=== PATIENT | female | born 1930 | race Hispanic/Latino ===

== ENCOUNTER 2017-01-03 13:16 | Outpatient (CLI) | payer MEDICARE, OTHER ==
--- NOTE | 2017-01-04 09:16 | Mammography Report ---
BILATERAL MAMMOGRAM with CAD: HISTORY: Cancer screening. Comparison study is dated March 27, 2013. FINDINGS: There are scattered fibroglandular densities (approximately 25%-50% glandular). No mass, distortion, suspicious calcification, or skin change is seen. IMPRESSION: Negative mammogram. There is no mammographic evidence of malignancy. RECOMMENDATION: Follow-up per ACS guidelines. BI-RADS CATEGORY: 1 = Negative ACR BI-RADS MAMMOGRAPHIC CODES: 0 = Needs additional imaging evaluation; 1 = Negative; 2 = Benign; 3 = Probably benign; 4 = Suspicious; 5 = Malignant; 6 = Known biopsy-proven malignancy COMMENT: 1. Dense breast tissue, i.e., adenosis, fibrocystic changes, etc., may obscure an underlying neoplasm. 2. Approximately 10% of cancers are not detected with mammography. 3. A negative mammography report should not delay biopsy if a clinically suspicious mass is present. COMMENT: Patient follow-up letters are generated in eventuosity.
== END 2017-01-03 13:17 | disposition home or self-care (01) ==
LOC: MAMMO 13:16
PROVIDERS: ATTEND Family Medicine
DX: Z12.31 Encounter for screening mammogram for malignant neoplasm of breast (principal)
CPT/HCPCS: 77067; G0202

== ENCOUNTER 2017-10-10 11:24 | Outpatient (CLI) | payer MEDICARE, OTHER ==
--- NOTE | 2017-10-12 07:50 | Vascular Lab Report ---
Right Lower Extremity Venous Duplex Study: Reason for Exam: Pain of the right lower extremity. Comments on the Right: All veins visualized are freely compressible without evidence of internal echogenicity. Flow is spontaneous and phasic throughout. No evidence of acute or chronic thrombus is seen in any of the vessels visualized. Comments on the Left: A limited duplex study was done of the proximal veins of the left lower extremity. All veins visualized are freely compressible without evidence of internal echogenicity. Flow is spontaneous and phasic throughout. No evidence of acute or chronic thrombus is seen in any of the vessels visualized. Impression: No evidence of acute or chronic deep venous thrombosis in the right lower extremity.
== END 2017-10-10 11:25 | disposition home or self-care (01) ==
LOC: VAS 11:24
PROVIDERS: ATTEND Family Medicine
DX: M79.661 Pain in right lower leg (principal)

== ENCOUNTER 2019-10-15 12:53 | Inpatient (IN) | payer MEDICARE, OTHER ==
--- NOTE | 2019-10-15 13:07 | Emergency Department Report ---
Blank Doc - Documentation Documentation: 89-year-old female that presents with CP and SOB. Was DX with PNA by PCP. This initial assessment/diagnostic orders/clinical plan/treatment(s) is/are subject to change based on patient's health status, clinical progression and re- assessment by fellow clinical providers in the ED. Further treatment and workup at subsequent clinical providers discretion. Patient/guardians urged not to elope from the ED as their condition may be serious if not clinically assessed and managed. Initial orders include: 1- Patient sent to MAIN ED for further evaluation and treatment 2- labs 3- EKG 4- CXR
[2019-10-15] MEDS ORDERED: ASPIRIN 81 MG TAB CHEW PO ONE (13:30)
[2019-10-15] MEDS ORDERED: ALBUTEROL 2.5 MG/3 ML NEBU IH ONE (13:31)
--- NOTE | 2019-10-15 13:34 | Emergency Department Report ---
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 SHE WAS TOLD SHE HAD PNA AND WAS STARTED ON AMOX/FLONASE AND DELSYM. SHE HAS HAD WORSENING SOB SO SHE COMES TO ER PMH GERD LBBB NUC IN 2016 NOMRAL; EF 55-60 HOME MEDS AMOX FLONASE DELSYM PPI ASA- SOMETIMES ANOTHER MED STARTS WITH "T" PT CAN NOT RECALL QUIT SMOKING 24 Y AGO PCP ESTRADA CARDS [facility] HEART DENIES FEVER OR CHILLS. ENDORSES COUGH FOR 1 YEAR. ON ADMIT TO ER- NO FEVER/TACHYCARDIA OR HYPOTENSION -: Gradual Context: recent illness Other Symptoms: cough Treatments Prior to Arrival: other Aspirin use within the Past 7 Days: (0) No - Related Data On Oral Contraceptives: No Home Medications Medication Instructions Recorded Confirmed Last Taken Aspirin [Aspirin BABY CHEW TAB] 81 mg PO QDAY 05/10/16 10/15/19 10/15/19 17:08 Esomeprazole Magnesium [NexIUM] 40 mg PO QDAY 05/10/16 10/15/19 10/14/19 08:00 Amoxicillin [Trimox CAP] 500 mg PO BID 10/15/19 10/15/19 10/14/19 14:00 Fluticasone [Flonase] 1 spray NS QDAY 10/15/19 10/15/19 10/14/19 21:00 predniSONE [Deltasone] 10 mg PO QDAY 10/15/19 10/15/19 10/15/19 08:00 Allergies Allergy/AdvReac Type Severity Reaction Status Date / Time No Known Allergies Allergy Unverified 05/10/16 12:42 Heart Score - HEART Score History: Slightly suspicious EKG: Normal Age: > 65 Risk factors: 1-2 risk factors Troponin: < normal limit HEART Score: 3 ED Review of Systems ROS: Stated complaint: EDGARDO Other details as noted in HPI Comment: All other systems reviewed and negative ED Past Medical Hx - Past Medical History Previous Medical History?: Yes Hx Hypertension: Yes Hx CVA: No Hx Heart Attack/AMI: No (NORMAL KIRTI 2015; EF 5560) Hx Congestive Heart Failure: No Hx Diabetes: No Hx Deep Vein Thrombosis: No Hx Pulmonary Embolism: No Hx GERD: Yes Hx Liver Disease: No Hx Renal Disease: No Hx of Cancer: No Hx Sickle Cell Disease: No Hx Arthritis: No Hx Headaches / Migraines: No Hx Seizures: No Hx Kidney Stones: No Hx Psychiatric Treatment: No Hx Asthma: No Hx COPD: Yes (SMOKER/ BRONCHITIS) Hx Tuberculosis: No Hx Dementia: No Hx HIV: No Additional medical history: KNOWN LBBB - Surgical History Past Surgical History?: Yes Hx Appendectomy: Yes Hx Breast Surgery: Yes Additional Surgical History: Hysterectomy - Family History Family history: no significant - Social History Smoking Status: Never Smoker Substance Use Type: None - Medications Home Medications: Home Medications Medication Instructions Recorded Confirmed Last Taken Type Aspirin [Aspirin BABY CHEW TAB] 81 mg PO QDAY 05/10/16 10/15/19 10/15/19 17:08 History Esomeprazole Magnesium [NexIUM] 40 mg PO QDAY 05/10/16 10/15/19 10/14/19 08:00 History Amoxicillin [Trimox CAP] 500 mg PO BID 10/15/19 10/15/19 10/14/19 14:00 History Fluticasone [Flonase] 1 spray NS QDAY 10/15/19 10/15/19 10/14/19 21:00 History predniSONE [Deltasone] 10 mg PO QDAY 10/15/19 10/15/19 10/15/19 08:00 History ED Physical Exam - General Limitations: No Limitations General appearance: alert, in no apparent distress, anxious - Head Head exam: Present: atraumatic, normocephalic - Eye Eye exam: Present: normal appearance - ENT ENT exam: Present: mucous membranes moist - Neck Neck exam: Present: normal inspection - Respiratory Respiratory exam: Present: normal lung sounds bilaterally, rales (BILATERAL). Absent: respiratory distress - Cardiovascular Cardiovascular Exam: Present: regular rate, normal rhythm. Absent: systolic murmur, diastolic murmur, rubs, gallop - GI/Abdominal GI/Abdominal exam: Present: soft, normal bowel sounds - Extremities Exam Extremities exam: Present: normal inspection - Back Exam Back exam: Present: normal inspection - Neurological Exam Neurological exam: Present: alert, oriented X3 - Psychiatric Psychiatric exam: Present: normal affect, normal mood - Skin Skin exam: Present: warm, dry, intact, normal color. Absent: rash ED Course Vital Signs 10/15/19 10/15/19 10/15/19 13:01 13:26 13:30 Temperature 98.2 F Pulse Rate 72 74 Pulse Rate [ Anterior Bilateral Throughout] Respiratory 24 28 H Rate Respiratory Rate [Anterior Bilateral Throughout] Blood Pressure 152/80 150/88 Blood Pressure [Left] O2 Sat by Pulse 98 100 100 Oximetry 10/15/19 10/15/19 10/15/19 13:31 13:40 13:45 Temperature Pulse Rate 70 66 Pulse Rate [ 76 Anterior Bilateral Throughout] Respiratory 22 26 H Rate Respiratory 20 Rate [Anterior Bilateral Throughout] Blood Pressure Blood Pressure 150/88 [Left] O2 Sat by Pulse 100 100 Oximetry 10/15/19 10/15/19 10/15/19 13:50 14:00 14:12 Temperature Pulse Rate 73 72 Pulse Rate [ Anterior Bilateral Throughout] Respiratory 22 26 H Rate Respiratory Rate [Anterior Bilateral Throughout] Blood Pressure 151/85 138/70 148/70 Blood Pressure [Left] O2 Sat by Pulse 99 99 96 Oximetry 10/15/19 10/15/19 10/15/19 14:14 14:20 14:30 Temperature Pulse Rate 73 72 72 Pulse Rate [ Anterior Bilateral Throughout] Respiratory 20 21 28 H Rate Respiratory Rate [Anterior Bilateral Throughout] Blood Pressure 138/84 138/84 Blood Pressure 142/79 [Left] O2 Sat by Pulse 99 99 99 Oximetry 10/15/19 10/15/19 10/15/19 14:40 14:50 15:00 Temperature Pulse Rate 73 73 69 Pulse Rate [ Anterior Bilateral Throughout] Respiratory 14 28 H 11 L Rate Respiratory Rate [Anterior Bilateral Throughout] Blood Pressure 139/82 152/80 159/81 Blood Pressure [Left] O2 Sat by Pulse 98 98 98 Oximetry 10/15/19 10/15/19 10/15/19 15:10 15:20 15:30 Temperature Pulse Rate 72 75 72 Pulse Rate [ Anterior Bilateral Throughout] Respiratory 27 H 17 22 Rate Respiratory Rate [Anterior Bilateral Throughout] Blood Pressure 159/81 152/77 154/82 Blood Pressure [Left] O2 Sat by Pulse 98 97 99 Oximetry 10/15/19 10/15/19 10/15/19 15:40 15:50 16:00 Temperature Pulse Rate 73 73 72 Pulse Rate [ Anterior Bilateral Throughout] Respiratory 21 27 H 20 Rate Respiratory Rate [Anterior Bilateral Throughout] Blood Pressure 154/82 161/91 156/94 Blood Pressure [Left] O2 Sat by Pulse 99 97 97 Oximetry - Reevaluation(s) Reevaluation #1: 10/15/[address] DESOUZA- WILL ADMIT Reevaluation #2: 10/15/19 15:15 LAB NOTIFIED ER OF LACTIC ACID FLUIDS ORDERED ELROY score - Elroy Score Age > 65: (1) Yes Aspirin use within the Past 7 Days: (0) No 3 or more CAD Risk Factors: (0) No 2 or more Angina events in past 24 hrs: (0) No Known CAD with more than 50% Stenosis: (0) No Elevated Cardiac Markers: (0) No ST Deviation Greater than 0.5mm: (0) No LEROY Score: 1 ED Medical Decision Making - Lab Data Result diagrams: 10/15/19 13:37 10/15/19 13:37 - EKG Data EKG shows normal: sinus rhythm Rate: normal - EKG Data When compared to previous EKG there are: no significant change Interpretation: no acute changes, other (KNOWN LBBB) - Radiology Data Radiology results: report reviewed, image reviewed - Medical Decision Making Lab Results 10/15/19 10/15/19 10/15/19 Range/Units 13:37 13:37 13:37 WBC 8.3 (4.5-11.0) K/mm3 RBC 3.61 L (3.65-5.03) M/mm3 Hgb 11.8 (10.1-14.3) gm/dl Hct 34.3 (30.3-42.9) % MCV 95 (79-97) fl MCH 33 H (28-32) pg MCHC 34 (30-34) % RDW 14.3 (13.2-15.2) % Plt Count 218 (140-440) K/mm3 Lymph % (Auto) 16.9 (13.4-35.0) % [place] % (Auto) 11.1 H (0.0-7.3) % Eos % (Auto) 1.0 (0.0-4.3) % Baso % (Auto) 0.5 (0.0-1.8) % Lymph # 1.4 (1.2-5.4) K/mm3 [place] # 0.9 H (0.0-0.8) K/mm3 Eos # 0.1 (0.0-0.4) K/mm3 Baso # 0.0 (0.0-0.1) K/mm3 Seg Neutrophils % 70.5 H (40.0-70.0) % Seg Neutrophils # 5.9 (1.8-7.7) K/mm3 PT 14.6 (12.2-14.9) Sec. INR 1.15 H (0.87-1.13) APTT 28.0 (24.2-36.6) Sec. Sodium 131 L (137-145) mmol/L Potassium 3.9 (3.6-5.0) mmol/L Chloride 94.9 L (98-107) mmol/L Carbon Dioxide 19 L (22-30) mmol/L Anion Gap 21 mmol/L BUN 21 H (7-17) mg/dL Creatinine 1.1 (0.7-1.2) mg/dL Estimated GFR 47 ml/min BUN/Creatinine Ratio 19 % Glucose 106 H (65-100) mg/dL Calcium 9.3 (8.4-10.2) mg/dL Magnesium 1.80 (1.7-2.3) mg/dL Total Bilirubin 0.60 (0.1-1.2) mg/dL AST 25 (5-40) units/L ALT 34 (7-56) units/L Alkaline Phosphatase 89 (35-129) units/L Troponin T 0.012 (0.00-0.029) ng/mL NT-Pro-B Natriuret Pep (0-900) pg/mL Total Protein 6.4 (6.3-8.2) g/dL Albumin 3.6 L (3.9-5) g/dL Albumin/Globulin Ratio 1.3 % 10/15/19 Range/Units 13:37 WBC (4.5-11.0) K/mm3 RBC (3.65-5.03) M/mm3 Hgb (10.1-14.3) gm/dl Hct (30.3-42.9) % MCV (79-97) fl MCH (28-32) pg MCHC (30-34) % RDW (13.2-15.2) % Plt Count (140-440) K/mm3 Lymph % (Auto) (13.4-35.0) % [place] % (Auto) (0.0-7.3) % Eos % (Auto) (0.0-4.3) % Baso % (Auto) (0.0-1.8) % Lymph # (1.2-5.4) K/mm3 [place] # (0.0-0.8) K/mm3 Eos # (0.0-0.4) K/mm3 Baso # (0.0-0.1) K/mm3 Seg Neutrophils % (40.0-70.0) % Seg Neutrophils # (1.8-7.7) K/mm3 PT (12.2-14.9) Sec. INR (0.87-1.13) APTT (24.2-36.6) Sec. Sodium (137-145) mmol/L Potassium (3.6-5.0) mmol/L Chloride (98-107) mmol/L Carbon Dioxide (22-30) mmol/L Anion Gap mmol/L BUN (7-17) mg/dL Creatinine (0.7-1.2) mg/dL Estimated GFR ml/min BUN/Creatinine Ratio % Glucose (65-100) mg/dL Calcium (8.4-10.2) mg/dL Magnesium (1.7-2.3) mg/dL Total Bilirubin (0.1-1.2) mg/dL AST (5-40) units/L ALT (7-56) units/L Alkaline Phosphatase (35-129) units/L Troponin T (0.00-0.029) ng/mL NT-Pro-B Natriuret Pep 70184 H (0-900) pg/mL Total Protein (6.3-8.2) g/dL Albumin (3.9-5) g/dL Albumin/Globulin Ratio % Vital Signs 10/15/19 10/15/19 10/15/19 13:01 13:31 13:45 Temperature 98.2 F Pulse Rate 72 70 Pulse Rate [ 76 Anterior Bilateral Throughout] Respiratory 24 22 Rate Respiratory 20 Rate [Anterior Bilateral Throughout] Blood Pressure 152/80 Blood Pressure 150/88 [Left] O2 Sat by Pulse 98 100 Oximetry 10/15/19 14:14 Temperature Pulse Rate 73 Pulse Rate [ Anterior Bilateral Throughout] Respiratory 20 Rate Respiratory Rate [Anterior Bilateral Throughout] Blood Pressure Blood Pressure 142/79 [Left] O2 Sat by Pulse 99 Oximetry KNOWN LBBB WITH NORMAL KIRTI IN 2016; TROP NEG; NORMAL EF AT THAT TIME xray noted labs noted antibiotics for CAP NS per sepsis protocol- discussed with Dr Desouza Staffed with Dr Villagomez Admit to hospital given failed outpatient management of CAP. Pt and significant other verbalize understanding of plan of care. - Differential Diagnosis RO ACS/ PNA Critical care attestation.: If time is entered above; I have spent that time in minutes in the direct care of this critically ill patient, excluding procedure time. ED Disposition Clinical Impression: Pneumonia, Failure of outpatient treatment Disposition: DC OP ADMIT IP TO THIS HOSP Is pt being admited?: Yes Does the pt Need Aspirin: No Condition: Stable Time of Disposition: 14:57
[2019-10-15 14:00] LABS: Basophils % (Auto) 0.5 % (0.0-1.8); Eosinophils # (Auto) 0.1 K/mm3 (0.0-0.4); Hematocrit 34.3 % (30.3-42.9); Hemoglobin 11.8 gm/dl (10.1-14.3); Lymphocytes # (Auto) 1.4 K/mm3 (1.2-5.4); Lymphocytes % (Auto) 16.9 % (13.4-35.0); Mean Corpuscular HGB Conc 34 % (30-34); Mean Corpuscular Volume 95 fl (79-97); Monocytes # (Auto) 0.9 K/mm3 (0.0-0.8); Monocytes % (Auto) 11.1 % (0.0-7.3); Platelet Count 218 K/mm3 (140-440); Red Blood Count 3.61 M/mm3 (3.65-5.03); Red Cell Distribution Width 14.3 % (13.2-15.2)
--- NOTE | 2019-10-15 14:09 | XRay Report ---
CHEST 1 VIEW INDICATION: sob. COMPARISON: 09/09/2016 FINDINGS: Support devices: None. Heart: Upper limits of normal in size. Pulmonary vasculature: Normal. Lungs/Pleura: Right hilar fullness and patchy medial right basal lung opacities. The upper lobes are clear. Mild opacification of the left costophrenic angle. The right costophrenic angle is clear. No p neumothorax. Additional findings: None. IMPRESSION: 1. Right hilar fullness and a right basal interstitial pneumonia. Recommend follow-up to resolution. Signer Name: Eleuterio Hoffman MD Signed: 10/15/2019 2:05 PM Workstation Name: [id number]
[2019-10-15 14:11] LABS: INR 1.15 (0.87-1.13)
[2019-10-15 14:21] LABS: Albumin 3.6 g/dL (3.9-5); Calcium 9.3 mg/dL (8.4-10.2)
[2019-10-15] MEDS: cefTRIAXone/NS 2 GM/100 ML 2 GM/100 ML BAG IV SCH ×2 (14:26→15:37)
[2019-10-15] MEDS ORDERED: SODIUM CHLORIDE 0.9% 1000 ML IV SOLN IV ONE (15:18)
--- NOTE | 2019-10-15 17:10 | History and Physical Report ---
History of Present Illness Date of examination: 10/15/19 Date of admission: 10/15/19 14:57 Chief complaint: cough, EDGARDO x 4 days History of present illness: Patient is a 89-year-old female with a past medical history of hypertension, and GERD whom was transported to ER via private car today with complaints of cough and difficulty breathing 4 days. She was seen by her social media executive ( Dr. Davenport) on Sunday where she was diagnosed with pneumonia and started on antibiotics and not responding to outpatient treatment. Patient reports also having cardiologists and was recently started on telmisartan 6 months ago but she's not sure why. Patient states that her difficulty breathing has increasingly gotten worse since her office visit. She denies chest pain at this time. Patient reports that she has quit smoking 30 years ago but prior to that smoked for 40 years. Past History Past Medical History: GERD, hypertension, other (LBBB) Past Surgical History: appendectomy, hysterectomy Social history: , smoking (quit 35 years ago) Family history: hypertension Medications and Allergies Allergies Allergy/AdvReac Type Severity Reaction Status Date / Time No Known Allergies Allergy Unverified 05/10/16 12:42 Home Medications Medication Instructions Recorded Confirmed Last Taken Type Aspirin [Aspirin BABY CHEW TAB] 81 mg PO QDAY 05/10/16 10/15/19 10/15/19 17:08 History Esomeprazole Magnesium [NexIUM] 40 mg PO QDAY 05/10/16 10/15/19 10/14/19 08:00 History Amoxicillin [Trimox CAP] 500 mg PO BID 10/15/19 10/15/19 10/14/19 14:00 History Fluticasone [Flonase] 1 spray NS QDAY 10/15/19 10/15/19 10/14/19 21:00 History predniSONE [Deltasone] 10 mg PO QDAY 10/15/19 10/15/19 10/15/19 08:00 History Active Meds: Active Medications Ceftriaxone Sodium (Rocephin/Ns 2 Gm/100 Ml) 2 gm in 100 mls @ 200 mls/hr IV Q24HR REY; Protocol Last Admin: 10/15/19 15:37 Dose: Not Given Documented by: Azithromycin 500 mg/ Sodium (Chloride) 250 mls @ 250 mls/hr IV Q24HR REY; Protocol Review of Systems Constitutional: no fever, no chills, no sweats, no fatigue, no weakness Ears, nose, mouth and throat: no nasal congestion, no nasal discharge, no dental pain, no mouth pain, no headache Breasts: no pain Cardiovascular: shortness of breath, high blood pressure, no chest pain, no rap id/irregular heart beat, no edema, no syncope, no leg edema Respiratory: cough, no home oxygen Gastrointestinal: constipation, no nausea, no vomiting, no diarrhea Genitourinary Female: no pelvic pain, no dysuria, no urinary frequency Menstruation: post hysterectomy Rectal: no pain, no bleeding Musculoskeletal: no neck stiffness, no neck pain, no shooting arm pain, no low back pain, no leg numbness/tingling Integumentary: no rash Neurological: no head injury, no weakness, no tingling, no seizures, no headaches, no change in speech, no change in mentation, no gait dysfunction Psychiatric: no sleep disturbances, no insomnia, no suicidal ideation, no anxiety attacks, no confusion Endocrine: no cold intolerance, no heat intolerance, no excessive sweating Hematologic/Lymphatic: no easy bruising, no easy bleeding Exam - Constitutional Vitals: Temp Pulse Resp BP Pulse Ox 97.6 F 73 20 147/71 98 10/15/19 16:31 10/15/19 16:31 10/15/19 16:31 10/15/19 16:31 10/15/19 16:31 General appearance: Present: no acute distress - EENT Eyes: Present: PERRL ENT: hearing intact, clear oral mucosa - Neck Neck: Present: supple, normal ROM - Respiratory Respiratory effort: normal Respiratory: right: rales, left: CTA - Cardiovascular Rhythm: regular Heart Sounds: Present: S1 & S2. Absent: rub, click - Extremities Extremities: pulses symmetrical, No edema Peripheral Pulses: within normal limits - Abdominal General gastrointestinal: Present: soft, non-tender, non-distended, normal bowel sounds Female genitourinary: Present: normal - Integumentary Integumentary: Present: warm, dry - Musculoskeletal Musculoskeletal: gait normal, strength equal bilaterally - Psychiatric Psychiatric: appropriate mood/affect, intact judgment & insight - Neurologic Neurologic: CNII-XII intact, moves all extremities Results - Labs CBC & Chem 7: 10/15/19 13:37 10/15/19 13:37 Labs: Laboratory Last Values WBC 8.3 K/mm3 (4.5-11.0) 10/15/19 13:37 RBC 3.61 M/mm3 (3.65-5.03) L 10/15/19 13:37 Hgb 11.8 gm/dl (10.1-14.3) 10/15/19 13:37 Hct 34.3 % (30.3-42.9) 10/15/19 13:37 MCV 95 fl (79-97) 10/15/19 13:37 MCH 33 pg (28-32) H 10/15/19 13:37 MCHC 34 % (30-34) 10/15/19 13:37 RDW 14.3 % (13.2-15.2) 10/15/19 13:37 Plt Count 218 K/mm3 (140-440) 10/15/19 13:37 Lymph % (Auto) 16.9 % (13.4-35.0) 10/15/19 13:37 [place] % (Auto) 11.1 % (0.0-7.3) H 10/15/19 13:37 Eos % (Auto) 1.0 % (0.0-4.3) 10/15/19 13:37 Baso % (Auto) 0.5 % (0.0-1.8) 10/15/19 13:37 Lymph # 1.4 K/mm3 (1.2-5.4) 10/15/19 13:37 [place] # 0.9 K/mm3 (0.0-0.8) H 10/15/19 13:37 Eos # 0.1 K/mm3 (0.0-0.4) 10/15/19 13:37 Baso # 0.0 K/mm3 (0.0-0.1) 10/15/19 13:37 Seg Neutrophils % 70.5 % (40.0-70.0) H 10/15/19 13:37 Seg Neutrophils # 5.9 K/mm3 (1.8-7.7) 10/15/19 13:37 PT 14.6 Sec. (12.2-14.9) 10/15/19 13:37 INR 1.15 (0.87-1.13) H 10/15/19 13:37 APTT 28.0 Sec. (24.2-36.6) 10/15/19 13:37 Sodium 131 mmol/L (137-145) L 10/15/19 13:37 Potassium 3.9 mmol/L (3.6-5.0) 10/15/19 13:37 Chloride 94.9 mmol/L (98-107) L 10/15/19 13:37 Carbon Dioxide 19 mmol/L (22-30) L 10/15/19 13:37 Anion Gap 21 mmol/L 10/15/19 13:37 BUN 21 mg/dL (7-17) H 10/15/19 13:37 Creatinine 1.1 mg/dL (0.7-1.2) 10/15/19 13:37 Estimated GFR 47 ml/min 10/15/19 13:37 BUN/Creatinine Ratio 19 % 10/15/19 13:37 Glucose 106 mg/dL (65-100) H 10/15/19 13:37 Lactic Acid 2.30 mmol/L (0.7-2.0) H* 10/15/19 14:45 Calcium 9.3 mg/dL (8.4-10.2) 10/15/19 13:37 Magnesium 1.80 mg/dL (1.7-2.3) 10/15/19 13:37 Total Bilirubin 0.60 mg/dL (0.1-1.2) 10/15/19 13:37 AST 25 units/L (5-40) 10/15/19 13:37 ALT 34 units/L (7-56) 10/15/19 13:37 Alkaline Phosphatase 89 units/L (35-129) 10/15/19 13:37 Troponin T 0.012 ng/mL (0.00-0.029) 10/15/19 13:37 NT-Pro-B Natriuret Pep 69032 pg/mL (0-900) H 10/15/19 13:37 Total Protein 6.4 g/dL (6.3-8.2) 10/15/19 13:37 Albumin 3.6 g/dL (3.9-5) L 10/15/19 13:37 Albumin/Globulin Ratio 1.3 % 10/15/19 13:37 - Imaging and Cardiology Chest x-ray: report reviewed (Right hilar fullness and a right basal interstit ial pneumonia. Recommend follow-up to) Assessment and Plan Assessment and plan: SIRS -Elevated lactic - Right hilar fullness and a right basal interstitial pneumonia on xray Pneumonia Chest x-ray reviewed Patient not responding to outpatient antibiotic therapy Antibiotics started Consult Pulmonogy Bronchodilators, IV steroid CHF -Elevated BNP reviewed -Echocardioagram -Continue home med -Diuretics Hyponatremia -monitor cbc DVT Prophylaxis -lovenox -SCDs while patient in bed VTE prophylaxis?: Mechanical Plan of care discussed with patient/family: Yes
[2019-10-15] MEDS: AZITHROMYCIN 500 MG in SODIUM CHLORIDE 0.9% 250ML 250 ML IV SCH (17:59)
[2019-10-15 18:26] LABS: Bilirubin,Urine NEG (Negative); Blood,Urine SM (Negative); Color,Urine Yellow (Yellow); Mucus,Urine FEW /HPF; Urobilinogen,Urine < 2.0 mg/dL (<2.0)
[2019-10-15] MEDS ORDERED: IPRATROPIUM/ALBUTEROL SULFATE 3 ML AMPUL.NEB IH PRN (19:40)
[2019-10-15] MEDS: IPRATROPIUM/ALBUTEROL SULFATE 3 ML AMPUL.NEB IH SCH (20:48)
[2019-10-15] MEDS: guaiFENesin ER 600 MG TAB PO SCH (21:41)
[2019-10-15] MEDS: methylPREDNISolone Sod Succinate 40 MG/1 ML INJ IV SCH (21:41)
[2019-10-15] MEDS ORDERED: methylPREDNISolone Sod Succinate 125 MG/2 ML INJ IV SCH (22:00)
[2019-10-16] MEDS: FUROSEMIDE 40 MG/4 ML INJ IV SCH (05:38)
[2019-10-16] MEDS: methylPREDNISolone Sod Succinate 40 MG/1 ML INJ IV SCH (05:38)
[2019-10-16 05:53] LABS: Basophils % (Auto) 0.2 % (0.0-1.8); Hematocrit 34.5 % (30.3-42.9); Hemoglobin 11.8 gm/dl (10.1-14.3); Lymphocytes # (Auto) 0.5 K/mm3 (1.2-5.4); Lymphocytes % (Auto) 8.8 % (13.4-35.0); Mean Corpuscular HGB Conc 34 % (30-34); Mean Corpuscular Volume 95 fl (79-97); Monocytes # (Auto) 0.3 K/mm3 (0.0-0.8); Monocytes % (Auto) 4.4 % (0.0-7.3); Platelet Count 188 K/mm3 (140-440); Red Blood Count 3.63 M/mm3 (3.65-5.03); Red Cell Distribution Width 14.2 % (13.2-15.2)
[2019-10-16] MEDS: IPRATROPIUM/ALBUTEROL SULFATE 3 ML AMPUL.NEB IH SCH ×4 (08:11→20:10)
[2019-10-16] MEDS: ENOXAPARIN 40 MG/0.4 ML INJ SUB-Q SCH (09:56)
[2019-10-16] MEDS: PANTOPRAZOLE 40 MG TAB PO SCH (09:56)
[2019-10-16] MEDS: guaiFENesin ER 600 MG TAB PO SCH ×2 (09:56→21:15)
[2019-10-16] MEDS: POTASSIUM CHLORIDE ER 20 MEQ TAB PO SCH (09:57)
[2019-10-16] MEDS: LOSARTAN 50 MG TAB PO SCH (09:57)
[2019-10-16] MEDS: cefTRIAXone/NS 2 GM/100 ML 2 GM/100 ML BAG IV SCH (09:58)
[2019-10-16] MEDS: ASPIRIN 81 MG TAB CHEW PO SCH (09:58)
[2019-10-16] MEDS: AZITHROMYCIN 500 MG in SODIUM CHLORIDE 0.9% 250ML 250 ML IV SCH (09:59)
[2019-10-16] MEDS ORDERED: NON-FORMULARY EACH (Esomeprazole Magnesium [Nexium] 40 MG) PO SCH (10:00)
--- NOTE | 2019-10-16 12:03 | Progress Note ---
Assessment and Plan Assessment and plan: Patient is a 89 yo woman with a history of hypertension and GERD who presented to [facility] ED with sob and cough. She was seen by her chief accounting officer ( Dr. Davenport) on Sunday where she was diagnosed with pneumonia and started on antibiotics and not responding to outpatient treatment. * relative normal CBC * Acidosis: lactosis and metabolic * proBNP 59780 * pCXR Impression: Right hilar fullness and right basilar interstitial pneumonia. Recommend follow-up to resolution. Right Aspiration Pneumonia: treat with dual coverage broad spectrum IV abx JOCELYN, vasomotor nephropathy cr 1.1, est GFR 47 (last Cr 0.7 in 2016): treat with IVF Accelerated hypertension: low salt diet, prn hydralazine IV UTI: urine culture and treat with abx No SIRS or sepsis found so far Constipation: miralax Hyponatremia, hypovolemia, dehydration: IVF, monitor bmp History Interval history: Patient was seen and examined. Follow-up on current diagnosis of PNA. No overnight events reported to me. Patient denies any chest pain, shortness breat h, nausea/vomiting or severe headaches. Imaging, nursing note, chart, labs and old chart reviewed. Discussed with patient. Hospitalist Physical - Physical exam Narrative exam: Gen: WDWN, NAD, Awake, Alert, Orientated HEENT: NCAT, EOMI, PERRL, OP Clear Neck: supple, no adenopathy, no thyromegaly, no JVD CVS/Heart: RRR, normal S1S2, pulses present bilaterally Chest/Lungs: tachypneic, right coarse BS, Symmetrical chest expansion, good air entry bilaterally GI/Abdomen: soft, NTND, good bowel sounds, no guarding or rebound /Bladder: no suprapubic tenderness, no CVA or paraspinal tenderness Extermity/Skin: no c/c/e, no obvious rash MSK: FROM x 4 Neuro: CN 2-12 grossly intact, no new focal deficits Psych: calm - Constitutional Vitals: Temp Pulse Resp BP Pulse Ox 97.2 F L 73 18 163/86 96 10/16/19 07:36 10/16/19 07:36 10/16/19 07:36 10/16/19 07:36 10/16/19 07:36 General appearance: Present: no acute distress Results - Labs CBC & Chem 7: 10/16/19 05:10 12/04/19 13:37 Labs: Laboratory Last Values WBC 6.2 K/mm3 (4.5-11.0) 10/16/19 05:10 RBC 3.63 M/mm3 (3.65-5.03) L 10/16/19 05:10 Hgb 11.8 gm/dl (10.1-14.3) 10/16/19 05:10 Hct 34.5 % (30.3-42.9) 10/16/19 05:10 MCV 95 fl (79-97) 10/16/19 05:10 MCH 33 pg (28-32) H 10/16/19 05:10 MCHC 34 % (30-34) 10/16/19 05:10 RDW 14.2 % (13.2-15.2) 10/16/19 05:10 Plt Count 188 K/mm3 (140-440) 10/16/19 05:10 Lymph % (Auto) 8.8 % (13.4-35.0) L 10/16/19 05:10 [place] % (Auto) 4.4 % (0.0-7.3) 10/16/19 05:10 Eos % (Auto) 0.0 % (0.0-4.3) 10/16/19 05:10 Baso % (Auto) 0.2 % (0.0-1.8) 10/16/19 05:10 Lymph # 0.5 K/mm3 (1.2-5.4) L 10/16/19 05:10 [place] # 0.3 K/mm3 (0.0-0.8) 10/16/19 05:10 Eos # 0.0 K/mm3 (0.0-0.4) 10/16/19 05:10 Baso # 0.0 K/mm3 (0.0-0.1) 10/16/19 05:10 Seg Neutrophils % 86.6 % (40.0-70.0) H 10/16/19 05:10 Seg Neutrophils # 5.3 K/mm3 (1.8-7.7) 10/16/19 05:10 PT 14.6 Sec. (12.2-14.9) 10/15/19 13:37 INR 1.15 (0.87-1.13) H 10/15/19 13:37 APTT 28.0 Sec. (24.2-36.6) 10/15/19 13:37 Sodium 131 mmol/L (137-145) L 10/15/19 13:37 Potassium 3.9 mmol/L (3.6-5.0) 10/15/19 13:37 Chloride 94.9 mmol/L (98-107) L 10/15/19 13:37 Carbon Dioxide 19 mmol/L (22-30) L 10/15/19 13:37 Anion Gap 21 mmol/L 10/15/19 13:37 BUN 21 mg/dL (7-17) H 10/15/19 13:37 Creatinine 1.1 mg/dL (0.7-1.2) 10/15/19 13:37 Estimated GFR 47 ml/min 10/15/19 13:37 BUN/Creatinine Ratio 19 % 10/15/19 13:37 Glucose 106 mg/dL (65-100) H 10/15/19 13:37 Lactic Acid 1.50 mmol/L (0.7-2.0) 10/15/19 23:30 Calcium 9.3 mg/dL (8.4-10.2) 10/15/19 13:37 Magnesium 1.80 mg/dL (1.7-2.3) 10/15/19 13:37 Total Bilirubin 0.60 mg/dL (0.1-1.2) 10/15/19 13:37 AST 25 units/L (5-40) 10/15/19 13:37 ALT 34 units/L (7-56) 10/15/19 13:37 Alkaline Phosphatase 89 units/L (35-129) 10/15/19 13:37 Troponin T 0.017 ng/mL (0.00-0.029) 10/15/19 19:31 NT-Pro-B Natriuret Pep 86961 pg/mL (0-900) H 10/15/19 13:37 Total Protein 6.4 g/dL (6.3-8.2) 10/15/19 13:37 Albumin 3.6 g/dL (3.9-5) L 10/15/19 13:37 Albumin/Globulin Ratio 1.3 % 10/15/19 13:37 Urine Color Yellow (Yellow) 10/15/19 18:15 Urine Turbidity Slightly-cloudy (Clear) 10/15/19 18:15 Urine pH 5.0 (5.0-7.0) 10/15/19 18:15 Ur Specific [place] 1.019 (1.003-1.030) 10/15/19 18:15 Urine Protein 100 mg/dl mg/dL (Negative) 10/15/19 18:15 Urine Glucose (UA) Neg mg/dL (Negative) 10/15/19 18:15 Urine Ketones Neg mg/dL (Negative) 10/15/19 18:15 Urine Blood Sm (Negative) 10/15/19 18:15 Urine Nitrite Neg (Negative) 10/15/19 18:15 Urine Bilirubin Neg (Negative) 10/15/19 18:15 Urine Urobilinogen < 2.0 mg/dL (<2.0) 10/15/19 18:15 Ur Leukocyte Esterase Mod (Negative) 10/15/19 18:15 Urine WBC (Auto) 40.0 /HPF (0.0-6.0) H 10/15/19 18:15 Urine RBC (Auto) 3.0 /HPF (0.0-6.0) 10/15/19 18:15 U Epithel Cells (Auto) 8.0 /HPF (0-13.0) 10/15/19 18:15 Urine Mucus Few /HPF 10/15/19 18:15 Active Medications - Current Medications Current Medications: Generic Name Dose Route Start Last Admin Trade Name Freq PRN Reason Stop Dose Admin Albuterol/Ipratropium 1 ampul 10/15/19 19:40 Duoneb *Not For Prn Use* IH Q3H PRN Wheezing Albuterol/Ipratropium 1 ampul 10/15/19 20:00 10/16/19 08:11 Duoneb *Not For Prn Use* IH 1 ampul QIDRT REY Administration Aspirin 81 mg 10/16/19 10:00 10/16/19 09:58 Baby Aspirin PO 81 mg QDAY REY Administration Enoxaparin Sodium 40 mg 10/16/19 10:00 10/16/19 09:56 Enoxaparin SUB-Q 40 mg DAILY REY Administration Furosemide 40 mg 10/16/19 06:00 10/16/19 05:38 Lasix IV 40 mg DAILY@0600 REY Administration Guaifenesin 600 mg 10/15/19 22:00 10/16/19 09:56 Mucinex Er PO 600 mg BID REY Administration Ceftriaxone Sodium 2 gm in 100 mls @ 200 mls/hr 10/15/19 15:00 10/16/19 09:58 Rocephin/Ns 2 Gm/100 Ml IV 200 mls/hr Q24HR REY Administration Protocol Azithromycin 500 mg/ Sodium 250 mls @ 250 mls/hr 10/15/19 15:00 10/16/19 09:59 Chloride IV 250 mls/hr Q24HR REY Administration Protocol Losartan Potassium 50 mg 10/16/19 10:00 10/16/19 09:57 Cozaar PO 50 mg QDAY REY Administration Pantoprazole Sodium 40 mg 10/16/19 10:00 10/16/19 09:56 Protonix PO 40 mg DAILY REY Administration Potassium Chloride 40 meq 10/16/19 10:00 10/16/19 09:57 K-Dur PO 40 meq QDAY REY Administration
[2019-10-16] MEDS: POLYETHYLENE GLYCOL 3350 17 GM POWDER PO SCH (15:05)
--- NOTE | 2019-10-16 15:16 | Consultation ---
History of Present Illness Consult date: 10/16/19 Requesting physician: WADE NEWSOME Reason for consult: COPD History of present illness: 89 y/o female with some form of Obstructive lung disease presumptively admitted with dypsnea, and acute respiratory failure. Per patient saw Dr. Snell and was started on Amoxicillin and Steroids. The bottles say Issac as she did a courtesy refill. patient smoked for about 20 years but was unable to perform PFT in office secondary to syncope many years ago. She denies any sputum production but has a continued cough. Worse at night. No fever. Has normal white count. Past History Past Medical History: GERD, hypertension, other (LBBB) Past Surgical History: appendectomy, hysterectomy Social history: , smoking (quit 35 years ago) Family history: hypertension Medications and Allergies Allergies Allergy/AdvReac Type Severity Reaction Status Date / Time No Known Allergies Allergy Unverified 05/10/16 12:42 Home Medications Medication Instructions Recorded Confirmed Last Taken Type Aspirin [Aspirin BABY CHEW TAB] 81 mg PO QDAY 05/10/16 10/15/19 10/15/19 17:08 History Esomeprazole Magnesium [NexIUM] 40 mg PO QDAY 05/10/16 10/15/19 10/14/19 08:00 History Amoxicillin [Trimox CAP] 500 mg PO BID 10/15/19 10/15/19 10/14/19 14:00 History Fluticasone [Flonase] 1 spray NS QDAY 10/15/19 10/15/19 10/14/19 21:00 History predniSONE [Deltasone] 10 mg PO QDAY 10/15/19 10/15/19 10/15/19 08:00 History Active Meds: Active Medications Albuterol/Ipratropium (Duoneb *Not For Prn Use*) 1 ampul IH Q3H PRN PRN Reason: Wheezing Albuterol/Ipratropium (Duoneb *Not For Prn Use*) 1 ampul IH QIDRT [facility] Last Admin: 10/16/19 15:00 Dose: 1 ampul Documented by: Aspirin (Baby Aspirin) 81 mg PO QDAY [facility] Last Admin: 10/16/19 09:58 Dose: 81 mg Documented by: Enoxaparin Sodium (Enoxaparin) 40 mg SUB-Q DAILY [facility] Last Admin: 10/16/19 09:56 Dose: 40 mg Documented by: Furosemide (Lasix) 40 mg IV DAILY@0600 [facility] Last Admin: 10/16/19 05:38 Dose: 40 mg Documented by: Guaifenesin (Mucinex Er) 600 mg PO BID [facility] Last Admin: 10/16/19 09:56 Dose: 600 mg Documented by: Ceftriaxone Sodium (Rocephin/Ns 2 Gm/100 Ml) 2 gm in 100 mls @ 200 mls/hr IV Q24HR [facility]; Protocol Last Admin: 10/16/19 09:58 Dose: 200 mls/hr Documented by: Azithromycin 500 mg/ Sodium (Chloride) 250 mls @ 250 mls/hr IV Q24HR [facility]; Protocol Last Admin: 10/16/19 09:59 Dose: 250 mls/hr Documented by: Losartan Potassium (Cozaar) 50 mg PO QDAY [facility] Last Admin: 10/16/19 09:57 Dose: 50 mg Documented by: Pantoprazole Sodium (Protonix) 40 mg PO DAILY [facility] Last Admin: 10/16/19 09:56 Dose: 40 mg Documented by: Polyethylene Glycol (Miralax [id number]) 17 gm PO QDAY [facility] Last Admin: 10/16/19 15:05 Dose: 17 gm Documented by: Potassium Chloride (K-Dur) 40 meq PO QDAY [facility] Last Admin: 10/16/19 09:57 Dose: 40 meq Documented by: Review of Systems All systems: negative Physical Examination Vital signs: Vital Signs Temp Pulse Resp BP Pulse Ox 98.2 F 72 24 152/80 98 10/15/19 13:01 10/15/19 13:01 10/15/19 13:01 10/15/19 13:01 10/15/19 13:01 General appearance: no acute distress, alert Eyes: non-icteric ENT: oropharynx moist Neck: supple, no JVD Effort: normal Ascultation: Bilateral: diminished breath sounds Percussion: Bilateral: not dull Tactile fremitus: Bilateral: normal Cardiovascular: regular rate and rhythm Gastrointestinal: normoactive bowel sounds, soft Extremities: edema Results - Laboratory Findings CBC and BMP: 10/17/19 05:05 10/17/19 05:10 PT/INR, D-dimer PT 14.6 Sec. (12.2-14.9) 10/15/19 13:37 INR 1.15 (0.87-1.13) H 10/15/19 13:37 Abnormal lab findings: Abnormal Labs 10/15/19 10/15/19 10/15/19 13:37 13:37 13:37 RBC 3.61 L MCH 33 H Lymph % (Auto) [place] % (Auto) 11.1 H Lymph # [place] # 0.9 H Seg Neutrophils % 70.5 H INR 1.15 H Sodium 131 L Chloride 94.9 L Carbon Dioxide 19 L BUN 21 H Glucose 106 H Lactic Acid NT-Pro-B Natriuret Pep Albumin 3.6 L Urine WBC (Auto) 10/15/19 10/15/19 10/15/19 13:37 14:45 18:15 RBC MCH Lymph % (Auto) [place] % (Auto) Lymph # [place] # Seg Neutrophils % INR Sodium Chloride Carbon Dioxide BUN Glucose Lactic Acid 2.30 H* NT-Pro-B Natriuret Pep 69640 H Albumin Urine WBC (Auto) 40.0 H 10/15/19 10/15/19 10/16/19 19:31 21:14 05:10 RBC 3.63 L MCH 33 H Lymph % (Auto) 8.8 L [place] % (Auto) Lymph # 0.5 L [place] # Seg Neutrophils % 86.6 H INR Sodium Chloride Carbon Dioxide BUN Glucose Lactic Acid 3.10 H* 3.10 H* NT-Pro-B Natriuret Pep Albumin Urine WBC (Auto) - Diagnostic Findings Chest x-ray: image reviewed (I feel the CXR is the same from 2016. Same Rads doc read it and suggest right hilar fullness.) Assessment and Plan 89 y/o female, followed by Kranthi with suspected allergies (per her), has never completed PFT's admitted with dyspnea and worsening shortness of breath with exertion 1. Patient was followed by [facility] for years but stopped going as she stated in halers were prescribed over and over and none of them ever improved. She had a syncopal event trying to do PFT's so these were never finished and she has a history of Mitral Valve Prolapse diagnosed 20+ years ago. at this point I would really suggest cardiology evaluation and possible ischemic work up. 2. Will continue Pulmicort but will stop Brovana 3. Ok with PRN neb therapy 4. No indication for systemic steroids.
[2019-10-17 05:52] LABS: Basophils % (Auto) 0.4 % (0.0-1.8); Eosinophils # (Auto) 0.1 K/mm3 (0.0-0.4); Eosinophils % (Auto) 1.1 % (0.0-4.3); Hematocrit 35.2 % (30.3-42.9); Hemoglobin 12.1 gm/dl (10.1-14.3); Lymphocytes # (Auto) 2.3 K/mm3 (1.2-5.4); Lymphocytes % (Auto) 24.2 % (13.4-35.0); Mean Corpuscular HGB Conc 34 % (30-34); Mean Corpuscular Volume 95 fl (79-97); Monocytes # (Auto) 1.2 K/mm3 (0.0-0.8); Monocytes % (Auto) 12.2 % (0.0-7.3); Platelet Count 202 K/mm3 (140-440); Red Blood Count 3.71 M/mm3 (3.65-5.03); Red Cell Distribution Width 14.5 % (13.2-15.2)
[2019-10-17] MEDS: FUROSEMIDE 40 MG/4 ML INJ IV SCH (05:55)
[2019-10-17 07:37] LABS: Albumin 3.6 g/dL (3.9-5); Calcium 8.8 mg/dL (8.4-10.2)
[2019-10-17] MEDS: IPRATROPIUM/ALBUTEROL SULFATE 3 ML AMPUL.NEB IH SCH ×3 (07:53→20:23)
[2019-10-17] MEDS: ENOXAPARIN 40 MG/0.4 ML INJ SUB-Q SCH (09:03)
[2019-10-17] MEDS: POLYETHYLENE GLYCOL 3350 17 GM POWDER PO SCH (09:03)
[2019-10-17] MEDS: guaiFENesin ER 600 MG TAB PO SCH ×2 (09:03→21:24)
[2019-10-17] MEDS: POTASSIUM CHLORIDE ER 20 MEQ TAB PO SCH (09:03)
[2019-10-17] MEDS: PANTOPRAZOLE 40 MG TAB PO SCH (09:04)
[2019-10-17] MEDS: ASPIRIN 81 MG TAB CHEW PO SCH (09:04)
[2019-10-17] MEDS: cefTRIAXone/NS 2 GM/100 ML 2 GM/100 ML BAG IV SCH (09:05)
[2019-10-17] MEDS: LOSARTAN 50 MG TAB PO SCH (09:05)
[2019-10-17] MEDS: AZITHROMYCIN 500 MG in SODIUM CHLORIDE 0.9% 250ML 250 ML IV SCH (10:05)
[2019-10-17] MEDS ORDERED: BENZONATATE 100 MG CAP PO ONE (15:00)
--- NOTE | 2019-10-17 15:42 | Progress Note ---
Assessment and Plan Assessment and plan: Patient is a 89 yo woman with a history of hypertension and GERD who presented to [facility] ED with sob and cough. She was seen by her optical manager ( Dr. Davenport) on Sunday where she was diagnosed with pneumonia and started on antibiotics and not responding to outpatient treatment. * relative normal CBC * Acidosis: lactosis and metabolic * proBNP 25641 * pCXR Impression: Right hilar fullness and right basilar interstitial pneumonia. Recommend follow-up to resolution. Right Aspiration Pneumonia: treat with dual coverage broad spectrum IV abx JOCELYN, vasomotor nephropathy cr 1.1, est GFR 47 (last Cr 0.7 in 2016): treat with IVF Accelerated hypertension: low salt diet, prn hydralazine IV UTI: urine culture and treat with abx No SIRS or sepsis found so far Constipation: miralax Hyponatremia, hypovolemia, dehydration: IVF, monitor bmp Constipation: tried miralax, give Dulcolax pr, we did discuss colonoscopy and gave her appropriate recommendation History Interval history: Patient was seen and examined. Follow-up on current diagnosis of PNA. No overnight events reported to me. Patient denies any chest pain, shortness breath, nausea/vomiting or severe headaches. Imaging, nursing note, chart, labs and old chart reviewed. Discussed with patient. Hospitalist Physical - Physical exam Narrative exam: Gen: WDWN, NAD, Awake, Alert, Orientated HEENT: NCAT, EOMI, PERRL, OP Clear Neck: supple, no adenopathy, no thyromegaly, no JVD CVS/Heart: RRR, normal S1S2, pulses present bilaterally Chest/Lungs: tachypneic, right coarse BS, Symmetrical chest expansion, good air entry bilaterally GI/Abdomen: soft, NTND, good bowel sounds, no guarding or rebound /Bladder: no suprapubic tenderness, no CVA or paraspinal tenderness Extermity/Skin: no c/c/e, no obvious rash MSK: FROM x 4 Neuro: CN 2-12 grossly intact, no new focal deficits Psych: calm - Constitutional Vitals: Temp Pulse Resp BP Pulse Ox 97.8 F 122 H 21 130/73 98 10/17/19 14:08 10/17/19 14:08 10/17/19 14:08 10/17/19 14:08 10/17/19 14:08 General appearance: Present: no acute distress Results - Labs CBC & Chem 7: 10/17/19 05:05 10/17/19 05:10 Labs: Laboratory Last Values WBC 9.6 K/mm3 (4.5-11.0) 10/17/19 05:05 RBC 3.71 M/mm3 (3.65-5.03) 10/17/19 05:05 Hgb 12.1 gm/dl (10.1-14.3) 10/17/19 05:05 Hct 35.2 % (30.3-42.9) 10/17/19 05:05 MCV 95 fl (79-97) 10/17/19 05:05 MCH 33 pg (28-32) H 10/17/19 05:05 MCHC 34 % (30-34) 10/17/19 05:05 RDW 14.5 % (13.2-15.2) 10/17/19 05:05 Plt Count 202 K/mm3 (140-440) 10/17/19 05:05 Lymph % (Auto) 24.2 % (13.4-35.0) 10/17/19 05:05 [place] % (Auto) 12.2 % (0.0-7.3) H 10/17/19 05:05 Eos % (Auto) 1.1 % (0.0-4.3) 10/17/19 05:05 Baso % (Auto) 0.4 % (0.0-1.8) 10/17/19 05:05 Lymph # 2.3 K/mm3 (1.2-5.4) 10/17/19 05:05 [place] # 1.2 K/mm3 (0.0-0.8) H 10/17/19 05:05 Eos # 0.1 K/mm3 (0.0-0.4) 10/17/19 05:05 Baso # 0.0 K/mm3 (0.0-0.1) 10/17/19 05:05 Seg Neutrophils % 62.1 % (40.0-70.0) 10/17/19 05:05 Seg Neutrophils # 6.0 K/mm3 (1.8-7.7) 10/17/19 05:05 PT 14.6 Sec. (12.2-14.9) 10/15/19 13:37 INR 1.15 (0.87-1.13) H 10/15/19 13:37 APTT 28.0 Sec. (24.2-36.6) 10/15/19 13:37 Sodium 136 mmol/L (137-145) L 10/17/19 05:10 Potassium 3.9 mmol/L (3.6-5.0) 10/17/19 05:10 Chloride 96.9 mmol/L (98-107) L 10/17/19 05:10 Carbon Dioxide 21 mmol/L (22-30) L 10/17/19 05:10 Anion Gap 22 mmol/L 10/17/19 05:10 BUN 22 mg/dL (7-17) H 10/17/19 05:10 Creatinine 1.1 mg/dL (0.7-1.2) 10/17/19 05:10 Estimated GFR 47 ml/min 10/17/19 05:10 BUN/Creatinine Ratio 20 % 10/17/19 05:10 Glucose 96 mg/dL (65-100) 10/17/19 05:10 Lactic Acid 1.50 mmol/L (0.7-2.0) 10/15/19 23:30 Calcium 8.8 mg/dL (8.4-10.2) 10/17/19 05:10 Magnesium 1.80 mg/dL (1.7-2.3) 10/15/19 13:37 Total Bilirubin 0.40 mg/dL (0.1-1.2) 10/17/19 05:10 AST 32 units/L (5-40) 10/17/19 05:10 ALT 39 units/L (7-56) 10/17/19 05:10 Alkaline Phosphatase 91 units/L (35-129) 10/17/19 05:10 Troponin T 0.017 ng/mL (0.00-0.029) 10/15/19 19:31 NT-Pro-B Natriuret Pep 07486 pg/mL (0-900) H 10/15/19 13:37 Total Protein 5.6 g/dL (6.3-8.2) L 10/17/19 05:10 Albumin 3.6 g/dL (3.9-5) L 10/17/19 05:10 Albumin/Globulin Ratio 1.8 % 10/17/19 05:10 Urine Color Yellow (Yellow) 10/15/19 18:15 Urine Turbidity Slightly-cloudy (Clear) 10/15/19 18:15 Urine pH 5.0 (5.0-7.0) 10/15/19 18:15 Ur Specific [place] 1.019 (1.003-1.030) 10/15/19 18:15 Urine Protein 100 mg/dl mg/dL (Negative) 10/15/19 18:15 Urine Glucose (UA) Neg mg/dL (Negative) 10/15/19 18:15 Urine Ketones Neg mg/dL (Negative) 10/15/19 18:15 Urine Blood Sm (Negative) 10/15/19 18:15 Urine Nitrite Neg (Negative) 10/15/19 18:15 Urine Bilirubin Neg (Negative) 10/15/19 18:15 Urine Urobilinogen < 2.0 mg/dL (<2.0) 10/15/19 18:15 Ur Leukocyte Esterase Mod (Negative) 10/15/19 18:15 Urine WBC (Auto) 40.0 /HPF (0.0-6.0) H 10/15/19 18:15 Urine RBC (Auto) 3.0 /HPF (0.0-6.0) 10/15/19 18:15 U Epithel Cells (Auto) 8.0 /HPF (0-13.0) 10/15/19 18:15 Urine Mucus Few /HPF 10/15/19 18:15 Active Medications - Current Medications Current Medications: Generic Name Dose Route Start Last Admin Trade Name Freq PRN Reason Stop Dose Admin Albuterol 2.5 mg 10/17/19 08:30 Proventil IH Q4HRT PRN Shortness Of Breath Albuterol/Ipratropium 1 ampul 10/17/19 14:00 10/17/19 14:15 Duoneb *Not For Prn Use* IH Not Given TIDRT REY Arformoterol Tartrate 15 mcg 10/17/19 20:00 Brovana Nebu IH Q12HRT REY Aspirin 81 mg 10/16/19 10:00 10/17/19 09:04 Baby Aspirin PO 81 mg QDAY REY Administration Benzonatate 100 mg 10/17/19 20:00 Tessalon Perles PO TID REY Budesonide 0.5 mg 10/17/19 20:00 Pulmicort IH Q12HRT REY Enoxaparin Sodium 40 mg 10/16/19 10:00 10/17/19 09:03 Enoxaparin SUB-Q 40 mg DAILY REY Administration Furosemide 40 mg 10/16/19 06:00 10/17/19 05:55 Lasix IV 40 mg DAILY@0600 REY Administration Guaifenesin 600 mg 10/15/19 22:00 10/17/19 09:03 Mucinex Er PO 600 mg BID REY Administration Ceftriaxone Sodium 2 gm in 100 mls @ 200 mls/hr 10/15/19 15:00 10/17/19 09:05 Rocephin/Ns 2 Gm/100 Ml IV 200 mls/hr Q24HR REY Administration Protocol Azithromycin 500 mg/ Sodium 250 mls @ 250 mls/hr 10/15/19 15:00 10/17/19 10:05 Chloride IV 250 mls/hr Q24HR REY Administration Protocol Losartan Potassium 50 mg 10/16/19 10:00 10/17/19 09:05 Cozaar PO 50 mg QDAY REY Administration Pantoprazole Sodium 40 mg 10/16/19 10:00 10/17/19 09:04 Protonix PO 40 mg DAILY REY Administration Polyethylene Glycol 17 gm 10/16/19 13:00 10/17/19 09:03 Miralax 3350 PO 17 gm QDAY REY Administration Potassium Chloride 40 meq 10/16/19 10:00 10/17/19 09:03 K-Dur PO 40 meq QDAY REY Administration
[2019-10-17] MEDS ORDERED: ARFORMOTEROL 15 MCG/2 ML NEBU IH SCH (20:00)
[2019-10-17] MEDS: BUDESONIDE 0.5 MG/2 ML NEBU IH SCH (20:22)
[2019-10-17] MEDS: BENZONATATE 100 MG CAP PO SCH (21:24)
[2019-10-18] MEDS: FUROSEMIDE 40 MG/4 ML INJ IV SCH (05:50)
[2019-10-18] MEDS: BUDESONIDE 0.5 MG/2 ML NEBU IH SCH ×2 (07:30→22:09)
[2019-10-18] MEDS: IPRATROPIUM/ALBUTEROL SULFATE 3 ML AMPUL.NEB IH SCH ×2 (07:31→13:46)
[2019-10-18] MEDS ORDERED: REGADENOSON 0.4 MG/5 ML INJ IV ONE ×2 (08:20→08:27)
--- NOTE | 2019-10-18 11:03 | Consultation ---
History of Present Illness Consult date: 10/18/19 Requesting physician: WADE NEWSOME Consult reason: abnormal cardiac enzymes, congestive heart failure, tachycardia History of present illness: Ms. Ornelas is an 89 y/o female who presented to [facility] with worsening SOB and cough x4 days. Her disciplinary hearing officer diagnosed her with pneumonia on Sunday and started antibiotics; however, these have provided no relief. A CXR in the ED was significant for right-sided pneumonia. Troponins mildly elevated to 0.012 and 0.017. Her medical history is significant for hypertension, GERD and chronic LBBB. She follows with Dr. Xiong in our office. Currently, she denies CP. An echocardiogram from 10/15/2019 found an EF of 30 to 35 percent, moderate AR, mild to moderate MR, minimal pericardial effusion, moderate pleural effusion and moderate pulmonary hypertension. Past History Past Medical History: GERD, hypertension, other (LBBB) Past Surgical History: appendectomy, hysterectomy Social history: , smoking (quit 35 years ago) Family history: hypertension Medications and Allergies Allergies Allergy/AdvReac Type Severity Reaction Status Date / Time No Known Allergies Allergy Unverified 05/10/16 12:42 Home Medications Medication Instructions Recorded Confirmed Last Taken Type Fluticasone [Flonase] 1 spray NS QDAY 10/15/19 10/15/19 10/14/19 21:00 History ALBUTEROL NEB's [Proventil 0.083% 2.5 mg IH Q4HRT PRN nebu 10/18/19 Unknown Rx NEBS] Aspirin [Aspirin BABY CHEW TAB] 81 mg PO QDAY #30 10/18/19 10/15/19 10/15/19 17:08 Rx Benzonatate [Tessalon Perles] 100 mg PO TID #15 capsule 10/18/19 Unknown Rx Budesonide [Pulmicort Respules] 0.5 mg IH Q12HRT #30 nebu 10/18/19 Unknown Rx Furosemide [Lasix TAB] 40 mg PO QDAY #30 tablet 10/18/19 Unknown Rx Ipratropium/Albuterol Sulfate 1 ampul IH TIDRT PRN #30 ampul.neb 10/18/19 Unknown Rx [DUONEB *Not for PRN Use*] Losartan [Cozaar] 50 mg PO QDAY #30 tablet 10/18/19 Unknown Rx Pantoprazole [Protonix TAB] 40 mg PO DAILY #30 tablet 10/18/19 Unknown Rx Polyethylene Glycol 3350 [Miralax 17 gm PO QDAY #30 powd.pack 10/18/19 Unknown Rx 3350] Potassium Chloride [K-Dur] 1 tab PO BID #60 tablet 10/18/19 Unknown Rx guaiFENesin ER [Mucinex ER] 600 mg PO BID #10 tablet 10/18/19 Unknown Rx levoFLOXacin [Levaquin] 750 mg PO QDAY 5 Days #5 tablet 10/18/19 Unknown Rx Active Meds: Active Medications Albuterol (Proventil) 2.5 mg IH Q4HRT PRN PRN Reason: Shortness Of Breath Albuterol/Ipratropium (Duoneb *Not For Prn Use*) 1 ampul IH TIDRT [facility] Last Admin: 10/18/19 07:31 Dose: 1 ampul Documented by: Aspirin (Baby Aspirin) 81 mg PO QDAY [facility] Last Admin: 10/17/19 09:04 Dose: 81 mg Documented by: Benzonatate (Tessalon Perles) 100 mg PO TID [facility] Last Admin: 10/17/19 21:24 Dose: 100 mg Documented by: Budesonide (Pulmicort) 0.5 mg IH Q12HRT [facility] Last Admin: 10/18/19 07:30 Dose: 0.5 mg Documented by: Enoxaparin Sodium (Enoxaparin) 40 mg SUB-Q DAILY [facility] Last Admin: 10/17/19 09:03 Dose: 40 mg Documented by: Furosemide (Lasix) 40 mg IV DAILY@0600 [facility] Last Admin: 10/18/19 05:50 Dose: 40 mg Documented by: Guaifenesin (Mucinex Er) 600 mg PO BID [facility] Last Admin: 10/17/19 21:24 Dose: 600 mg Documented by: Ceftriaxone Sodium (Rocephin/Ns 2 Gm/100 Ml) 2 gm in 100 mls @ 200 mls/hr IV Q24HR [facility]; Protocol Last Admin: 10/17/19 09:05 Dose: 200 mls/hr Documented by: Azithromycin 500 mg/ Sodium (Chloride) 250 mls @ 250 mls/hr IV Q24HR [facility]; Protocol Last Admin: 10/17/19 10:05 Dose: 250 mls/hr Documented by: Losartan Potassium (Cozaar) 50 mg PO QDAY [facility] Last Admin: 10/17/19 09:05 Dose: 50 mg Documented by: Pantoprazole Sodium (Protonix) 40 mg PO DAILY [facility] Last Admin: 10/17/19 09:04 Dose: 40 mg Documented by: Polyethylene Glycol (Miralax 3350) 17 gm PO QDAY [facility] Last Admin: 10/17/19 09:03 Dose: 17 gm Documented by: Potassium Chloride (K-Dur) 40 meq PO QDAY [facility] Last Admin: 10/17/19 09:03 Dose: 40 meq Documented by: Review of Systems All systems: negative Physical Examination Vital Signs Temp Pulse Resp BP Pulse Ox 98.2 F 72 24 152/80 98 10/15/19 13:01 10/15/19 13:01 10/15/19 13:01 10/15/19 13:01 10/15/19 13:01 General appearance: no acute distress HEENT: Positive: PERRL Neck: Positive: neck supple Cardiac: Positive: Reg Rate and Rhythm Lungs: Positive: clear to auscultation Neuro: Positive: Grossly Intact Abdomen: Positive: Unremarkable Female genitourinary: deferred Skin: Positive: Clear Musculoskeletal: Normal Range of Motion Extremities: Present: normal Results 10/17/19 05:05 10/17/19 05:10 - Imaging and Cardiology Echo: report reviewed (12/2018: EF 50 to 55%, moderate AR, moderate MR, moderate pulm htn) - EKG Interpretation EKG: sinus rhythm EKG interpretations - Telemetry EKG Rhythm: Sinus Rhythm AV and intraventricular conduction: left bundle branch block Assessment and Plan Ms. Ornelas is an 89 y/o female admitted with pneumonia. Echocardiogram on admission found an EF reduced to 30 to 35 percent from previously normal in December 2018. Stress test pending to evaluate this new cardiomyopathy. Continue losartan and Lasix. Will hold on home Coreg d/t non-specific beta blockade. Further recommendations pending hospital course. The patient has been seen in conjunction with Dr. Oviedo, who agrees with the assessment and plan. - Patient Problems (1) Pneumonia Current Visit: Yes Status: Acute (2) Acute HFrEF (heart failure with reduced ejection fraction) Current Visit: Yes Status: Acute (3) Cardiomyopathy Current Visit: Yes Status: Acute Qualifiers: Cardiomyopathy type: other Qualified Code(s): I42.8 - Other cardiomyopathi es (4) Hypertension Current Visit: Yes Status: Chronic (5) LBBB (left bundle branch block) Current Visit: Yes Status: Chronic (6) GERD (gastroesophageal reflux disease) Current Visit: Yes Status: Chronic
--- NOTE | 2019-10-18 11:50 | Progress Note ---
Assessment and Plan Assessment and plan: Patient is a 89 yo woman with a history of hypertension and GERD who presented to [facility] ED with sob and cough. She was seen by her brick handler ( Dr. Davenport) on Sunday where she was diagnosed with pneumonia and started on antibiotics and not responding to outpatient treatment. * relative normal CBC * Acidosis: lactosis and metabolic * proBNP 17085 * pCXR Impression: Right hilar fullness and right basilar interstitial pneumonia. Recommend follow-up to resolution. Right Aspiration Pneumonia: treat with dual coverage broad spectrum IV abx JOECLYN, vasomotor nephropathy cr 1.1, est GFR 47 (last Cr 0.7 in 2016): treated with IVF, plateau Accelerated hypertension: low salt diet, prn hydralazine IV UTI: urine culture and treat with abx No SIRS or sepsis found so far Chest pains, believed to be from pneumonia, d/w Pulmonoloy who recommended cardiology evaluation and possible ischemic work up: stress test and Cardiology consulted Constipation: miralax Hyponatremia, hypovolemia, dehydration: IVF, monitor bmp Constipation: tried miralax, give Dulcolax pr, we did discuss colonoscopy and gave her appropriate recommendation DVT ppx Disposition: continue inpatient care, d/c home if stress test is negative, she can continue abx at home. History Interval history: Patient was seen and examined. Follow-up on current diagnosis of PNA. No o vernight events reported to me. Patient denies any chest pain, shortness breath, nausea/vomiting or severe headaches. Imaging, nursing note, chart, labs and old chart reviewed. Discussed with patient. Hospitalist Physical - Physical exam Narrative exam: Gen: WDWN, NAD, Awake, Alert, Orientated HEENT: NCAT, EOMI, PERRL, OP Clear Neck: supple, no adenopathy, no thyromegaly, no JVD CVS/Heart: RRR, normal S1S2, pulses present bilaterally Chest/Lungs: tachypneic, right coarse BS, Symmetrical chest expansion, good air entry bilaterally GI/Abdomen: soft, NTND, good bowel sounds, no guarding or rebound /Bladder: no suprapubic tenderness, no CVA or paraspinal tenderness Extermity/Skin: no c/c/e, no obvious rash MSK: FROM x 4 Neuro: CN 2-12 grossly intact, no new focal deficits Psych: calm - Constitutional Vitals: Temp Pulse Resp BP Pulse Ox 97.5 F L 83 18 142/78 98 10/18/19 07:18 10/18/19 07:56 10/18/19 07:56 10/18/19 07:18 10/18/19 07:57 General appearance: Present: no acute distress Results - Labs CBC & Chem 7: 10/17/19 05:05 10/17/19 05:10 Labs: Laboratory Last Values WBC 9.6 K/mm3 (4.5-11.0) 10/17/19 05:05 RBC 3.71 M/mm3 (3.65-5.03) 10/17/19 05:05 Hgb 12.1 gm/dl (10.1-14.3) 10/17/19 05:05 Hct 35.2 % (30.3-42.9) 10/17/19 05:05 MCV 95 fl (79-97) 10/17/19 05:05 MCH 33 pg (28-32) H 10/17/19 05:05 MCHC 34 % (30-34) 10/17/19 05:05 RDW 14.5 % (13.2-15.2) 10/17/19 05:05 Plt Count 202 K/mm3 (140-440) 10/17/19 05:05 Lymph % (Auto) 24.2 % (13.4-35.0) 10/17/19 05:05 [place] % (Auto) 12.2 % (0.0-7.3) H 10/17/19 05:05 Eos % (Auto) 1.1 % (0.0-4.3) 10/17/19 05:05 Baso % (Auto) 0.4 % (0.0-1.8) 10/17/19 05:05 Lymph # 2.3 K/mm3 (1.2-5.4) 10/17/19 05:05 [place] # 1.2 K/mm3 (0.0-0.8) H 10/17/19 05:05 Eos # 0.1 K/mm3 (0.0-0.4) 10/17/19 05:05 Baso # 0.0 K/mm3 (0.0-0.1) 10/17/19 05:05 Seg Neutrophils % 62.1 % (40.0-70.0) 10/17/19 05:05 Seg Neutrophils # 6.0 K/mm3 (1.8-7.7) 10/17/19 05:05 PT 14.6 Sec. (12.2-14.9) 10/15/19 13:37 INR 1.15 (0.87-1.13) H 10/15/19 13:37 APTT 28.0 Sec. (24.2-36.6) 10/15/19 13:37 Sodium 136 mmol/L (137-145) L 10/17/19 05:10 Potassium 3.9 mmol/L (3.6-5.0) 10/17/19 05:10 Chloride 96.9 mmol/L (98-107) L 10/17/19 05:10 Carbon Dioxide 21 mmol/L (22-30) L 10/17/19 05:10 Anion Gap 22 mmol/L 10/17/19 05:10 BUN 22 mg/dL (7-17) H 10/17/19 05:10 Creatinine 1.1 mg/dL (0.7-1.2) 10/17/19 05:10 Estimated GFR 47 ml/min 10/17/19 05:10 BUN/Creatinine Ratio 20 % 10/17/19 05:10 Glucose 96 mg/dL (65-100) 10/17/19 05:10 Lactic Acid 1.50 mmol/L (0.7-2.0) 10/15/19 23:30 Calcium 8.8 mg/dL (8.4-10.2) 10/17/19 05:10 Magnesium 1.80 mg/dL (1.7-2.3) 10/15/19 13:37 Total Bilirubin 0.40 mg/dL (0.1-1.2) 10/17/19 05:10 AST 32 units/L (5-40) 10/17/19 05:10 ALT 39 units/L (7-56) 10/17/19 05:10 Alkaline Phosphatase 91 units/L (35-129) 10/17/19 05:10 Troponin T 0.017 ng/mL (0.00-0.029) 10/15/19 19:31 NT-Pro-B Natriuret Pep 12742 pg/mL (0-900) H 10/15/19 13:37 Total Protein 5.6 g/dL (6.3-8.2) L 10/17/19 05:10 Albumin 3.6 g/dL (3.9-5) L 10/17/19 05:10 Albumin/Globulin Ratio 1.8 % 10/17/19 05:10 Urine Color Yellow (Yellow) 10/15/19 18:15 Urine Turbidity Slightly-cloudy (Clear) 10/15/19 18:15 Urine pH 5.0 (5.0-7.0) 10/15/19 18:15 Ur Specific [place] 1.019 (1.003-1.030) 10/15/19 18:15 Urine Protein 100 mg/dl mg/dL (Negative) 10/15/19 18:15 Urine Glucose (UA) Neg mg/dL (Negative) 10/15/19 18:15 Urine Ketones Neg mg/dL (Negative) 10/15/19 18:15 Urine Blood Sm (Negative) 10/15/19 18:15 Urine Nitrite Neg (Negative) 10/15/19 18:15 Urine Bilirubin Neg (Negative) 10/15/19 18:15 Urine Urobilinogen < 2.0 mg/dL (<2.0) 10/15/19 18:15 Ur Leukocyte Esterase Mod (Negative) 10/15/19 18:15 Urine WBC (Auto) 40.0 /HPF (0.0-6.0) H 10/15/19 18:15 Urine RBC (Auto) 3.0 /HPF (0.0-6.0) 10/15/19 18:15 U Epithel Cells (Auto) 8.0 /HPF (0-13.0) 10/15/19 18:15 Urine Mucus Few /HPF 10/15/19 18:15 Active Medications - Current Medications Current Medications: Generic Name Dose Route Start Last Admin Trade Name Freq PRN Reason Stop Dose Admin Albuterol 2.5 mg 10/17/19 08:30 Proventil IH Q4HRT PRN Shortness Of Breath Albuterol/Ipratropium 1 ampul 10/17/19 14:00 10/18/19 07:31 Duoneb *Not For Prn Use* IH 1 ampul TIDRT REY Administration Aspirin 81 mg 10/16/19 10:00 10/17/19 09:04 Baby Aspirin PO 81 mg QDAY REY Administration Benzonatate 100 mg 10/17/19 20:00 10/17/19 21:24 Tessalon Perles PO 100 mg TID REY Administration Budesonide 0.5 mg 10/17/19 20:00 10/18/19 07:30 Pulmicort IH 0.5 mg Q12HRT REY Administration Enoxaparin Sodium 40 mg 10/16/19 10:00 10/17/19 09:03 Enoxaparin SUB-Q 40 mg DAILY ERY Administration Furosemide 40 mg 10/16/19 06:00 10/18/19 05:50 Lasix IV 40 mg DAILY@0600 REY Administration Guaifenesin 600 mg 10/15/19 22:00 10/17/19 21:24 Mucinex Er PO 600 mg BID REY Administration Ceftriaxone Sodium 2 gm in 100 mls @ 200 mls/hr 10/15/19 15:00 10/17/19 09:05 Rocephin/Ns 2 Gm/100 Ml IV 200 mls/hr Q24HR REY Administration Protocol Azithromycin 500 mg/ Sodium 250 mls @ 250 mls/hr 10/15/19 15:00 10/17/19 10:05 Chloride IV 250 mls/hr Q24HR REY Administration Protocol Losartan Potassium 50 mg 10/16/19 10:00 10/17/19 09:05 Cozaar PO 50 mg QDAY REY Administration Pantoprazole Sodium 40 mg 10/16/19 10:00 10/17/19 09:04 Protonix PO 40 mg DAILY REY Administration Polyethylene Glycol 17 gm 10/16/19 13:00 10/17/19 09:03 Miralax 3350 PO 17 gm QDAY REY Administration Potassium Chloride 40 meq 10/16/19 10:00 10/17/19 09:03 K-Dur PO 40 meq QDAY REY Administration
--- NOTE | 2019-10-18 11:55 | Discharge Summary ---
Providers - Providers Date of Admission: 10/16/19 13:00 Date of discharge: 10/18/19 Attending physician: WADE NEWSOME 10/15/19 19:04 Consult to Physician [CONS] Routine Comment: JOVANNI Consulting Provider: MILTON JACOBSON Physician Instructions: CONSULT WAS CALLED TO /[facility] Reason For Exam: pneumonia, cough 10/17/19 15:46 Consult to Physician [CONS] Routine Comment: called answClari ramey/ betty Consulting Provider: EDDIE GREENBERG Physician Instructions: Reason For Exam: CHF, elevated troponin, tachycardia Primary care physician: OSCAR DORADO MD Hospitalization Condition: Stable Hospital course: Patient is a 89 yo woman with a history of hypertension, GERD and COPD who presented to [facility] ED with sob and cough. She was seen by her parts back counter man ( Dr. Davenport) on Sunday where she was diagnosed with pneumonia and started on antibiotics and not responding to outpatient treatment. * relative normal CBC * Acidosis: lactosis and metabolic * proBNP 93761 * pCXR Impression: Right hilar fullness and right basilar interstitial pneumonia. Recommend follow-up to resolution. * 10/15/2019 transthoracic echocardiogram conclusions: Left ventricular size is mild to moderately dilated, global ventricular systolic function is severely decreased, estimated ejection fraction is 30-35%, left ventricular diastolic filling pattern is consistent with pseudonormalization, left atrium is mildly dilated, moderate AR, mild to moderate MR, minimal pericardial effusion, moderate pleural effusion, evidence of moderate pulmonary hypertension. Discharge Diagnoses: Right Aspiration Pneumonia: treat with dual coverage broad spectrum IV abx JOCELYN, vasomotor nephropathy cr 1.1, est GFR 47 (last Cr 0.7 in 2015): treated with IVF, plateau Acute combined heart failure, poa: treated with iv lasix, stress test pending, not on BB due to COPD Accelerated hypertension: low salt diet, prn hydralazine IV h/o COPD per Pulmonology UTI: urine culture and treat with abx No SIRS or sepsis found so far Chest pains, believed to be from pneumonia, d/w Pulmonoloy who recommended cardiology evaluation and possible ischemic work up: stress test and Cardiology consulted Constipation: miralax Hyponatremia, hypovolemia, dehydration: IVF, monitor bmp Constipation: tried miralax, give Dulcolax pr, we did discuss colonoscopy and gave her appropriate recommendation DVT ppx sq lovenox Disposition: d/c home if stress test is negative, she can continue abx at home. Disposition: DC-01 TO HOME OR SELFCARE Time spent for discharge: 36 minutes Core Measure Documentation - Palliative Care Palliative Care/ Comfort Measures: Not Applicable - Core Measures Any of the following diagnoses?: heart failure - VTE Discharge Requirements Deep Vein Thrombosis/Pulmonary Embolism Present on Admission: No Has pt received <5 days of overlap therapy or INR<2.0: No Anticoagulant overlap therapy prescribed at discharge: No Contraindication No Overlap Therapy order at DC: Not Indicated - Heart Failure Discharge Requirements SANDY/ARB for LVSD if EF <40%: Yes Beta amando at discharge: No Reason for no beta amando on DC: COPD Exam - Physical Exam Narrative exam: Gen: WDWN, NAD, Awake, Alert, Orientated HEENT: NCAT, EOMI, PERRL, OP Clear Neck: supple, no adenopathy, no thyromegaly, no JVD CVS/Heart: RRR, normal S1S2, pulses present bilaterally Chest/Lungs: tachypneic, right coarse BS, Symmetrical chest expansion, good air entry bilaterally GI/Abdomen: soft, NTND, good bowel sounds, no guarding or rebound /Bladder: no suprapubic tenderness, no CVA or paraspinal tenderness Extermity/Skin: no c/c/e, no obvious rash MSK: FROM x 4 Neuro: CN 2-12 grossly intact, no new focal deficits Psych: calm - Constitutional Vitals: Temp Pulse Resp BP Pulse Ox 97.5 F L 83 18 142/78 98 10/18/19 07:18 10/18/19 07:56 10/18/19 07:56 10/18/19 07:18 10/18/19 07:57 Plan Activity: other (no strenous activity ) Diet: low salt Follow up with: OSCAR DORADO MD [Primary Care Provider] - 3-5 Days MILTON JACOBSON MD [Staff Physician] - 7 Days EDDIE GREENBERG MD [Staff Physician] - 7 Days Prescriptions: Losartan [Cozaar] 50 mg PO QDAY #30 tablet Potassium Chloride [K-Dur] 1 tab PO BID #60 tablet Furosemide [Lasix TAB] 40 mg PO QDAY #30 tablet levoFLOXacin [Levaquin] 750 mg PO QDAY 5 Days #5 tablet Polyethylene Glycol 3350 [Miralax 3350] 17 gm PO QDAY #30 powd.pack guaiFENesin ER [Mucinex ER] 600 mg PO BID #10 tablet Pantoprazole [Protonix TAB] 40 mg PO DAILY #30 tablet Budesonide [Pulmicort Respules] 0.5 mg IH Q12HRT #30 nebu Benzonatate [Tessalon Perles] 100 mg PO TID #15 capsule Ipratropium/Albuterol Sulfate [DUONEB *Not for PRN Use*] 1 ampul IH TIDRT PRN #30 ampul.neb PRN Reason: Shortness Of Breath
--- NOTE | 2019-10-18 13:19 | Event Note ---
<TANISHA GALLARDO - Last Filed: 10/18/19 13:18> Date: 10/18/19 Stress test reviewed: Small, mild, reversible defect in inferoapical region. Recommend cardiac CT or coronary CTA for further evaluation. Greyson Gallardo NP / Sandie Jimenez MD <FRANCO JIMENEZ - Last Filed: 10/18/19 20:36> rec cardiac ct cor angio or invasive cor angio for further evaluation
--- NOTE | 2019-10-18 13:28 | Treadmill Report ---
NUCLEAR CARDIAC IMAGING INDICATION FOR PROCEDURE: Chest pain. Informed consent was obtained. Vasodilator stress was achieved following the intravenous administration of 0.4 mg of Lexiscan per protocol. Rest and stress nuclear cardiac images were performed following the intravenous administration of technetium-99m Myoview per protocol. Gated SPECT imaging demonstrates a mildly dilated diffusely hypokinetic left ventricle with a left ventricular ejection fraction of 43%. There were no significant left ventricular segmental wall motion abnormalities. Myocardial perfusion imaging demonstrates no significant cavity change between stress and rest. There is a small mild persistent mid anterior perfusion defect. This defect in the absence of an accompanying wall motion abnormality may be artifactual in origin. There is, however, in addition, a small mild reversible inferoapical perfusion defect. Nuclear cardiac imaging demonstrates mild left ventricular systolic dysfunction with evidence of a small area of myocardial ischemia in the inferoapical region of the left ventricle. JOB# [id number] NANCY/MARC
[2019-10-18] MEDS: cefTRIAXone/NS 2 GM/100 ML 2 GM/100 ML BAG IV SCH (15:37)
[2019-10-18] MEDS: BENZONATATE 100 MG CAP PO SCH ×3 (15:37→22:20)
[2019-10-18] MEDS: ENOXAPARIN 40 MG/0.4 ML INJ SUB-Q SCH (15:37)
[2019-10-18] MEDS: AZITHROMYCIN 500 MG in SODIUM CHLORIDE 0.9% 250ML 250 ML IV SCH (15:38)
[2019-10-18] MEDS: guaiFENesin ER 600 MG TAB PO SCH (15:38)
[2019-10-18] MEDS: ASPIRIN 81 MG TAB CHEW PO SCH (15:38)
[2019-10-18] MEDS: LOSARTAN 50 MG TAB PO SCH (15:38)
[2019-10-18] MEDS: PANTOPRAZOLE 40 MG TAB PO SCH (15:38)
[2019-10-18] MEDS: POTASSIUM CHLORIDE ER 20 MEQ TAB PO SCH (15:38)
[2019-10-18] MEDS: POLYETHYLENE GLYCOL 3350 17 GM POWDER PO SCH (15:39)
--- NOTE | 2019-10-18 16:43 | Progress Note ---
Assessment and Plan 89 y/o female, followed by Kranthi with suspected allergies (per her), has never completed PFT's admitted with dyspnea and worsening shortness of breath with exertion No new recommendations for today. Follow up cards recs regarding stress test. Continue inhaled steroid and will stop Scheduled duonebs. 1. Patient was followed by Rosibel for years but stopped going as she stated inhalers were prescribed over and over and none of them ever improved. She had a syncopal event trying to do PFT's so these were never finished and she has a history of Mitral Valve Prolapse diagnosed 20+ years ago. at this point I would really suggest cardiology evaluation and possible ischemic work up. 2. Will continue Pulmicort but will stop Brovana 3. Ok with PRN neb therapy 4. No indication for systemic steroids. Subjective Date of service: 10/18/19 Interval history: Stress test positive, I'm assuming based on the recs in the note. Code stroke called and now patient is in CT scanner. Breathing is stable. Still very short of breath with exertion. Objective Vital Signs - 12hr 10/18/19 10/18/19 10/18/19 07:18 07:56 07:57 Temperature 97.5 F L Pulse Rate 72 Pulse Rate [ 83 Anterior Bilateral Throughout] Respiratory 18 Rate Respiratory 18 Rate [Anterior Bilateral Throughout] Blood Pressure 142/78 O2 Sat by Pulse 98 98 Oximetry 10/18/19 10/18/19 10/18/19 09:34 09:42 09:48 Temperature Pulse Rate Pulse Rate [ Anterior Bilateral Throughout] Respiratory Rate Respiratory Rate [Anterior Bilateral Throughout] Blood Pressure 145/74 154/72 138/79 O2 Sat by Pulse Oximetry 10/18/19 10/18/19 10/18/19 09:49 09:50 09:53 Temperature Pulse Rate Pulse Rate [ Anterior Bilateral Throughout] Respiratory Rate Respiratory Rate [Anterior Bilateral Throughout] Blood Pressure 145/66 138/63 145/63 O2 Sat by Pulse Oximetry 10/18/19 10/18/19 10/18/19 09:55 13:47 14:36 Temperature 97.9 F Pulse Rate 77 Pulse Rate [ 87 Anterior Bilateral Throughout] Respiratory 18 Rate Respiratory 18 Rate [Anterior Bilateral Throughout] Blood Pressure 145/70 142/63 O2 Sat by Pulse 97 Oximetry Constitutional: no acute distress, alert Eyes: non-icteric ENT: oropharynx moist Neck: supple, no JVD Effort: normal Ascultation: Bilateral: diminished breath sounds Percussion: Bilateral: not dull Tactile fremitus: Bilateral: normal Cardiovascular: regular rate and rhythm Gastrointestinal: normoactive bowel sounds, soft Extremities: edema CBC and BMP: 10/17/19 05:05 10/17/19 05:10 ABG, PT/INR, D-dimer: PT/INR, D-dimer PT 14.6 Sec. (12.2-14.9) 10/15/19 13:37 INR 1.15 (0.87-1.13) H 10/15/19 13:37 Abnormal lab findings: Abnormal Labs 10/15/19 10/15/19 10/15/19 13:37 13:37 13:37 RBC 3.61 L MCH 33 H Lymph % (Auto) [place] % (Auto) 11.1 H Lymph # [place] # 0.9 H Seg Neutrophils % 70.5 H INR 1.15 H Sodium 131 L Chloride 94.9 L Carbon Dioxide 19 L BUN 21 H Glucose 106 H Lactic Acid NT-Pro-B Natriuret Pep Total Protein Albumin 3.6 L Urine WBC (Auto) 10/15/19 10/15/19 10/15/19 13:37 14:45 18:15 RBC MCH Lymph % (Auto) [place] % (Auto) Lymph # [place] # Seg Neutrophils % INR Sodium Chloride Carbon Dioxide BUN Glucose Lactic Acid 2.30 H* NT-Pro-B Natriuret Pep 22881 H Total Protein Albumin Urine WBC (Auto) 40.0 H 10/15/19 10/15/19 10/16/19 19:31 21:14 05:10 RBC 3.63 L MCH 33 H Lymph % (Auto) 8.8 L [place] % (Auto) Lymph # 0.5 L [place] # Seg Neutrophils % 86.6 H INR Sodium Chloride Carbon Dioxide BUN Glucose Lactic Acid 3.10 H* 3.10 H* NT-Pro-B Natriuret Pep Total Protein Albumin Urine WBC (Auto) 10/17/19 10/17/19 05:05 05:10 RBC MCH 33 H Lymph % (Auto) [place] % (Auto) 12.2 H Lymph # [place] # 1.2 H Seg Neutrophils % INR Sodium 136 L Chloride 96.9 L Carbon Dioxide 21 L BUN 22 H Glucose Lactic Acid NT-Pro-B Natriuret Pep Total Protein 5.6 L Albumin 3.6 L Urine WBC (Auto)
--- NOTE | 2019-10-18 17:12 | Cat Scan Report ---
CT HEAD WITHOUT CONTRAST INDICATION / CLINICAL INFORMATION: right sided weakness. TECHNIQUE: All CT scans at this location are performed using CT dose reduction for ALARA by means of automated e xposure control. COMPARISON: None available. FINDINGS: HEMORRHAGE: No evidence of intracranial hemorrhage or extra-axial fluid collection. EXTRA-AXIAL SPACES: Cortical sulci and sylvian fissures are enlarged reflecting a degree of parenchym al volume loss which is within normal limits for the patient's age of 89 years. Basilar cisterns have an unremarkable appearance. VENTRICULAR SYSTEM: The third and lateral ventricles are enlarged reflecting resonance of age related parenchymal volume loss. CEREBRAL PARENCHYMA: Periventricular and deep white matter lucency is observed. This is probably seco ndary to microvascular ischemic change. There is no indication of recent infarction. No areas of ence phalomalacia are identified. MIDLINE SHIFT OR HERNIATION: There is no mass effect. CEREBELLUM / BRAINSTEM: Brainstem and cerebellum have an unremarkable appearance. INTRACRANIAL VESSELS:Calcified atherosclerotic plaque is present along the course of the cavernous se gments of both internal carotid arteries. Similar findings are seen at the distal vertebral arteries. ORBITS: Status post bilateral cataract surgery. Visualized Portions of the orbits have an otherwise u nremarkable appearance. SOFT TISSUES of HEAD: No significant abnormality. CALVARIUM: Evaluation of bone windows reveals no abnormalities. PARANASAL SINUSES / MASTOID AIR CELLS: Paranasal sinuses are free from inflammatory mucosal disease. Mastoid air cells are normally pneumatized. IMPRESSION: 1. Age-related involutional changes of parenchymal volume loss and microvascular ischemia. 2. No acute intracranial abnormalities are identified. Code stroke patient I was provided with a contact phone number ([phone]). Calls to that number went unanswered. Signer Name: Vitaliy Hinds MD Signed: 10/18/2019 5:07 PM Workstation Name: [id number]
[2019-10-18] MEDS ORDERED: SODIUM CHLORIDE 0.9% 50 ML IVPB IV ONE (17:17)
[2019-10-18] MEDS ORDERED: ALTEPLASE 100 MG INJ KIT IV ONE ×2 (17:17)
--- NOTE | 2019-10-18 17:37 | Consultation ---
History of Present Illness Consult date: 10/18/19 History of present illness: [facility] Date of Service: 10/18/2019 16:55:50 Impression: Left Hemispheric Infarct Comments: Differential Diagnosis: 1. Cardioembolic stroke 2. Small vessel disease/lacune 3. Thromboembolic, [id number]-[id number] mechanism 4. Hypercoagulable state-related infarct 5. Thrombotic mechanism, large artery disease 6. Transient ischemic attack Metrics: Last Known Well: 10/18/2019 16:00:00 [facility] Notification Time: 10/18/2019 16:54:50 Stamp Time: 10/18/2019 16:55:50 Time First Login Attempt: 10/18/2019 16:59:07 Video Start Time: 10/18/2019 16:59:07 Symptoms: right sided weakness/numbness NIHSS Start Assessment Time: 10/18/2019 16:59:07 tPA Verbal Order Time: 10/18/2019 17:17:39 Patient is a candidate for tPA. tPA CPOE Order Time: 10/18/2019 17:22:22 Needle Time: 10/18/2019 18:02:51 Weight Noted by Staff: 74.5 kg Video End Time: 10/18/2019 18:10:48 CT head was reviewed. Advanced imaging was reviewed. Radiologist was called back for review of advanced imaging on 10/18/2019 18:05:56 Verbal Consent to tPA: I have explained to the Patient and Family the nature of the patients condition, the use of tPA fibrinolytic agent, and the benefits to be reasonably expected compared with alternative approaches. I have discussed the likelihood of major risks or complications of this procedure including (if applicable) but not limited to loss of limb function, brain damage, paralysis, hemorrhage, infection, complications from transfusion of blood components, drug reactions, blood clots and loss of life. I have also indicated that with any procedure there is always the possibility of an unexpected complication. All questions were answered and Patient and Family express understanding of the treatment plan and consent to the treatment. Our recommendations are outlined below. Recommendations: IV tPA recommended. IV tPA Total Dose 67.0 mg IV tPA Bolus Dose 6.7 mg IV tPA Infusion Dose - 60.3 mg Routine post tPA monitoring including neuro checks and blood pressure control during/after treatment Monitor blood pressure Check blood pressure and NIHSS ev galen 15 min for 2 h, then every 30 min for 6 h, and finally every hour for 16 h. Manage Blood Pressure per post tPA protocol. Admission to ICU CT brain 24 hours post tPA NPO until swallowing screen performed and passed No antiplatelet agents or anticoagulants (including heparin for DVT prophylaxis) in first 24 hours No Enamorado catheter, nasogastric tube, arterial catheter or central venous catheter for 24 hr, unless absolutely necessary Telemetry Bedside swallow evaluation HOB less than 30 degrees Euglycemia Avoid hyperthermia, PRN acetaminophen DVT prophylaxis Inpatient Neurology Consultation Stroke evaluation as per inpatient neurology recommendations Additional Recommendations: MRI Head Without Contrast Start Atorvastatin Lipid Panel Check Hgb A1c Dysphagia Screen DVT Prophylaxis Hyperglycemia Treatment as per Primary Team PT/ OT / Speech Therapy Consultation Neurology to Be Consulted for Inpatient Routine Consultation Discussed with ED physician History of Present Illness: Patient is a 89 years old Female. Inpatient stroke alert was called for symptoms of right sided weakness/numbness 89 y/o woman with h/o HTN who was admitted for pneumoinia. Emergent telestroke consult requested for right sided numbness and weakness since 1600. Patient's boyfriend at the bedside. All questions answered. Hospitalist (Dr. Elizabeth) and at the bedside. Case also discussed with snowmaker (Dr. Saavedra) . We discussed the risk and benefits and alternatives to IV TPA and the patient agrees to proceed with IV TPA. Son at bedside. All questions answered. Time out given before IV TPA. CT head was reviewed. Examination: BP(148/74), Blood Glucose(80) 1A: Level of Consciousness - Alert; keenly responsive + 0 1B: Ask Month and Age - Both Questions Right + 0 1C: Blink Eyes & Squeeze Hands - Performs Both Tasks + 0 2: Test Horizontal Extraocular Movements - Normal + 0 3: Test Visual Cobb - No Visual Loss + 0 4: Test Facial Palsy (Use Grimace if Obtunded) - Minor paralysis (flat nasolabial fold, smile asymetry) + 1 5A: Test Left Arm Motor Drift - No Drift for 10 Seconds + 0 5B: Test Right Arm Motor Drift - Drift, but doesn't hit bed + 1 6A: Test Left Leg Motor Drift - No Drift for 5 Seconds + 0 6B: Test Right Leg Motor Drift - Drift, but doesn't hit bed + 1 7: Test Limb Ataxia (FNF/Heel-Leon) - No Ataxia + 0 8: Test Sensation - Mild-Moderate Loss: Less Sharp/More Dull + 1 9: Test Language/Aphasia - Normal; No aphasia + 0 10: Test Dysarthria - Mild-Moderate Dysarthria: Slurring but can be understood + 1 11: Test Extinction/Inattention - No abnormality + 0 NIHSS Score: 5 Patient was informed the Neurology Consult would happen via TeleHealth consult by way of interactive audio and video telecommunications and consented to receiving care in this manner. Due to the immediate potential for life-threatening deterioration due to underlying acute neurologic illness, I spent 70 minutes providing critical care. This time includes time for face to face visit via telemedicine, review of medical records, imaging studies and discussion of findings with providers, the patient and/or family. Dr Miki Odell [facility] Case [id number] Past History Past Medical History: GERD, hypertension, other (LBBB) Past Surgical History: appendectomy, hysterectomy Social history: , smoking (quit 35 years ago) Family history: hypertension Medications and Allergies Allergies Allergy/AdvReac Type Severity Reaction Status Date / Time No Known Allergies Allergy Unverified 05/10/16 12:42 Home Medications Medication Instructions Recorded Confirmed Last Taken Type Fluticasone [Flonase] 1 spray NS QDAY 10/15/19 10/15/19 10/14/19 21:00 History ALBUTEROL NEB's [Proventil 0.083% 2.5 mg IH Q4HRT PRN nebu 10/18/19 Unknown Rx NEBS] Aspirin [Aspirin BABY CHEW TAB] 81 mg PO QDAY #30 10/18/19 10/15/19 10/15/19 17:08 Rx Benzonatate [Tessalon Perles] 100 mg PO TID #15 capsule 10/18/19 Unknown Rx Budesonide [Pulmicort Respules] 0.5 mg IH Q12HRT #30 nebu 10/18/19 Unknown Rx Furosemide [Lasix TAB] 40 mg PO QDAY #30 tablet 10/18/19 Unknown Rx Ipratropium/Albuterol Sulfate 1 ampul IH TIDRT PRN #30 ampul.neb 10/18/19 Unknown Rx [DUONEB *Not for PRN Use*] Losartan [Cozaar] 50 mg PO QDAY #30 tablet 10/18/19 Unknown Rx Pantoprazole [Protonix TAB] 40 mg PO DAILY #30 tablet 10/18/19 Unknown Rx Polyethylene Glycol 3350 [Miralax 17 gm PO QDAY #30 powd.pack 10/18/19 Unknown Rx 3350] Potassium Chloride [K-Dur] 1 tab PO BID #60 tablet 10/18/19 Unknown Rx guaiFENesin ER [Mucinex ER] 600 mg PO BID #10 tablet 10/18/19 Unknown Rx levoFLOXacin [Levaquin] 750 mg PO QDAY 5 Days #5 tablet 10/18/19 Unknown Rx Active Meds: Active Medications Albuterol (Proventil) 2.5 mg IH Q4HRT PRN PRN Reason: Shortness Of Breath Aspirin (Baby Aspirin) 81 mg PO QDAY [facility] Last Admin: 10/18/19 15:38 Dose: 81 mg Documented by: Benzonatate (Tessalon Perles) 100 mg PO TID [facility] Last Admin: 10/18/19 15:37 Dose: 100 mg Documented by: Budesonide (Pulmicort) 0.5 mg IH Q12HRT [facility] Last Admin: 10/18/19 07:30 Dose: 0.5 mg Documented by: Furosemide (Lasix) 40 mg IV DAILY@0600 [facility] Last Admin: 10/18/19 05:50 Dose: 40 mg Documented by: Guaifenesin (Mucinex Er) 600 mg PO BID [facility] Last Admin: 10/18/19 15:38 Dose: 600 mg Documented by: Ceftriaxone Sodium (Rocephin/Ns 2 Gm/100 Ml) 2 gm in 100 mls @ 200 mls/hr IV Q24HR [facility]; Protocol Last Admin: 10/18/19 15:37 Dose: 200 mls/hr Documented by: Azithromycin 500 mg/ Sodium (Chloride) 250 mls @ 250 mls/hr IV Q24HR [facility]; Protocol Last Admin: 10/18/19 15:38 Dose: 250 mls/hr Documented by: Losartan Potassium (Cozaar) 50 mg PO QDAY [facility] Last Admin: 10/18/19 15:38 Dose: 50 mg Documented by: Pantoprazole Sodium (Protonix) 40 mg PO DAILY [facility] Last Admin: 10/18/19 15:38 Dose: 40 mg Documented by: Polyethylene Glycol (Miralax 3350) 17 gm PO QDAY [facility] Last Admin: 10/18/19 15:39 Dose: 17 gm Documented by: Potassium Chloride (K-Dur) 40 meq PO QDAY [facility] Last Admin: 10/18/19 15:38 Dose: 40 meq Documented by: Physical Examination - Vital Signs Vital Signs: Vital Signs Temp Pulse Resp BP Pulse Ox 98.2 F 72 24 152/80 98 10/15/19 13:01 10/15/19 13:01 10/15/19 13:01 10/15/19 13:01 10/15/19 13:01 Results - Laboratory Findings CBC and BMP: 10/17/19 05:05 10/17/19 05:10 Abnormal Lab Findings: Abnormal Labs 10/15/19 10/15/19 10/15/19 13:37 13:37 13:37 RBC 3.61 L MCH 33 H Lymph % (Auto) [place] % (Auto) 11.1 H Lymph # [place] # 0.9 H Seg Neutrophils % 70.5 H INR 1.15 H Sodium 131 L Chloride 94.9 L Carbon Dioxide 19 L BUN 21 H Glucose 106 H Lactic Acid NT-Pro-B Natriuret Pep Total Protein Albumin 3.6 L Urine WBC (Auto) 10/15/19 10/15/19 10/15/19 13:37 14:45 18:15 RBC MCH Lymph % (Auto) [place] % (Auto) Lymph # [place] # Seg Neutrophils % INR Sodium Chloride Carbon Dioxide BUN Glucose Lactic Acid 2.30 H* NT-Pro-B Natriuret Pep 63233 H Total Protein Albumin Urine WBC (Auto) 40.0 H 10/15/19 10/15/19 10/16/19 19:31 21:14 05:10 RBC 3.63 L MCH 33 H Lymph % (Auto) 8.8 L [place] % (Auto) Lymph # 0.5 L [place] # Seg Neutrophils % 86.6 H INR Sodium Chloride Carbon Dioxide BUN Glucose Lactic Acid 3.10 H* 3.10 H* NT-Pro-B Natriuret Pep Total Protein Albumin Urine WBC (Auto) 10/17/19 10/17/19 05:05 05:10 RBC MCH 33 H Lymph % (Auto) [place] % (Auto) 12.2 H Lymph # [place] # 1.2 H Seg Neutrophils % INR Sodium 136 L Chloride 96.9 L Carbon Dioxide 21 L BUN 22 H Glucose Lactic Acid NT-Pro-B Natriuret Pep Total Protein 5.6 L Albumin 3.6 L Urine WBC (Auto)
[2019-10-18] MEDS ORDERED: SODIUM CHLORIDE 0.9% 500 ML 500 ML IV ONE (17:41)
--- NOTE | 2019-10-18 17:42 | Event Note ---
Date: 10/18/19 After the stress test, Patient c/o acute episode of loss of movement of right leg and arm and right eye blindness. I called [facility] and notified Service Greeter Jurgen. TELENeurologist Dr. Miki Odell responded. Patient had CT head without contrast that did not show any acute changes. Then she had CTA head and neck followed by 500ml Normal saline. She will be sent to ICU and tPA to be given. Dr. Saavedra notified CCT 35 minutes
[2019-10-18] MEDS ORDERED: ALTEPLASE 100 MG INJ KIT ONE ×2 (17:44→17:46)
--- NOTE | 2019-10-18 18:21 | Cat Scan Report ---
CTA head with intravenous contrast CLINICAL HISTORY: Right hemiparesis TECHNIQUE: 1.25 mm thick contiguous axial scans were obtained from the skull base to the skull vertex during rap id bolus administration of intravenous contrast material. Multiplanar reconstructions were produced i n the coronal and sagittal planes. In addition 3 plane MIP instructions were produced and reviewed fo r this report. The axial source images and reconstructed images were reviewed for this report. All CT scans at this location are performed using CT dose reduction for ALARA by means of automated e xposure control. FINDINGS: There is no indication of intracranial stenosis or large vessel occlusion. There is no indication of vasculitis. There is no evidence of aneurysm or other vascular malformation. IMPRESSION: No indication of large vessel occlusion or significant intracranial stenosis. CONTRAST DOSE REPORT: Omnipaque 350 administered intravenously. Signer Name: Vitaliy Hinds MD Signed: 10/18/2019 6:17 PM Workstation Name: [id number]
--- NOTE | 2019-10-18 18:29 | Cat Scan Report ---
CTA neck without and with intravenous contrast material, with multiplanar reconstruction and with thr ee-dimensional reconstructions produced utilizing an independent workstation. CLINICAL HISTORY: Cerebrovascular accident. Right-sided weakness. TECHNIQUE: Following acquisition of a timing bolus 1.25 mm thick contiguous axial scans were obtained from aorti c arch to the skull base during rapid bolus intravenous contrast infusion. In addition to evaluation of axial source images multiplanar reconstructions were produced and reviewed for this report. Three- dimensional reconstructions were produced utilizing an independent workstation. These were also revie wed for this report. FINDINGS: No abnormalities are seen at the origins of the great vessels. Right carotid artery: Right common carotid artery, right carotid bifurcation and cervical segments of the right internal carotid artery are all free from atherosclerotic disease. Left carotid artery: Left common carotid artery has an unremarkable appearance. Mildly calcified athe rosclerotic plaque is seen at the left carotid bifurcation with no associated stenosis. Cervical segm ents of the LICA have a normal appearance. The right vertebral artery is dominant. Left vertebral artery appears to terminate at the level of th e PICA. Right vertebral artery contributes on performed the basilar artery. Basilar artery has an unr emarkable appearance. The basilar artery has an unremarkable appearance. The degree of stenosis, if any, is determined utilizing NASCET like criteria. In this case there is no indication of hemodynamically significant stenosis at the carotid bifurcations or elsewhere. Evaluation of the nonvascular soft tissue structures reveal no abnormality. There is no indication of cervical lymphadenopathy. No abnormalities are seen along the course of the airway. Visualized porti ons of the parotid glands and the submandibular salivary glands have a normal appearance. Thyroid gla nd has a normal appearance. Evaluation of the lung apices reveals no evidence of lung nodule or infil trate. Evaluation of the cervical spine revealed no significant abnormalities. IMPRESSION: 1. No indication of hemodynamically significant stenosis at the carotid bifurcations or elsewhere. Contrast dose report: Omnipaque 350: 60 ml, administered intravenously All CT examinations performed at this facility utilize modulated dose reduction, iterative reconstruc tion or weight-based dosing, as appropriate, to obtain a radiation dose which is as low as can reason ably be achieved. Signer Name: Vitaliy Hinds MD Signed: 10/18/2019 6:24 PM Workstation Name: [id number]
[2019-10-18] MEDS: ALBUTEROL 2.5 MG/3 ML NEBU IH PRN (22:10)
[2019-10-19] MEDS ORDERED: SODIUM CHLORIDE 0.9% 500 ML 500 ML IV ONE (04:39)
[2019-10-19] MEDS ORDERED: DIGOXIN 0.5 MG/2 ML INJ IV ONE ×2 (05:45→05:51)
[2019-10-19] MEDS: FUROSEMIDE 40 MG/4 ML INJ IV SCH (07:16)
[2019-10-19] MEDS ORDERED: AMIODARONE 150 MG in DEXTROSE 5% IN WATER 97 ML IV ONE (08:41)
[2019-10-19] MEDS ORDERED: AMIODARONE 900 MG in DEXTROSE 5% IN WATER 482 ML IV SCH (09:00)
[2019-10-19] MEDS: BUDESONIDE 0.5 MG/2 ML NEBU IH SCH ×2 (09:20→23:50)
[2019-10-19] MEDS: AZITHROMYCIN 500 MG in SODIUM CHLORIDE 0.9% 250ML 250 ML IV SCH (09:23)
[2019-10-19] MEDS: cefTRIAXone/NS 2 GM/100 ML 2 GM/100 ML BAG IV SCH (09:24)
[2019-10-19] MEDS: POTASSIUM CHLORIDE ER 20 MEQ TAB PO SCH (09:25)
[2019-10-19] MEDS: PANTOPRAZOLE 40 MG TAB PO SCH (09:26)
[2019-10-19] MEDS: BENZONATATE 100 MG CAP PO SCH ×3 (09:26→22:55)
[2019-10-19] MEDS: LOSARTAN 50 MG TAB PO SCH (09:27)
[2019-10-19] MEDS ORDERED: DIGOXIN 0.5 MG/2 ML INJ IV SCH (09:45)
[2019-10-19] MEDS: guaiFENesin ER 600 MG TAB PO SCH ×2 (10:18→22:55)
[2019-10-19] MEDS: POLYETHYLENE GLYCOL 3350 17 GM POWDER PO SCH (10:19)
[2019-10-19 12:32] LABS: Chol/HDL Ratio 1.78 %
--- NOTE | 2019-10-19 14:00 | Progress Note ---
Assessment and Plan 89 y/o female, followed by Kranthi with suspected allergies (per her), has never completed PFT's admitted with dyspnea and worsening shortness of breath with exertion now with possible stroke with right sided weakness. 10/19: cOntinue q1 hour neuro checks patient received TPA at 17:17 on yesterday. PT/OT consult. Neurology follow up. Will likely need MRI either later today or tomorrow. Follow up cardiology recs. Remainder is below. 1. Patient was followed by [facility] for years but stopped going as she stated inhalers were prescribed over and over and none of them ever improved. She had a syncopal event trying to do PFT's so these were never finished and she has a history of Mitral Valve Prolapse diagnosed 20+ years ago. at this point I would really suggest cardiology evaluation and possible ischemic work up. 2. Will continue Pulmicort but will stop Brovana 3. Ok with PRN neb therapy 4. No indication for systemic steroids. Subjective Date of service: 10/19/19 Interval history: Patient still with significant weakness of the right. TPA administered sometime last evening. (17:17). Breathing is stable. Remainder is negative. Objective Vital Signs - 12hr 10/19/19 10/19/19 10/19/19 02:00 02:11 02:21 Temperature Pulse Rate 84 78 79 Pulse Rate [ Left Arm] Respiratory 14 17 24 Rate Respiratory Rate [Left Arm] Blood Pressure 129/58 129/58 119/63 Blood Pressure [Left Arm] O2 Sat by Pulse 96 97 98 Oximetry O2 Sat by Pulse Oximetry [Left Arm] 10/19/19 10/19/19 10/19/19 02:31 02:41 02:51 Temperature Pulse Rate 86 80 77 Pulse Rate [ Left Arm] Respiratory 19 19 20 Rate Respiratory Rate [Left Arm] Blood Pressure 143/53 143/53 148/62 Blood Pressure [Left Arm] O2 Sat by Pulse 98 97 97 Oximetry O2 Sat by Pulse Oximetry [Left Arm] 10/19/19 10/19/19 10/19/19 02:55 03:01 03:11 Temperature Pulse Rate 90 78 Pulse Rate [ 143 H Left Arm] Respiratory 22 18 Rate Respiratory 15 Rate [Left Arm] Blood Pressure 146/58 146/58 Blood Pressure 118/70 [Left Arm] O2 Sat by Pulse 98 94 Oximetry O2 Sat by Pulse 100 Oximetry [Left Arm] 10/19/19 10/19/19 10/19/19 03:21 03:23 03:30 Temperature 98.5 F Pulse Rate 81 78 Pulse Rate [ Left Arm] Respiratory 13 15 Rate Respiratory Rate [Left Arm] Blood Pressure 142/62 131/82 Blood Pressure [Left Arm] O2 Sat by Pulse 98 95 Oximetry O2 Sat by Pulse Oximetry [Left Arm] 10/19/19 10/19/19 10/19/19 03:41 03:51 03:55 Temperature Pulse Rate 71 74 Pulse Rate [ 125 H Left Arm] Respiratory 19 17 Rate Respiratory 20 Rate [Left Arm] Blood Pressure 131/82 122/92 Blood Pressure 118/81 [Left Arm] O2 Sat by Pulse 94 93 Oximetry O2 Sat by Pulse 100 Oximetry [Left Arm] 10/19/19 10/19/19 10/19/19 04:00 04:11 04:21 Temperature Pulse Rate 133 H 140 H 126 H Pulse Rate [ 145 H Left Arm] Respiratory 19 18 20 Rate Respiratory 18 Rate [Left Arm] Blood Pressure 119/66 119/66 117/64 Blood Pressure 116/85 [Left Arm] O2 Sat by Pulse 96 97 97 Oximetry O2 Sat by Pulse 100 Oximetry [Left Arm] 10/19/19 10/19/19 10/19/19 04:31 04:41 04:51 Temperature Pulse Rate 143 H 147 H 139 H Pulse Rate [ Left Arm] Respiratory 28 H 16 13 Rate Respiratory Rate [Left Arm] Blood Pressure 99/73 117/72 99/73 Blood Pressure [Left Arm] O2 Sat by Pulse 97 98 96 Oximetry O2 Sat by Pulse Oximetry [Left Arm] 10/19/19 10/19/19 10/19/19 05:00 05:01 05:10 Temperature Pulse Rate 154 H 149 H Pulse Rate [ 152 H Left Arm] Respiratory 18 15 Rate Respiratory 16 Rate [Left Arm] Blood Pressure 118/81 123/87 Blood Pressure 123/87 [Left Arm] O2 Sat by Pulse 96 97 Oximetry O2 Sat by Pulse 100 Oximetry [Left Arm] 10/19/19 10/19/19 10/19/19 05:21 05:31 05:41 Temperature Pulse Rate 140 H 142 H 143 H Pulse Rate [ Left Arm] Respiratory 15 19 18 Rate Respiratory Rate [Left Arm] Blood Pressure 116/86 116/86 129/87 Blood Pressure [Left Arm] O2 Sat by Pulse 99 98 98 Oximetry O2 Sat by Pulse Oximetry [Left Arm] 10/19/19 10/19/19 10/19/19 05:51 06:00 06:01 Temperature Pulse Rate 146 H 160 H Pulse Rate [ 142 H Left Arm] Respiratory 25 H 15 Rate Respiratory 16 Rate [Left Arm] Blood Pressure 115/90 106/85 Blood Pressure 129/72 [Left Arm] O2 Sat by Pulse 99 97 Oximetry O2 Sat by Pulse 99 Oximetry [Left Arm] 10/19/19 10/19/19 10/19/19 06:05 06:11 06:21 Temperature Pulse Rate 162 H 142 H 119 H Pulse Rate [ Left Arm] Respiratory 14 18 Rate Respiratory Rate [Left Arm] Blood Pressure 127/80 106/85 121/82 Blood Pressure [Left Arm] O2 Sat by Pulse 97 98 Oximetry O2 Sat by Pulse Oximetry [Left Arm] 10/19/19 10/19/19 10/19/19 06:31 06:41 06:51 Temperature Pulse Rate 138 H 116 H 129 H Pulse Rate [ Left Arm] Respiratory 17 21 19 Rate Respiratory Rate [Left Arm] Blood Pressure 133/79 133/79 129/72 Blood Pressure [Left Arm] O2 Sat by Pulse 98 95 95 Oximetry O2 Sat by Pulse Oximetry [Left Arm] 10/19/19 10/19/19 10/19/19 07:00 07:01 07:11 Temperature Pulse Rate 125 H 125 H Pulse Rate [ 142 H Left Arm] Respiratory 17 20 Rate Respiratory 16 Rate [Left Arm] Blood Pressure 129/72 156/93 Blood Pressure 129/72 [Left Arm] O2 Sat by Pulse 97 94 Oximetry O2 Sat by Pulse 99 Oximetry [Left Arm] 10/19/19 10/19/19 10/19/19 07:21 07:30 07:41 Temperature Pulse Rate 150 H 145 H 148 H Pulse Rate [ Left Arm] Respiratory 18 24 20 Rate Respiratory Rate [Left Arm] Blood Pressure 139/104 134/101 134/101 Blood Pressure [Left Arm] O2 Sat by Pulse 96 95 95 Oximetry O2 Sat by Pulse Oximetry [Left Arm] 10/19/19 10/19/19 10/19/19 07:51 08:00 08:11 Temperature 98.6 F Pulse Rate 140 H 138 H 132 H Pulse Rate [ 131 H Left Arm] Respiratory 18 21 16 Rate Respiratory 18 Rate [Left Arm] Blood Pressure 162/93 149/104 149/104 Blood Pressure 162/93 [Left Arm] O2 Sat by Pulse 96 96 94 Oximetry O2 Sat by Pulse 98 Oximetry [Left Arm] 10/19/19 10/19/19 10/19/19 08:21 08:31 08:41 Temperature Pulse Rate 149 H 151 H 142 H Pulse Rate [ Left Arm] Respiratory 17 9 L 18 Rate Respiratory Rate [Left Arm] Blood Pressure 151/76 151/76 151/76 Blood Pressure [Left Arm] O2 Sat by Pulse 98 97 98 Oximetry O2 Sat by Pulse Oximetry [Left Arm] 10/19/19 10/19/19 10/19/19 08:51 09:00 09:01 Temperature Pulse Rate 149 H 138 H Pulse Rate [ 122 H Left Arm] Respiratory 25 H 12 Rate Respiratory 25 H Rate [Left Arm] Blood Pressure 151/76 152/106 Blood Pressure 151/76 [Left Arm] O2 Sat by Pulse 98 97 Oximetry O2 Sat by Pulse 96 Oximetry [Left Arm] 10/19/19 10/19/19 10/19/19 09:11 09:19 09:21 Temperature Pulse Rate 135 H 133 H Pulse Rate [ Left Arm] Respiratory 17 14 Rate Respiratory Rate [Left Arm] Blood Pressure 152/106 152/106 Blood Pressure [Left Arm] O2 Sat by Pulse 98 98 97 Oximetry O2 Sat by Pulse Oximetry [Left Arm] 10/19/19 10/19/19 10/19/19 09:27 09:31 09:41 Temperature Pulse Rate 118 H 136 H 112 H Pulse Rate [ Left Arm] Respiratory 18 25 H Rate Respiratory Rate [Left Arm] Blood Pressure 152/106 152/106 157/78 Blood Pressure [Left Arm] O2 Sat by Pulse 98 97 Oximetry O2 Sat by Pulse Oximetry [Left Arm] 10/19/19 10/19/19 10/19/19 09:51 10:00 10:11 Temperature Pulse Rate 129 H 97 H 99 H Pulse Rate [ 136 H Left Arm] Respiratory 23 22 18 Rate Respiratory 21 Rate [Left Arm] Blood Pressure 157/78 159/88 159/88 Blood Pressure 149/104 [Left Arm] O2 Sat by Pulse 97 97 98 Oximetry O2 Sat by Pulse 95 Oximetry [Left Arm] 10/19/19 10/19/19 10/19/19 10:21 10:31 10:41 Temperature Pulse Rate 99 H 85 98 H Pulse Rate [ Left Arm] Respiratory 26 H 17 14 Rate Respiratory Rate [Left Arm] Blood Pressure 159/88 159/88 159/88 Blood Pressure [Left Arm] O2 Sat by Pulse 95 96 96 Oximetry O2 Sat by Pulse Oximetry [Left Arm] 10/19/19 10/19/19 10/19/19 10:51 11:00 11:01 Temperature Pulse Rate 108 H 93 H Pulse Rate [ 109 H Left Arm] Respiratory 19 23 Rate Respiratory 20 Rate [Left Arm] Blood Pressure 159/88 156/65 Blood Pressure 159/88 [Left Arm] O2 Sat by Pulse 92 95 Oximetry O2 Sat by Pulse 97 Oximetry [Left Arm] 10/19/19 10/19/19 10/19/19 11:11 11:21 11:31 Temperature Pulse Rate 87 100 H 93 H Pulse Rate [ Left Arm] Respiratory 22 13 16 Rate Respiratory Rate [Left Arm] Blood Pressure 156/65 156/65 156/65 Blood Pressure [Left Arm] O2 Sat by Pulse 87 96 95 Oximetry O2 Sat by Pulse Oximetry [Left Arm] 10/19/19 10/19/19 10/19/19 11:41 11:51 12:00 Temperature 98.1 F Pulse Rate 96 H 96 H Pulse Rate [ 91 H Left Arm] Respiratory 16 20 Rate Respiratory 19 Rate [Left Arm] Blood Pressure 156/65 156/65 Blood Pressure 156/65 [Left Arm] O2 Sat by Pulse 95 95 Oximetry O2 Sat by Pulse 95 Oximetry [Left Arm] 10/19/19 10/19/19 10/19/19 12:01 12:11 12:21 Temperature Pulse Rate 82 87 94 H Pulse Rate [ Left Arm] Respiratory 15 10 L 15 Rate Respiratory Rate [Left Arm] Blood Pressure 118/63 118/63 118/63 Blood Pressure [Left Arm] O2 Sat by Pulse 96 96 96 Oximetry O2 Sat by Pulse Oximetry [Left Arm] 10/19/19 10/19/19 10/19/19 12:31 12:41 12:51 Temperature Pulse Rate 85 94 H 85 Pulse Rate [ Left Arm] Respiratory 19 19 23 Rate Respiratory Rate [Left Arm] Blood Pressure 118/63 118/63 118/63 Blood Pressure [Left Arm] O2 Sat by Pulse 94 91 92 Oximetry O2 Sat by Pulse Oximetry [Left Arm] 10/19/19 13:00 Temperature Pulse Rate 98 H Pulse Rate [ Left Arm] Respiratory 20 Rate Respiratory Rate [Left Arm] Blood Pressure 158/63 Blood Pressure [Left Arm] O2 Sat by Pulse 93 Oximetry O2 Sat by Pulse Oximetry [Left Arm] Constitutional: no acute distress, alert Eyes: non-icteric ENT: oropharynx moist Neck: supple, no JVD Effort: normal Ascultation: Bilateral: diminished breath sounds Percussion: Bilateral: not dull Tactile fremitus: Bilateral: normal Cardiovascular: regular rate and rhythm Gastrointestinal: normoactive bowel sounds, soft Extremities: edema CBC and BMP: 10/17/19 05:05 10/17/19 05:10 ABG, PT/INR, D-dimer: PT/INR, D-dimer PT 14.6 Sec. (12.2-14.9) 10/15/19 13:37 INR 1.15 (0.87-1.13) H 10/15/19 13:37 Abnormal lab findings: Abnormal Labs 10/15/19 10/15/19 10/15/19 13:37 13:37 13:37 RBC 3.61 L MCH 33 H Lymph % (Auto) [place] % (Auto) 11.1 H Lymph # [place] # 0.9 H Seg Neutrophils % 70.5 H INR 1.15 H Sodium 131 L Chloride 94.9 L Carbon Dioxide 19 L BUN 21 H Glucose 106 H Lactic Acid NT-Pro-B Natriuret Pep Total Protein Albumin 3.6 L HDL Cholesterol Urine WBC (Auto) 10/15/19 10/15/19 10/15/19 13:37 14:45 18:15 RBC MCH Lymph % (Auto) [place] % (Auto) Lymph # [place] # Seg Neutrophils % INR Sodium Chloride Carbon Dioxide BUN Glucose Lactic Acid 2.30 H* NT-Pro-B Natriuret Pep 69143 H Total Protein Albumin HDL Cholesterol Urine WBC (Auto) 40.0 H 10/15/19 10/15/19 10/16/19 19:31 21:14 05:10 RBC 3.63 L MCH 33 H Lymph % (Auto) 8.8 L [place] % (Auto) Lymph # 0.5 L [place] # Seg Neutrophils % 86.6 H INR Sodium Chloride Carbon Dioxide BUN Glucose Lactic Acid 3.10 H* 3.10 H* NT-Pro-B Natriuret Pep Total Protein Albumin HDL Cholesterol Urine WBC (Auto) 10/17/19 10/17/19 10/19/19 05:05 05:10 11:22 RBC MCH 33 H Lymph % (Auto) [place] % (Auto) 12.2 H Lymph # [place] # 1.2 H Seg Neutrophils % INR Sodium 136 L Chloride 96.9 L Carbon Dioxide 21 L BUN 22 H Glucose Lactic Acid NT-Pro-B Natriuret Pep Total Protein 5.6 L Albumin 3.6 L HDL Cholesterol 75 H Urine WBC (Auto)
--- NOTE | 2019-10-19 14:21 | Progress Note ---
Assessment and Plan Will initiate amiodarone bolus and drip. She has no known history of atrial fibrillation. [id number] score is 7, but will hold on anticoagulation pending clearance from neurology. Continue current cardiac management for now. The patient has been seen in conjunction with Dr. Oviedo, who agrees with the assessment and plan. - Patient Problems (1) Atrial fibrillation with rapid ventricular response Current Visit: Yes Status: Acute (2) Pneumonia Current Visit: Yes Status: Acute (3) Acute HFrEF (heart failure with reduced ejection fraction) Current Visit: Yes Status: Acute (4) Cardiomyopathy Current Visit: Yes Status: Acute Qualifiers: Cardiomyopathy type: other Qualified Code(s): I42.8 - Other cardiomyopathies (5) Hypertension Current Visit: Yes Status: Chronic (6) LBBB (left bundle branch block) Current Visit: Yes Status: Chronic (7) GERD (gastroesophageal reflux disease) Current Visit: Yes Status: Chronic Subjective Date of service: 10/19/19 Interval history: Called by RN yesterday evening d/t afib with RVR. She became hypotensive, so metoprolol was contraindicated. Treatment with digoxin attempted, but has been unsuccessful. Patient also experienced a CVA in the late afternoon and received tPA infusion. She is currently lying in bed in [facility]. She is able to move her right side. She remains in afib with RVR on telemetry. Objective Last Vital Signs Temp 98.1 F 10/19/19 12:00 Pulse 98 H 10/19/19 13:00 Resp 20 10/19/19 13:00 BP 158/63 10/19/19 13:00 Pulse Ox 93 10/19/19 13:00 - Physical Examination General: No Apparent Distress HEENT: Positive: PERRL Neck: Positive: neck supple Cardiac: Positive: irregularly irregular Lungs: Positive: Normal Exam Neuro: Positive: Other (right-sided weakness and decreased movement ) Abdomen: Positive: Unremarkable /Rectal: Other (deferred) Skin: Positive: Bruising (upper extremities - diffuse) Musculoskeletal: Decreased Range of Motion (right side) Extremities: Present: normal - Labs and Meds Lipids 10/19/19 Range/Units 11:22 Triglycerides 84 (2-149) mg/dL Cholesterol 134 (50-199) mg/dL HDL Cholesterol 75 H (40-59) mg/dL Cholesterol/HDL Ratio 1.78 % - Imaging and Cardiology Echo: report reviewed (12/2018: EF 50 to 55%, moderate AR, moderate MR, moderate pulm htn) - Telemetry EKG Rhythm: Atrial Fibrillation AV and intraventricular conduction: left bundle branch block
--- NOTE | 2019-10-19 15:05 | Progress Note ---
Assessment and Plan Assessment and plan: Patient is a 89 yo woman with a history of hypertension and GERD who presented to [facility] ED with sob and cough. She was seen by her analytical clerk (Dr. Davenport) on Sunday where she was diagnosed with pneumonia and started on antibiotics and not responding to outpatient treatment. After the stress test on Sunday10/18/2019, Patient c/o acute episode of loss of movement of right leg and arm and right eye blindness. I called [employer] and notified [employer]. TELENeurologist Dr. Miki Odell responded. Patient had CT head without contrast that did not show any acute changes. Then she had CTA head and neck followed by 500ml Normal saline. She will be sent to ICU and tPA was given. * relative normal CBC * Acidosis: lactosis and metabolic * proBNP [id number] * pCXR Impression: Right hilar fullness and right basilar interstitial pneumonia. Recommend follow-up to resolution. Acute Cerebral Infarct s/p tPA: statin, MRI brain, Neurology Right Aspiration Pneumonia: treat with dual coverage broad spectrum IV abx JOCELYN, vasomotor nephropathy cr 1.1, est GFR 47 (last Cr 0.7 in 2015): treated with IVF, plateau Accelerated hypertension: low salt diet, prn hydralazine IV UTI: urine culture and treat with abx No SIRS or sepsis found so far Chest pains, believed to be from pneumonia, d/w Pulmonology who recommended cardiology evaluation and possible ischemic work up: stress test and Cardiology consulted Constipation: miralax Hyponatremia, hypovolemia, dehydration: IVF, monitor bmp Constipation: tried miralax, give Dulcolax pr, we did discuss colonoscopy and gave her appropriate recommendation DVT ppx Disposition: continue inpatient care History Interval history: Patient was seen and examined. Follow-up on current diagnosis of PNA. No overnight events reported to me. Patient denies any chest pain, shortness breath, nausea/vomiting or severe headaches. Imaging, nursing note, chart, labs and old chart reviewed. Discussed with patient. Hospitalist Physical - Physical exam Narrative exam: Gen: WDWN, NAD, Awake, Alert, Orientated HEENT: NCAT, EOMI, PERRL, OP Clear Neck: supple, no adenopathy, no thyromegaly, no JVD CVS/Heart: RRR, normal S1S2, pulses present bilaterally Chest/Lungs: tachypneic, right coarse BS, Symmetrical chest expansion, good air entry bilaterally GI/Abdomen: soft, NTND, good bowel sounds, no guarding or rebound /Bladder: no suprapubic tenderness, no CVA or paraspinal tenderness Extermity/Skin: no c/c/e, no obvious rash MSK: FROM x 4 Neuro: CN 2-12 grossly intact, right hand sensory deficit, right pronator drift Psych: calm - Constitutional Vitals: Temp Pulse Resp BP Pulse Ox 98.1 F 98 H 20 158/63 93 10/19/19 12:00 10/19/19 13:00 10/19/19 13:00 10/19/19 13:00 10/19/19 13:00 General appearance: Present: no acute distress Results - Labs CBC & Chem 7: 10/17/19 05:05 10/17/19 05:10 Labs: Laboratory Last Values WBC 9.6 K/mm3 (4.5-11.0) 10/17/19 05:05 RBC 3.71 M/mm3 (3.65-5.03) 10/17/19 05:05 Hgb 12.1 gm/dl (10.1-14.3) 10/17/19 05:05 Hct 35.2 % (30.3-42.9) 10/17/19 05:05 MCV 95 fl (79-97) 10/17/19 05:05 MCH 33 pg (28-32) H 10/17/19 05:05 MCHC 34 % (30-34) 10/17/19 05:05 RDW 14.5 % (13.2-15.2) 10/17/19 05:05 Plt Count 202 K/mm3 (140-440) 10/17/19 05:05 Lymph % (Auto) 24.2 % (13.4-35.0) 10/17/19 05:05 [place] % (Auto) 12.2 % (0.0-7.3) H 10/17/19 05:05 Eos % (Auto) 1.1 % (0.0-4.3) 10/17/19 05:05 Baso % (Auto) 0.4 % (0.0-1.8) 10/17/19 05:05 Lymph # 2.3 K/mm3 (1.2-5.4) 10/17/19 05:05 [place] # 1.2 K/mm3 (0.0-0.8) H 10/17/19 05:05 Eos # 0.1 K/mm3 (0.0-0.4) 10/17/19 05:05 Baso # 0.0 K/mm3 (0.0-0.1) 10/17/19 05:05 Seg Neutrophils % 62.1 % (40.0-70.0) 10/17/19 05:05 Seg Neutrophils # 6.0 K/mm3 (1.8-7.7) 10/17/19 05:05 PT 14.6 Sec. (12.2-14.9) 10/15/19 13:37 INR 1.15 (0.87-1.13) H 10/15/19 13:37 APTT 28.0 Sec. (24.2-36.6) 10/15/19 13:37 Sodium 136 mmol/L (137-145) L 10/17/19 05:10 Potassium 3.9 mmol/L (3.6-5.0) 10/17/19 05:10 Chloride 96.9 mmol/L (98-107) L 10/17/19 05:10 Carbon Dioxide 21 mmol/L (22-30) L 10/17/19 05:10 Anion Gap 22 mmol/L 10/17/19 05:10 BUN 22 mg/dL (7-17) H 10/17/19 05:10 Creatinine 1.1 mg/dL (0.7-1.2) 10/17/19 05:10 Estimated GFR 47 ml/min 10/17/19 05:10 BUN/Creatinine Ratio 20 % 10/17/19 05:10 Glucose 96 mg/dL (65-100) 10/17/19 05:10 POC Glucose 80 (70-105) 10/18/19 17:26 Lactic Acid 1.50 mmol/L (0.7-2.0) 10/15/19 23:30 Calcium 8.8 mg/dL (8.4-10.2) 10/17/19 05:10 Magnesium 1.80 mg/dL (1.7-2.3) 10/15/19 13:37 Total Bilirubin 0.40 mg/dL (0.1-1.2) 10/17/19 05:10 AST 32 units/L (5-40) 10/17/19 05:10 ALT 39 units/L (7-56) 10/17/19 05:10 Alkaline Phosphatase 91 units/L (35-129) 10/17/19 05:10 Troponin T 0.017 ng/mL (0.00-0.029) 10/15/19 19:31 NT-Pro-B Natriuret Pep 91643 pg/mL (0-900) H 10/15/19 13:37 Total Protein 5.6 g/dL (6.3-8.2) L 10/17/19 05:10 Albumin 3.6 g/dL (3.9-5) L 10/17/19 05:10 Albumin/Globulin Ratio 1.8 % 10/17/19 05:10 Triglycerides 84 mg/dL (2-149) 10/19/19 11:22 Cholesterol 134 mg/dL (50-199) 10/19/19 11:22 LDL Cholesterol Direct 63 mg/dL (50-130) 10/19/19 11:22 HDL Cholesterol 75 mg/dL (40-59) H 10/19/19 11:22 Cholesterol/HDL Ratio 1.78 % 10/19/19 11:22 Urine Color Yellow (Yellow) 10/15/19 18:15 Urine Turbidity Slightly-cloudy (Clear) 10/15/19 18:15 Urine pH 5.0 (5.0-7.0) 10/15/19 18:15 Ur Specific [place] 1.019 (1.003-1.030) 10/15/19 18:15 Urine Protein 100 mg/dl mg/dL (Negative) 10/15/19 18:15 Urine Glucose (UA) Neg mg/dL (Negative) 10/15/19 18:15 Urine Ketones Neg mg/dL (Negative) 10/15/19 18:15 Urine Blood Sm (Negative) 10/15/19 18:15 Urine Nitrite Neg (Negative) 10/15/19 18:15 Urine Bilirubin Neg (Negative) 10/15/19 18:15 Urine Urobilinogen < 2.0 mg/dL (<2.0) 10/15/19 18:15 Ur Leukocyte Esterase Mod (Negative) 10/15/19 18:15 Urine WBC (Auto) 40.0 /HPF (0.0-6.0) H 10/15/19 18:15 Urine RBC (Auto) 3.0 /HPF (0.0-6.0) 10/15/19 18:15 U Epithel Cells (Auto) 8.0 /HPF (0-13.0) 10/15/19 18:15 Urine Mucus Few /HPF 10/15/19 18:15 Active Medications - Current Medications Current Medications: Generic Name Dose Route Start Last Admin Trade Name Freq PRN Reason Stop Dose Admin Albuterol 2.5 mg 10/17/19 08:30 10/18/19 22:10 Proventil IH 2.5 mg Q4HRT PRN Administration Shortness Of Breath Atorvastatin Calcium 40 mg 10/18/19 23:30 Lipitor PO QHS REY Benzonatate 100 mg 10/17/19 20:00 10/19/19 14:19 Tessalon Perles PO 100 mg TID REY Administration Budesonide 0.5 mg 10/17/19 20:00 10/19/19 09:20 Pulmicort IH Not Given Q12HRT REY Furosemide 40 mg 10/16/19 06:00 10/19/19 07:16 Lasix IV 40 mg DAILY@0600 REY Administration Guaifenesin 600 mg 10/15/19 22:00 10/19/19 10:18 Mucinex Er PO 600 mg BID REY Administration Ceftriaxone Sodium 2 gm in 100 mls @ 200 mls/hr 10/15/19 15:00 10/19/19 09:24 Rocephin/Ns 2 Gm/100 Ml IV 200 mls/hr Q24HR REY Administration Protocol Azithromycin 500 mg/ Sodium 250 mls @ 250 mls/hr 10/15/19 15:00 10/19/19 09:23 Chloride IV 250 mls/hr Q24HR REY Administration Protocol Amiodarone HCl 900 mg/ 500 mls @ 33.333 mls/hr 10/19/19 09:00 10/19/19 09:25 Dextrose IV 1 mg/min DIRECT REY 33.333 mls/hr Administration Protocol 1 MG/MIN Losartan Potassium 50 mg 10/16/19 10:00 10/19/19 09:27 Cozaar PO 50 mg QDAY REY Administration Metoprolol Tartrate 25 mg 10/19/19 05:00 Metoprolol PO BID REY Pantoprazole Sodium 40 mg 10/16/19 10:00 10/19/19 09:26 Protonix PO 40 mg DAILY REY Administration Polyethylene Glycol 17 gm 10/16/19 13:00 10/19/19 10:19 Miralax 3350 PO Not Given QDAY REY Potassium Chloride 40 meq 10/16/19 10:00 10/19/19 09:25 K-Dur PO 40 meq QDAY REY Administration
[2019-10-19] MEDS ORDERED: ACETAMINOPHEN 325 MG TAB PO PRN (15:06)
[2019-10-19] MEDS ORDERED: ONDANSETRON 4 MG/2 ML INJ IV PRN (15:06)
[2019-10-19] MEDS: METOPROLOL TARTRATE 25 MG TAB PO SCH (22:54)
[2019-10-20] MEDS: BENZONATATE 100 MG CAP PO SCH ×3 (07:00→21:00)
[2019-10-20] MEDS: FUROSEMIDE 40 MG/4 ML INJ IV SCH (07:00)
[2019-10-20] MEDS: ALBUTEROL 2.5 MG/3 ML NEBU IH PRN (07:20)
[2019-10-20] MEDS: BUDESONIDE 0.5 MG/2 ML NEBU IH SCH ×2 (07:20→20:08)
[2019-10-20] MEDS: METOPROLOL TARTRATE 25 MG TAB PO SCH ×3 (07:40→21:00)
[2019-10-20] MEDS: cefTRIAXone/NS 2 GM/100 ML 2 GM/100 ML BAG IV SCH (10:13)
[2019-10-20] MEDS: guaiFENesin ER 600 MG TAB PO SCH ×2 (10:14→21:01)
[2019-10-20] MEDS: PANTOPRAZOLE 40 MG TAB PO SCH (10:14)
[2019-10-20] MEDS: LOSARTAN 50 MG TAB PO SCH (10:14)
[2019-10-20] MEDS: AZITHROMYCIN 500 MG in SODIUM CHLORIDE 0.9% 250ML 250 ML IV SCH (10:15)
[2019-10-20] MEDS: POTASSIUM CHLORIDE 20 MEQ PACKET PO SCH (10:15)
[2019-10-20] MEDS: POLYETHYLENE GLYCOL 3350 17 GM POWDER PO SCH (10:15)
--- NOTE | 2019-10-20 11:36 | Vascular Lab Report ---
"DUPLEX DOPPLER ULTRASOUND CAROTID, BILATERAL INDICATION: CVA. FINDINGS: RIGHT CAROTID: No significant atherosclerotic plaque. Right ICA peak systolic velocity: 66 cm/sec. Right Vertebral Artery: Antegrade flow. LEFT CAROTID: No significant atherosclerotic plaque. Left ICA peak systolic velocity: 85 cm/sec. Left Vertebral Artery: Antegrade flow. IMPRESSION: 1. Right Internal Carotid Artery: Less than 50% diameter stenosis. 2. Left Internal Carotid Artery: Less than 50% diameter stenosis. Velocity criteria are extrapolated from diameter data as defined by the Society of Radiologists in Ul trasound Consensus Conference, Radiology 2003; 229;340-346. Degree of Stenosis (%) || ICA PSV (cm/sec) || Plaque estimate (%) || ICA/CCA PSV Ratio Normal <125 None <2.0 <50 <125 <50 <2.0 50-69 125-230 50 2.0-4.0 70 but less than 100 >230 50 >4.0 Near occlusion High, low, or none visible variable Total occlusion None visible; no lumen N/A Signer Name: Venu Prescott MD Signed: 10/20/2019 11:32 AM Workstation Name: [id number]
--- NOTE | 2019-10-20 11:48 | Progress Note ---
Assessment and Plan 89 y/o female, followed by Kranthi with suspected allergies (per her), has never completed PFT's admitted with dyspnea and worsening shortness of breath with exertion now with possible stroke with right sided weakness. 10/20: Stable for transfer to floor. Will send back to [facility] with remote tele. Follow up cardiology recs. 10/19: cOntinue q1 hour neuro checks patient received TPA at 17:17 on yesterday. PT/OT consult. Neurology follow up. Will likely need MRI either later today or tomorrow. Follow up cardiology recs. Remainder is below. 1. Patient was followed by [facility] for years but stopped going as she stated inhalers were prescribed over and over and none of them ever improved. She had a syncopal event trying to do PFT's so these were never finished and she has a history of Mitral Valve Prolapse diagnosed 20+ years ago. at this point I would really suggest cardiology evaluation and possible ischemic work up. 2. Will continue Pulmicort but will stop Brovana 3. Ok with PRN neb therapy 4. No indication for systemic steroids. Subjective Date of service: 10/20/19 Interval history: 24 hour window post TPA is up. No bleeding. Awaitng further neuro recs. Needs ASA... Objective Vital Signs - 12hr 10/19/19 10/19/19 10/20/19 23:51 23:52 00:00 Temperature Pulse Rate 81 79 Pulse Rate [ 90 Anterior Bilateral Throughout] Pulse Rate [ 57 L From Monitor] Respiratory 18 19 Rate Respiratory 14 Rate [Anterior Bilateral Throughout] Blood Pressure 147/128 153/64 O2 Sat by Pulse 95 97 Oximetry 10/20/19 10/20/19 10/20/19 00:11 00:21 00:31 Temperature Pulse Rate 77 50 L 50 L Pulse Rate [ Anterior Bilateral Throughout] Pulse Rate [ From Monitor] Respiratory 20 20 18 Rate Respiratory Rate [Anterior Bilateral Throughout] Blood Pressure 153/64 153/64 153/64 O2 Sat by Pulse 90 91 96 Oximetry 10/20/19 10/20/19 10/20/19 00:41 00:51 01:01 Temperature Pulse Rate 50 L 50 L 48 L Pulse Rate [ Anterior Bilateral Throughout] Pulse Rate [ From Monitor] Respiratory 20 22 22 Rate Respiratory Rate [Anterior Bilateral Throughout] Blood Pressure 153/64 153/64 140/44 O2 Sat by Pulse 97 88 97 Oximetry 10/20/19 10/20/19 10/20/19 01:11 01:21 01:31 Temperature Pulse Rate 50 L 49 L 48 L Pulse Rate [ Anterior Bilateral Throughout] Pulse Rate [ From Monitor] Respiratory 21 20 20 Rate Respiratory Rate [Anterior Bilateral Throughout] Blood Pressure 140/44 140/44 140/44 O2 Sat by Pulse 89 95 97 Oximetry 10/20/19 10/20/19 10/20/19 01:41 01:51 02:00 Temperature Pulse Rate 49 L 49 L 51 L Pulse Rate [ Anterior Bilateral Throughout] Pulse Rate [ From Monitor] Respiratory 19 21 18 Rate Respiratory Rate [Anterior Bilateral Throughout] Blood Pressure 140/44 140/44 146/53 O2 Sat by Pulse 95 96 97 Oximetry 10/20/19 10/20/19 10/20/19 02:11 02:21 02:31 Temperature Pulse Rate 50 L 50 L 49 L Pulse Rate [ Anterior Bilateral Throughout] Pulse Rate [ From Monitor] Respiratory 20 18 19 Rate Respiratory Rate [Anterior Bilateral Throughout] Blood Pressure 140/44 140/44 140/44 O2 Sat by Pulse 94 96 95 Oximetry 10/20/19 10/20/19 10/20/19 02:41 02:51 03:00 Temperature Pulse Rate 51 L 49 L 49 L Pulse Rate [ Anterior Bilateral Throughout] Pulse Rate [ From Monitor] Respiratory 19 Rate Respiratory Rate [Anterior Bilateral Throughout] Blood Pressure 140/44 140/44 144/50 O2 Sat by Pulse 95 94 95 Oximetry 10/20/19 10/20/19 10/20/19 03:11 03:21 03:22 Temperature 97.5 F L Pulse Rate 50 L 57 L Pulse Rate [ Anterior Bilateral Throughout] Pulse Rate [ From Monitor] Respiratory 18 13 Rate Respiratory Rate [Anterior Bilateral Throughout] Blood Pressure 144/50 144/50 O2 Sat by Pulse 95 94 Oximetry 10/20/19 10/20/19 10/20/19 03:31 03:41 03:51 Temperature Pulse Rate 53 L 51 L 52 L Pulse Rate [ Anterior Bilateral Throughout] Pulse Rate [ From Monitor] Respiratory 18 23 Rate Respiratory Rate [Anterior Bilateral Throughout] Blood Pressure 144/50 144/50 144/50 O2 Sat by Pulse 96 95 95 Oximetry 10/20/19 10/20/19 10/20/19 04:00 04:11 04:21 Temperature Pulse Rate 53 L 53 L 54 L Pulse Rate [ Anterior Bilateral Throughout] Pulse Rate [ 54 L From Monitor] Respiratory 21 20 16 Rate Respiratory Rate [Anterior Bilateral Throughout] Blood Pressure 155/55 155/55 155/55 O2 Sat by Pulse 95 95 96 Oximetry 10/20/19 10/20/19 10/20/19 04:31 04:41 04:51 Temperature Pulse Rate 52 L 52 L 53 L Pulse Rate [ Anterior Bilateral Throughout] Pulse Rate [ From Monitor] Respiratory 23 18 22 Rate Respiratory Rate [Anterior Bilateral Throughout] Blood Pressure 155/55 155/55 155/55 O2 Sat by Pulse 95 95 97 Oximetry 10/20/19 10/20/19 10/20/19 05:00 05:11 05:21 Temperature Pulse Rate 57 L 60 61 Pulse Rate [ Anterior Bilateral Throughout] Pulse Rate [ From Monitor] Respiratory 15 20 23 Rate Respiratory Rate [Anterior Bilateral Throughout] Blood Pressure 162/63 162/63 162/63 O2 Sat by Pulse 96 95 96 Oximetry 10/20/19 10/20/19 10/20/19 05:31 05:41 05:51 Temperature Pulse Rate 58 L 53 L 52 L Pulse Rate [ Anterior Bilateral Throughout] Pulse Rate [ From Monitor] Respiratory 19 18 16 Rate Respiratory Rate [Anterior Bilateral Throughout] Blood Pressure 162/63 162/63 162/63 O2 Sat by Pulse 93 94 96 Oximetry 10/20/19 10/20/19 10/20/19 06:00 06:11 06:21 Temperature Pulse Rate 59 L 56 L 57 L Pulse Rate [ Anterior Bilateral Throughout] Pulse Rate [ From Monitor] Respiratory 21 19 18 Rate Respiratory Rate [Anterior Bilateral Throughout] Blood Pressure 176/67 176/67 176/67 O2 Sat by Pulse 96 97 95 Oximetry 10/20/19 10/20/19 10/20/19 06:31 06:41 06:51 Temperature Pulse Rate 58 L 57 L 55 L Pulse Rate [ Anterior Bilateral Throughout] Pulse Rate [ From Monitor] Respiratory 15 17 17 Rate Respiratory Rate [Anterior Bilateral Throughout] Blood Pressure 176/67 176/67 176/67 O2 Sat by Pulse 96 97 97 Oximetry 10/20/19 10/20/19 10/20/19 07:01 07:11 07:19 Temperature Pulse Rate 57 L 58 L Pulse Rate [ Anterior Bilateral Throughout] Pulse Rate [ From Monitor] Respiratory 18 14 Rate Respiratory Rate [Anterior Bilateral Throughout] Blood Pressure 161/66 161/66 O2 Sat by Pulse 96 97 96 Oximetry 10/20/19 10/20/19 10/20/19 07:20 07:21 07:31 Temperature Pulse Rate 55 L 56 L Pulse Rate [ 54 L Anterior Bilateral Throughout] Pulse Rate [ From Monitor] Respiratory 12 18 Rate Respiratory 14 Rate [Anterior Bilateral Throughout] Blood Pressure 161/66 161/66 O2 Sat by Pulse 97 98 Oximetry 10/20/19 10/20/19 10/20/19 07:41 07:51 08:00 Temperature 96.3 F L Pulse Rate 59 L 59 L 62 Pulse Rate [ Anterior Bilateral Throughout] Pulse Rate [ 56 L From Monitor] Respiratory 19 12 13 Rate Respiratory Rate [Anterior Bilateral Throughout] Blood Pressure 161/66 161/66 167/97 O2 Sat by Pulse 96 93 96 Oximetry 10/20/19 10/20/19 10/20/19 08:11 08:21 08:31 Temperature Pulse Rate 62 66 61 Pulse Rate [ Anterior Bilateral Throughout] Pulse Rate [ From Monitor] Respiratory 20 14 21 Rate Respiratory Rate [Anterior Bilateral Throughout] Blood Pressure 167/97 167/97 167/97 O2 Sat by Pulse 96 92 97 Oximetry 10/20/19 10/20/19 10/20/19 08:41 08:51 09:00 Temperature Pulse Rate 59 L 59 L 61 Pulse Rate [ Anterior Bilateral Throughout] Pulse Rate [ From Monitor] Respiratory 20 12 18 Rate Respiratory Rate [Anterior Bilateral Throughout] Blood Pressure 167/97 167/97 166/57 O2 Sat by Pulse 97 96 97 Oximetry 10/20/19 10/20/19 10/20/19 09:11 09:21 09:31 Temperature Pulse Rate 64 61 63 Pulse Rate [ Anterior Bilateral Throughout] Pulse Rate [ From Monitor] Respiratory 20 21 15 Rate Respiratory Rate [Anterior Bilateral Throughout] Blood Pressure 166/57 166/57 166/57 O2 Sat by Pulse 97 98 95 Oximetry 10/20/19 10/20/19 10/20/19 09:41 09:51 10:00 Temperature Pulse Rate 59 L 58 L 60 Pulse Rate [ Anterior Bilateral Throughout] Pulse Rate [ From Monitor] Respiratory 14 22 14 Rate Respiratory Rate [Anterior Bilateral Throughout] Blood Pressure 166/57 166/57 157/60 O2 Sat by Pulse 97 97 99 Oximetry 10/20/19 10/20/19 10/20/19 10:11 10:14 10:21 Temperature Pulse Rate 60 62 61 Pulse Rate [ Anterior Bilateral Throughout] Pulse Rate [ From Monitor] Respiratory 24 14 Rate Respiratory Rate [Anterior Bilateral Throughout] Blood Pressure 157/60 157/60 157/60 O2 Sat by Pulse 98 96 Oximetry 10/20/19 10/20/19 10/20/19 10:31 10:41 10:51 Temperature Pulse Rate 60 60 61 Pulse Rate [ Anterior Bilateral Throughout] Pulse Rate [ From Monitor] Respiratory 17 19 13 Rate Respiratory Rate [Anterior Bilateral Throughout] Blood Pressure 157/60 157/60 157/60 O2 Sat by Pulse 98 97 97 Oximetry 10/20/19 11:01 Temperature Pulse Rate 59 L Pulse Rate [ Anterior Bilateral Throughout] Pulse Rate [ From Monitor] Respiratory 22 Rate Respiratory Rate [Anterior Bilateral Throughout] Blood Pressure 153/63 O2 Sat by Pulse 98 Oximetry Constitutional: no acute distress, alert Eyes: non-icteric ENT: oropharynx moist Neck: supple, no JVD Effort: normal Ascultation: Bilateral: diminished breath sounds Percussion: Bilateral: not dull Tactile fremitus: Bilateral: normal Cardiovascular: regular rate and rhythm Gastrointestinal: normoactive bowel sounds, soft Extremities: edema CBC and BMP: 10/17/19 05:05 10/17/19 05:10 ABG, PT/INR, D-dimer: PT/INR, D-dimer PT 14.6 Sec. (12.2-14.9) 10/15/19 13:37 INR 1.15 (0.87-1.13) H 10/15/19 13:37 Abnormal lab findings: Abnormal Labs 10/15/19 10/15/19 10/15/19 13:37 13:37 13:37 RBC 3.61 L MCH 33 H Lymph % (Auto) Jack % (Auto) 11.1 H Lymph # Jack # 0.9 H Seg Neutrophils % 70.5 H INR 1.15 H Sodium 131 L Chloride 94.9 L Carbon Dioxide 19 L BUN 21 H Glucose 106 H Lactic Acid NT-Pro-B Natriuret Pep Total Protein Albumin 3.6 L HDL Cholesterol Urine WBC (Auto) 10/15/19 10/15/19 10/15/19 13:37 14:45 18:15 RBC MCH Lymph % (Auto) Jack % (Auto) Lymph # Jack # Seg Neutrophils % INR Sodium Chloride Carbon Dioxide BUN Glucose Lactic Acid 2.30 H* NT-Pro-B Natriuret Pep 91803 H Total Protein Albumin HDL Cholesterol Urine WBC (Auto) 40.0 H 10/15/19 10/15/19 10/16/19 19:31 21:14 05:10 RBC 3.63 L MCH 33 H Lymph % (Auto) 8.8 L Jack % (Auto) Lymph # 0.5 L Jack # Seg Neutrophils % 86.6 H INR Sodium Chloride Carbon Dioxide BUN Glucose Lactic Acid 3.10 H* 3.10 H* NT-Pro-B Natriuret Pep Total Protein Albumin HDL Cholesterol Urine WBC (Auto) 10/17/19 10/17/19 10/19/19 05:05 05:10 11:22 RBC MCH 33 H Lymph % (Auto) Jack % (Auto) 12.2 H Lymph # Jack # 1.2 H Seg Neutrophils % INR Sodium 136 L Chloride 96.9 L Carbon Dioxide 21 L BUN 22 H Glucose Lactic Acid NT-Pro-B Natriuret Pep Total Protein 5.6 L Albumin 3.6 L HDL Cholesterol 75 H Urine WBC (Auto)
--- NOTE | 2019-10-20 12:45 | Progress Note ---
Assessment and Plan Assessment and plan: Patient is a 89 yo woman with a history of hypertension and GERD who presented to [facility] ED with sob and cough. She was seen by her construction supervisor/carpenter (Dr. Davenport) on Sunday where she was diagnosed with pneumonia and started on antibiotics and not responding to outpatient treatment. After the stress test on Sunday10/18/2019, Patient c/o acute episode of loss of movement of right leg and arm with numbness and right eye blindness. I called [facility] and notified [employer] Jurgen. TELENeurologist Dr. Miki Odell responded. Patient had CT head without contrast that did not show any acute changes. Then she had CTA head and neck followed by 500ml Normal saline that was unremarkable. She will be sent to ICU and tPA was given. * relative normal CBC * Acidosis: lactosis and metabolic * proBNP [id number] * pCXR Impression: Right hilar fullness and right basilar interstitial pneumonia. Recommend follow-up to resolution. Acute Cerebral Infarct (inhouse) s/p tPA: statin, MRI brain still pending, she says the right arm numbness still there but the strength and movement and right eyesight did improve after tPA Right Aspiration Pneumonia: treat with dual coverage broad spectrum IV abx JOCELYN, vasomotor nephropathy cr 1.1, est GFR 47 (last Cr 0.7 in 2015): treated with IVF, plateau Accelerated hypertension: low salt diet, prn hydralazine IV UTI: urine culture and treat with abx No SIRS or sepsis found so far Chest pains, believed to be from pneumonia, d/w Pulmonology who recommended cardiology evaluation and possible ischemic work up: stress test and Cardiology consulted Constipation: miralax Hyponatremia, hypovolemia, dehydration: IVF, monitor bmp Constipation: tried miralax, give Dulcolax pr, we did discuss colonoscopy and gave her appropriate recommendation DVT ppx stopped due to tPA Disposition: continue inpatient care,. move from ICU, tomorrow start ASA anticipate discharge in 1-2 days, mri brain still pending History Interval history: Patient was seen and examined. Follow-up on current diagnosis of PNA. No overnight events reported to me. Patient denies any chest pain, shortness breath, nausea/vomiting or severe headaches. Imaging, nursing note, chart, labs and old chart reviewed. Discussed with patient. Hospitalist Physical - Physical exam Narrative exam: Gen: WDWN, NAD, Awake, Alert, Orientated HEENT: NCAT, EOMI, PERRL, OP Clear Neck: supple, no adenopathy, no thyromegaly, no JVD CVS/Heart: RRR, normal S1S2, pulses present bilaterally Chest/Lungs: tachypneic, right coarse BS, Symmetrical chest expansion, good air entry bilaterally GI/Abdomen: soft, NTND, good bowel sounds, no guarding or rebound /Bladder: no suprapubic tenderness, no CVA or paraspinal tenderness Extermity/Skin: no c/c/e, no obvious rash MSK: FROM x 4 Neuro: CN 2-12 grossly intact, right hand sensory deficit, right pronator drift Psych: calm - Constitutional Vitals: Temp Pulse Resp BP Pulse Ox 96.5 F L 53 L 14 153/63 98 10/20/19 11:59 10/20/19 11:51 10/20/19 11:51 10/20/19 11:51 10/20/19 11:51 General appearance: Present: no acute distress Results - Labs CBC & Chem 7: 10/17/19 05:05 10/17/19 05:10 Labs: Laboratory Last Values WBC 9.6 K/mm3 (4.5-11.0) 10/17/19 05:05 RBC 3.71 M/mm3 (3.65-5.03) 10/17/19 05:05 Hgb 12.1 gm/dl (10.1-14.3) 10/17/19 05:05 Hct 35.2 % (30.3-42.9) 10/17/19 05:05 MCV 95 fl (79-97) 10/17/19 05:05 MCH 33 pg (28-32) H 10/17/19 05:05 MCHC 34 % (30-34) 10/17/19 05:05 RDW 14.5 % (13.2-15.2) 10/17/19 05:05 Plt Count 202 K/mm3 (140-440) 10/17/19 05:05 Lymph % (Auto) 24.2 % (13.4-35.0) 10/17/19 05:05 [place] % (Auto) 12.2 % (0.0-7.3) H 10/17/19 05:05 Eos % (Auto) 1.1 % (0.0-4.3) 10/17/19 05:05 Baso % (Auto) 0.4 % (0.0-1.8) 10/17/19 05:05 Lymph # 2.3 K/mm3 (1.2-5.4) 10/17/19 05:05 [place] # 1.2 K/mm3 (0.0-0.8) H 10/17/19 05:05 Eos # 0.1 K/mm3 (0.0-0.4) 10/17/19 05:05 Baso # 0.0 K/mm3 (0.0-0.1) 10/17/19 05:05 Seg Neutrophils % 62.1 % (40.0-70.0) 10/17/19 05:05 Seg Neutrophils # 6.0 K/mm3 (1.8-7.7) 10/17/19 05:05 PT 14.6 Sec. (12.2-14.9) 10/15/19 13:37 INR 1.15 (0.87-1.13) H 10/15/19 13:37 APTT 28.0 Sec. (24.2-36.6) 10/15/19 13:37 Sodium 136 mmol/L (137-145) L 10/17/19 05:10 Potassium 3.9 mmol/L (3.6-5.0) 10/17/19 05:10 Chloride 96.9 mmol/L (98-107) L 10/17/19 05:10 Carbon Dioxide 21 mmol/L (22-30) L 10/17/19 05:10 Anion Gap 22 mmol/L 10/17/19 05:10 BUN 22 mg/dL (7-17) H 10/17/19 05:10 Creatinine 1.1 mg/dL (0.7-1.2) 10/17/19 05:10 Estimated GFR 47 ml/min 10/17/19 05:10 BUN/Creatinine Ratio 20 % 10/17/19 05:10 Glucose 96 mg/dL (65-100) 10/17/19 05:10 POC Glucose 80 (70-105) 10/18/19 17:26 Lactic Acid 1.50 mmol/L (0.7-2.0) 10/15/19 23:30 Calcium 8.8 mg/dL (8.4-10.2) 10/17/19 05:10 Magnesium 1.80 mg/dL (1.7-2.3) 10/15/19 13:37 Total Bilirubin 0.40 mg/dL (0.1-1.2) 10/17/19 05:10 AST 32 units/L (5-40) 10/17/19 05:10 ALT 39 units/L (7-56) 10/17/19 05:10 Alkaline Phosphatase 91 units/L (35-129) 10/17/19 05:10 Troponin T 0.017 ng/mL (0.00-0.029) 10/15/19 19:31 NT-Pro-B Natriuret Pep 85855 pg/mL (0-900) H 10/15/19 13:37 Total Protein 5.6 g/dL (6.3-8.2) L 10/17/19 05:10 Albumin 3.6 g/dL (3.9-5) L 10/17/19 05:10 Albumin/Globulin Ratio 1.8 % 10/17/19 05:10 Triglycerides 84 mg/dL (2-149) 10/19/19 11:22 Cholesterol 134 mg/dL (50-199) 10/19/19 11:22 LDL Cholesterol Direct 63 mg/dL (50-130) 10/19/19 11:22 HDL Cholesterol 75 mg/dL (40-59) H 10/19/19 11:22 Cholesterol/HDL Ratio 1.78 % 10/19/19 11:22 Urine Color Yellow (Yellow) 10/15/19 18:15 Urine Turbidity Slightly-cloudy (Clear) 10/15/19 18:15 Urine pH 5.0 (5.0-7.0) 10/15/19 18:15 Ur Specific Jackpot 1.019 (1.003-1.030) 10/15/19 18:15 Urine Protein 100 mg/dl mg/dL (Negative) 10/15/19 18:15 Urine Glucose (UA) Neg mg/dL (Negative) 10/15/19 18:15 Urine Ketones Neg mg/dL (Negative) 10/15/19 18:15 Urine Blood Sm (Negative) 10/15/19 18:15 Urine Nitrite Neg (Negative) 10/15/19 18:15 Urine Bilirubin Neg (Negative) 10/15/19 18:15 Urine Urobilinogen < 2.0 mg/dL (<2.0) 10/15/19 18:15 Ur Leukocyte Esterase Mod (Negative) 10/15/19 18:15 Urine WBC (Auto) 40.0 /HPF (0.0-6.0) H 10/15/19 18:15 Urine RBC (Auto) 3.0 /HPF (0.0-6.0) 10/15/19 18:15 U Epithel Cells (Auto) 8.0 /HPF (0-13.0) 10/15/19 18:15 Urine Mucus Few /HPF 10/15/19 18:15 Active Medications - Current Medications Current Medications: Generic Name Dose Route Start Last Admin Trade Name Freq PRN Reason Stop Dose Admin Acetaminophen 650 mg 10/19/19 15:06 Tylenol PO Q4H PRN Pain, Mild (1-3) Albuterol 2.5 mg 10/17/19 08:30 10/20/19 07:20 Proventil IH 2.5 mg Q4HRT PRN Administration Shortness Of Breath Atorvastatin Calcium 40 mg 10/18/19 23:30 10/20/19 07:39 Lipitor PO Not Given QHS REY Benzonatate 100 mg 10/17/19 20:00 10/20/19 07:00 Tessalon Perles PO 100 mg TID REY Administration Budesonide 0.5 mg 10/17/19 20:00 10/20/19 07:20 Pulmicort IH 0.5 mg Q12HRT REY Administration Furosemide 40 mg 10/16/19 06:00 10/20/19 07:00 Lasix IV 40 mg DAILY@0600 REY Administration Guaifenesin 600 mg 10/15/19 22:00 10/20/19 10:14 Mucinex Er PO 600 mg BID REY Administration Amiodarone HCl 900 mg/ 500 mls @ 33.333 mls/hr 10/19/19 09:00 10/20/19 02:40 Dextrose IV Infused DIRECT REY Infusion Protocol 1 MG/MIN Losartan Potassium 50 mg 10/16/19 10:00 10/20/19 10:14 Cozaar PO 50 mg QDAY REY Administration Metoprolol Tartrate 25 mg 10/19/19 05:00 10/20/19 10:14 Metoprolol PO 25 mg BID REY Administration Ondansetron HCl 4 mg 10/19/19 15:06 10/20/19 12:24 Zofran IV 4 mg Q8H PRN Administration Nausea And Vomiting Pantoprazole Sodium 40 mg 10/16/19 10:00 10/20/19 10:14 Protonix PO 40 mg DAILY REY Administration Polyethylene Glycol 17 gm 10/16/19 13:00 10/20/19 10:15 Miralax 3350 PO 17 gm QDAY REY Administration Potassium Chloride 40 meq 10/20/19 10:00 10/20/19 10:15 Potassium Chloride PO 40 meq QDAY REY Administration Sodium Chloride 10 ml 10/19/19 15:06 Sodium Chloride Flush Syringe 10 Ml IV PRN PRN LINE FLUSH
[2019-10-20] MEDS ORDERED: hydrALAZINE 20 MG/1 ML INJ IV PRN (16:13)
--- NOTE | 2019-10-20 16:17 | Progress Note ---
Assessment and Plan Currently stable cardiac status. Pt has converted to NSR, amio gtt d/c'd. Cont PO lopressor. No systemic AC at this time in setting of recent suspected CVA with tPA administration on 10/18/2019 @ ~1800. Will defer to neurology for recommendations regarding initiation of systemic AC. Echo done 10/15/2019 showed EF 30-35%, pseudonormalization, LA mildly dilated, mod AR, mild-mod MR, minimal pericardial effusion, mod pleural effusion, mod pulm HTN with RVSP 68mmHg. Lexiscan MPI stress test done 10/18/2019 showed small area of myocardial ischemia in the inferoapical region of LV, EF 43%. The patient has been seen in conjunction with Dr. Martin who agrees with the assessment and plan of care. - Patient Problems (1) CVA (cerebral vascular accident) Current Visit: Yes Status: Acute (2) Pneumonia Current Visit: Yes Status: Acute (3) Atrial fibrillation with rapid ventricular response Current Visit: Yes Status: Acute (4) Acute HFrEF (heart failure with reduced ejection fraction) Current Visit: Yes Status: Acute (5) Cardiomyopathy Current Visit: Yes Status: Chronic Qualifiers: Cardiomyopathy type: other Qualified Code(s): I42.8 - Other cardiomyopathies (6) Hypertension Current Visit: Yes Status: Chronic (7) LBBB (left bundle branch block) Current Visit: Yes Status: Chronic (8) GERD (gastroesophageal reflux disease) Current Visit: Yes Status: Chronic Subjective Date of service: 10/20/19 Principal diagnosis: CVA; PNA; AFib Interval history: pt resting in bed, still with right-sided weakness. in SR on tele with HR 59 - 60s. no current cardiac complaints. Objective Last Vital Signs Temp 96.5 F L 10/20/19 11:59 Pulse 56 L 10/20/19 15:11 Resp 23 10/20/19 15:11 BP 160/62 10/20/19 15:11 Pulse Ox 95 10/20/19 15:11 - Physical Examination General: No Apparent Distress HEENT: Positive: PERRL Neck: Positive: neck supple Cardiac: Positive: Reg Rate and Rhythm, S1/S2 Lungs: Positive: Decreased Breath Sounds Neuro: Positive: Other (right-sided weakness and decreased movement ) Abdomen: Positive: Unremarkable /Rectal: Other (deferred) Skin: Positive: Bruising (upper extremities - diffuse) Musculoskeletal: Decreased Range of Motion (right side) Extremities: Present: normal - Imaging and Cardiology Echo: report reviewed (12/2018: EF 50 to 55%, moderate AR, moderate MR, moderate pulm htn) - Telemetry EKG Rhythm: Sinus Rhythm AV and intraventricular conduction: left bundle branch block
[2019-10-21] MEDS: FUROSEMIDE 40 MG/4 ML INJ IV SCH (06:16)
[2019-10-21] MEDS: BUDESONIDE 0.5 MG/2 ML NEBU IH SCH ×2 (08:59→20:54)
--- NOTE | 2019-10-21 11:20 | Magnetic Resonance Report ---
MRI BRAIN WITHOUT CONTRAST INDICATION / CLINICAL INFORMATION: stroke. Right hemiparesis. TECHNIQUE: Multiplanar, multisequence MR images of the brain were obtained. COMPARISON: CTA head and neck on 10/18/2019. FINDINGS: BRAIN / INTRACRANIAL CONTENTS: There is an acute lacunar infarct in the posterior limb of the left in ternal capsule without associated hemorrhage or adverse mass effect. There is no other acute infarct. There are extensive confluent chronic microvascular angiopathic changes in the deep cerebral white m atter and destiney which are similar to prior exams. Ventricular and cisternal size appears appropriate f or age. CRANIOCERVICAL JUNCTION: No significant abnormality. VASCULAR FLOW-VOIDS: No significant abnormality. ORBITS: No significant abnormality of visualized orbits. SINUSES / MASTOIDS: No significant abnormality of visualized sinuses and mastoid air cells. ADDITIONAL FINDINGS: None. IMPRESSION: 1. Acute lacunar infarct in the posterior limb of the left internal capsule. No other acute infarct o r other acute abnormality. 2. Advanced confluent cerebral white matter and pontine chronic small vessel ischemic change. Signer Name: Americo Cherry MD Signed: 10/21/2019 11:16 AM Workstation Name: [id number]
[2019-10-21] MEDS: BENZONATATE 100 MG CAP PO SCH ×3 (11:43→22:35)
[2019-10-21] MEDS: LOSARTAN 50 MG TAB PO SCH (11:46)
[2019-10-21] MEDS: METOPROLOL TARTRATE 25 MG TAB PO SCH ×2 (11:48→22:39)
[2019-10-21] MEDS: guaiFENesin ER 600 MG TAB PO SCH ×2 (11:49→22:32)
[2019-10-21] MEDS: POLYETHYLENE GLYCOL 3350 17 GM POWDER PO SCH (11:50)
[2019-10-21] MEDS: PANTOPRAZOLE 40 MG TAB PO SCH (11:51)
[2019-10-21] MEDS: POTASSIUM CHLORIDE 20 MEQ PACKET PO SCH (11:51)
--- NOTE | 2019-10-21 12:48 | Progress Note ---
Assessment and Plan 89 y/o female, followed by Kranthi with suspected allergies (per her), has never completed PFT's admitted with dyspnea and worsening shortness of breath with exertion now with possible stroke with right sided weakness. 10/21: Pulm orozco, stable. COPD is not the cause for increase dyspnea with exertion. if possible, will attempt paris in office as outpatient. Continue home regimen for allergy therapy. May need family development extension specialist and skin testing. No indication for systemic steroids. Will stop pulmicort therapy. 10/20: Stable for transfer to floor. Will send back to [facility] with remote tele. Follow up cardiology recs. 10/19: cOntinue q1 hour neuro checks patient received TPA at 17:17 on yesterday. PT/OT consult. Neurology follow up. Will likely need MRI either later today or tomorrow. Follow up cardiology recs. Remainder is below. 1. Patient was followed by [facility] for years but stopped going as she stated inhalers were prescribed over and over and none of them ever improved. She had a syncopal event trying to do PFT's so these were never finished and she has a history of Mitral Valve Prolapse diagnosed 20+ years ago. at this point I would really suggest cardiology evaluation and possible ischemic work up. 2. Will continue Pulmicort but will stop Brovana 3. Ok with PRN neb therapy 4. No indication for systemic steroids. Subjective Date of service: 10/21/19 Principal diagnosis: CVA; PNA; AFib Interval history: Transitioned out of ICU. Remains on room air but still dyspnic. Objective Vital Signs - 12hr 10/21/19 10/21/19 10/21/19 05:28 11:28 11:46 Temperature 97.9 F 97.7 F Pulse Rate 55 L 51 L 51 L Respiratory 18 19 Rate Blood Pressure 140/50 117/67 117/67 O2 Sat by Pulse 92 95 Oximetry 10/21/19 11:48 Temperature Pulse Rate 51 L Respiratory Rate Blood Pressure 117/67 O2 Sat by Pulse Oximetry Constitutional: no acute distress, alert Eyes: non-icteric ENT: oropharynx moist Neck: supple, no JVD Effort: normal Ascultation: Bilateral: diminished breath sounds Percussion: Bilateral: not dull Tactile fremitus: Bilateral: normal Cardiovascular: regular rate and rhythm Gastrointestinal: normoactive bowel sounds, soft Extremities: edema CBC and BMP: 10/17/19 05:05 10/17/19 05:10 ABG, PT/INR, D-dimer: PT/INR, D-dimer PT 14.6 Sec. (12.2-14.9) 10/15/19 13:37 INR 1.15 (0.87-1.13) H 10/15/19 13:37 Abnormal lab findings: Abnormal Labs 10/15/19 10/15/19 10/15/19 13:37 13:37 13:37 RBC 3.61 L MCH 33 H Lymph % (Auto) [place] % (Auto) 11.1 H Lymph # [place] # 0.9 H Seg Neutrophils % 70.5 H INR 1.15 H Sodium 131 L Chloride 94.9 L Carbon Dioxide 19 L BUN 21 H Glucose 106 H Lactic Acid NT-Pro-B Natriuret Pep Total Protein Albumin 3.6 L HDL Cholesterol Urine WBC (Auto) 10/15/19 10/15/19 10/15/19 13:37 14:45 18:15 RBC MCH Lymph % (Auto) [place] % (Auto) Lymph # [place] # Seg Neutrophils % INR Sodium Chloride Carbon Dioxide BUN Glucose Lactic Acid 2.30 H* NT-Pro-B Natriuret Pep 11828 H Total Protein Albumin HDL Cholesterol Urine WBC (Auto) 40.0 H 10/15/19 10/15/19 10/16/19 19:31 21:14 05:10 RBC 3.63 L MCH 33 H Lymph % (Auto) 8.8 L [place] % (Auto) Lymph # 0.5 L [place] # Seg Neutrophils % 86.6 H INR Sodium Chloride Carbon Dioxide BUN Glucose Lactic Acid 3.10 H* 3.10 H* NT-Pro-B Natriuret Pep Total Protein Albumin HDL Cholesterol Urine WBC (Auto) 10/17/19 10/17/19 10/19/19 05:05 05:10 11:22 RBC MCH 33 H Lymph % (Auto) [place] % (Auto) 12.2 H Lymph # [place] # 1.2 H Seg Neutrophils % INR Sodium 136 L Chloride 96.9 L Carbon Dioxide 21 L BUN 22 H Glucose Lactic Acid NT-Pro-B Natriuret Pep Total Protein 5.6 L Albumin 3.6 L HDL Cholesterol 75 H Urine WBC (Auto)
--- NOTE | 2019-10-21 13:43 | Progress Note ---
Assessment and Plan Currently stable cardiac status. Pt has converted to NSR. Cont PO lopressor. No systemic AC at this time in setting of recent suspected CVA with tPA administration on 10/18/2019 @ ~1800. Await MRI. Will defer to neurology for recommendations regarding initiation of systemic AC. Echo done 10/15/2019 showed EF 30-35%, pseudonormalization, LA mildly dilated, mod AR, mild-mod MR, minimal pericardial effusion, mod pleural effusion, mod pulm HTN with RVSP 68mmHg. Lexiscan MPI stress test done 10/18/2019 showed small area of myocardial ischemia in the inferoapical region of LV, EF 43%. The patient has been seen in conjunction with Dr. Martin who agrees with the assessment and plan of care. - Patient Problems (1) CVA (cerebral vascular accident) Current Visit: Yes Status: Acute (2) Pneumonia Current Visit: Yes Status: Acute (3) Atrial fibrillation with rapid ventricular response Current Visit: Yes Status: Acute (4) Acute HFrEF (heart failure with reduced ejection fraction) Current Visit: Yes Status: Acute (5) Cardiomyopathy Current Visit: Yes Status: Chronic Qualifiers: Cardiomyopathy type: other Qualified Code(s): I42.8 - Other cardiomyopathies (6) Hypertension Current Visit: Yes Status: Chronic (7) LBBB (left bundle branch block) Current Visit: Yes Status: Chronic (8) GERD (gastroesophageal reflux disease) Current Visit: Yes Status: Chronic Subjective Date of service: 10/21/19 Principal diagnosis: CVA; PNA; AFib Interval history: pt resting in bed, still with right-sided weakness. in SR on tele with HR 54 - 60s. no current cardiac complaints. Objective Last Vital Signs Temp 97.7 F 10/21/19 11:28 Pulse 51 L 10/21/19 11:48 Resp 19 10/21/19 11:28 BP 117/67 10/21/19 11:48 Pulse Ox 95 10/21/19 11:28 - Physical Examination General: No Apparent Distress HEENT: Positive: PERRL Neck: Positive: neck supple Cardiac: Positive: Reg Rate and Rhythm, S1/S2 Lungs: Positive: Decreased Breath Sounds Neuro: Positive: Other (right-sided weakness and decreased movement ) Abdomen: Positive: Unremarkable /Rectal: Other (deferred) Skin: Positive: Bruising (upper extremities - diffuse) Musculoskeletal: Decreased Range of Motion (right side) Extremities: Present: normal - Imaging and Cardiology Echo: report reviewed (12/2018: EF 50 to 55%, moderate AR, moderate MR, moderate pulm htn) AV and intraventricular conduction: left bundle branch block
--- NOTE | 2019-10-21 15:01 | Progress Note ---
Assessment and Plan /Acute Cerebral Infarct (inhouse) s/p tPA: - cont aspirin and statin, MRI brain showed infract on left internal capsule, - she says the right arm numbness still there but the strength and movement and right eyesight did improve after tPA - PT eval pending /Atrial fib, on metoprolol for rate control, need AC when clears by neuro /Right Aspiration Pneumonia: treated abx /JOCELYN, vasomotor nephropathy cr 1.1, est GFR 47 (last Cr 0.7 in 2015): treated with IVF, plateau /Accelerated hypertension: resolved, now normotensive with current meds /UTI: urine culture and treat with abx. No SIRS or sepsis found so far /Chest pains, believed to be from pneumonia, s/p stress test and Cardiology consulted /Hyponatremia, hypovolemia, dehydration: IVF, monitor bmp / Constipation: tried miralax, give Dulcolax pr, we did discuss colonoscopy and gave her appropriate recommendation /DVT ppx stopped due to tPA and + bruises and ecchymosis on the UEs Disposition: continue inpatient care, anticipate discharge in 1-2 days following Pt recommendation Brief History: Patient is a 89 yo woman with a history of hypertension and GERD who presented to [facility] ED with sob and cough. She was seen by her filter plant supervisor (Dr. Davenport) on Sunday where she was diagnosed with pneumonia and started on antibiotics and not responding to outpatient treatment. After the stress test on Sunday10/18/2019, Patient c/o acute episode of loss of movement of right leg and arm with numbness and right eye blindness. Called [facility] and consulted TELE Neurologist Dr. Miki Odell, s/p tPA. Same day she also converted to atrial fib and required amioderone drip. Patient had CT head without contrast that did not show any acute changes. * pCXR Impression: Right hilar fullness and right basilar interstitial pneumonia. Recommend follow-up to resolution. * MRI brain: infract on left internal capsule Hospitalist Physical Gen: WDWN, NAD, Awake, Alert, Orientated HEENT: NCAT, EOMI, PERRL, OP Clear Neck: supple, no adenopathy, no thyromegaly, no JVD CVS/Heart: RRR, normal S1S2, pulses present bilaterally Chest/Lungs: tachypneic, right coarse BS, Symmetrical chest expansion, good air entry bilaterally GI/Abdomen: soft, NTND, good bowel sounds, no guarding or rebound /Bladder: no suprapubic tenderness, no CVA or paraspinal tenderness Extermity/Skin: no c/c/e, + bruises and ecchymosis on the UEs MSK: FROM x 4 Neuro: CN 2-12 grossly intact, right hand sensory deficit, right pronator drift Psych: calm Subjective Date of service: 10/21/19 Principal diagnosis: CVA; PNA; AFib Interval history: patient seen and examined no acute issue, MRI showed acute CVA pending PT eval, c/o right sided weakness and numbness Objective - Constitutional Vitals: Vital Signs - 12hr 10/21/19 10/21/19 10/21/19 05:28 11:28 11:46 Temperature 97.9 F 97.7 F Pulse Rate 55 L 51 L 51 L Respiratory 18 19 Rate Blood Pressure 140/50 117/67 117/67 O2 Sat by Pulse 92 95 Oximetry 10/21/19 11:48 Temperature Pulse Rate 51 L Respiratory Rate Blood Pressure 117/67 O2 Sat by Pulse Oximetry - Labs CBC & Chem 7: 10/17/19 05:05 10/17/19 05:10
--- NOTE | 2019-10-21 15:33 | Progress Note ---
Assessment and Plan This is an 89 YO F with acute stroke s/p Alteplase Recommend: Continue aspirin and statin, VTE prophylaxis Work up appears to be complete Follow up with neurology outpatient fine for next level of care from a neuro standpoint once medically stable Subjective Date of service: 10/21/19 Principal diagnosis: CVA; PNA; AFib Interval history: Pt without new complaints. Objective - Vital Sign Vital Signs - 12hr 10/21/19 10/21/19 10/21/19 05:28 11:28 11:46 Temperature 97.9 F 97.7 F Pulse Rate 55 L 51 L 51 L Respiratory 18 19 Rate Blood Pressure 140/50 117/67 117/67 O2 Sat by Pulse 92 95 Oximetry 10/21/19 11:48 Temperature Pulse Rate 51 L Respiratory Rate Blood Pressure 117/67 O2 Sat by Pulse Oximetry - General Apperance Constitutional: comfortable - Respiratory Respiratory: lungs clear, normal breath sounds - Cardiovascular Cardiovascular: regular rate - Gastrointestinal Gastrointestinal: normoactive bowel sounds - Neurologic Cranial nerve examination: PERRL, EOMI, face symmetric, tongue midline, facial droop Motor examination - right side: 4/5: biceps, triceps, wrist flexion, wrist extension, meat blender, hip flexors, knee extensors, dorsiflexion, toe extension (EHL), plantarflexion Motor examination - left side: 5/5: biceps, triceps, wrist flexion, wrist extension, meat blender, hip flexors, knee extensors, dorsiflexion, toe extension (EHL), plantarflexion - Laboratory Findings CBC and BMP: 10/17/19 05:05 10/17/19 05:10 Abnormal Lab Findings: Abnormal Labs 10/15/19 10/15/19 10/15/19 13:37 13:37 13:37 RBC 3.61 L MCH 33 H Lymph % (Auto) [place] % (Auto) 11.1 H Lymph # [place] # 0.9 H Seg Neutrophils % 70.5 H INR 1.15 H Sodium 131 L Chloride 94.9 L Carbon Dioxide 19 L BUN 21 H Glucose 106 H Lactic Acid NT-Pro-B Natriuret Pep Total Protein Albumin 3.6 L HDL Cholesterol Urine WBC (Auto) 10/15/19 10/15/19 10/15/19 13:37 14:45 18:15 RBC MCH Lymph % (Auto) [place] % (Auto) Lymph # [place] # Seg Neutrophils % INR Sodium Chloride Carbon Dioxide BUN Glucose Lactic Acid 2.30 H* NT-Pro-B Natriuret Pep 81297 H Total Protein Albumin HDL Cholesterol Urine WBC (Auto) 40.0 H 10/15/19 10/15/19 10/16/19 19:31 21:14 05:10 RBC 3.63 L MCH 33 H Lymph % (Auto) 8.[address] [place] % (Auto) Lymph # 0.[address] [place] # Seg Neutrophils % 86.6 H INR Sodium Chloride Carbon Dioxide BUN Glucose Lactic Acid 3.10 H* 3.10 H* NT-Pro-B Natriuret Pep Total Protein Albumin HDL Cholesterol Urine WBC (Auto) 10/17/19 10/17/19 10/19/19 05:05 05:10 11:22 RBC MCH 33 H Lymph % (Auto) [place] % (Auto) 12.2 H Lymph # [place] # 1.2 H Seg Neutrophils % INR Sodium 136 L Chloride 96.9 L Carbon Dioxide 21 L BUN 22 H Glucose Lactic Acid NT-Pro-B Natriuret Pep Total Protein 5.6 L Albumin 3.6 L HDL Cholesterol 75 H Urine WBC (Auto)
[2019-10-21] MEDS: ASPIRIN EC 325 MG TAB PO SCH (16:06)
[2019-10-22] MEDS: BUDESONIDE 0.5 MG/2 ML NEBU IH SCH ×2 (07:29→20:20)
[2019-10-22] MEDS: BENZONATATE 100 MG CAP PO SCH ×3 (08:40→21:02)
--- NOTE | 2019-10-22 10:26 | Progress Note ---
Assessment and Plan Currently stable cardiac status. Pt remains in NSR. Cont PO lopressor with hold parameters. Recommend initiation of Eliquis 5mg BID if/when okay per neurology and if no contraindications. Nothing further to add from cardiac perspective at this time. Will sign off. Recommend follow up in our office with Dr. Martin within 1-2 weeks of hospital discharge ([phone]). The patient has been seen in conjunction with Dr. Martin who agrees with the assessment and plan of care. - Patient Problems (1) CVA (cerebral vascular accident) Current Visit: Yes Status: Acute (2) Pneumonia Current Visit: Yes Status: Acute (3) Atrial fibrillation with rapid ventricular response Current Visit: Yes Status: Acute (4) Acute HFrEF (heart failure with reduced ejection fraction) Current Visit: Yes Status: Acute (5) Cardiomyopathy Current Visit: Yes Status: Chronic Qualifiers: Cardiomyopathy type: other Qualified Code(s): I42.8 - Other cardiomyopathies (6) Hypertension Current Visit: Yes Status: Chronic (7) LBBB (left bundle branch block) Current Visit: Yes Status: Chronic (8) GERD (gastroesophageal reflux disease) Current Visit: Yes Status: Chronic Subjective Date of service: 10/22/19 Principal diagnosis: CVA; PNA; AFib Interval history: pt resting in bed, still with right-sided weakness. in SR on tele with HR 50 - 60s. no current cardiac complaints. Objective Last Vital Signs Temp 98.4 F 10/22/19 05:09 Pulse 57 L 10/22/19 07:31 Resp 16 10/22/19 07:31 BP 138/44 10/22/19 05:09 Pulse Ox 92 10/22/19 07:31 - Physical Examination General: No Apparent Distress HEENT: Positive: PERRL Neck: Positive: neck supple Cardiac: Positive: Reg Rate and Rhythm, S1/S2 Lungs: Positive: Decreased Breath Sounds Neuro: Positive: Other (right-sided weakness and decreased movement ) Abdomen: Positive: Unremarkable /Rectal: Other (deferred) Skin: Positive: Bruising (upper extremities - diffuse) Musculoskeletal: Decreased Range of Motion (right side) Extremities: Present: normal - Imaging and Cardiology Echo: report reviewed (12/2018: EF 50 to 55%, moderate AR, moderate MR, moderate pulm htn) AV and intraventricular conduction: left bundle branch block
[2019-10-22] MEDS: POLYETHYLENE GLYCOL 3350 17 GM POWDER PO SCH (10:45)
[2019-10-22] MEDS: PANTOPRAZOLE 40 MG TAB PO SCH (10:45)
[2019-10-22] MEDS: METOPROLOL TARTRATE 25 MG TAB PO SCH ×2 (10:45→21:03)
[2019-10-22] MEDS: guaiFENesin ER 600 MG TAB PO SCH ×2 (10:45→21:02)
[2019-10-22] MEDS: ASPIRIN EC 325 MG TAB PO SCH (10:45)
[2019-10-22] MEDS: POTASSIUM CHLORIDE 20 MEQ PACKET PO SCH (10:45)
[2019-10-22] MEDS: LOSARTAN 50 MG TAB PO SCH (12:11)
--- NOTE | 2019-10-22 14:50 | Progress Note ---
Assessment and Plan /Acute Cerebral Infarct (inhouse) s/p tPA: - cont aspirin and statin, MRI brain showed infract on left internal capsule, - she says the right arm numbness still there but the strength and movement and right eyesight did improve after tPA - PT recommended acute rehab /Atrial fib, s/p amioderone drip. Now on metoprolol for rate control, need AC when clears by neuro as patient is s/p tPA /Right Aspiration Pneumonia: treated abx /JOCELYN, vasomotor nephropathy cr 1.1, est GFR 47 (last Cr 0.7 in 2015): treated with IVF, plateau /Accelerated hypertension: resolved, now normotensive with current meds /UTI: urine culture and treat with abx. No SIRS or sepsis found so far /Chest pains, believed to be from pneumonia, s/p stress test and Cardiology consulted /Hyponatremia, hypovolemia, dehydration: IVF, monitor bmp / Constipation: tried miralax, give Dulcolax pr, we did discuss colonoscopy and gave her appropriate recommendation /DVT ppx stopped due to tPA and + bruises and ecchymosis on the UEs Disposition: continue inpatient care, anticipate discharge in 1-2 days following acute rehab set up Brief History: Patient is a 89 yo woman with a history of hypertension and GERD who presented to [facility] ED with sob and cough. She was seen by her cdl dedicated truck driver (Dr. Davenport) on Sunday where she was diagnosed with pneumonia and started on antibiotics and not responding to outpatient treatment. After the stress test on Sunday10/18/2019, Patient c/o acute episode of loss of movement of right leg and arm with numbness and right eye blindness. Called [facility] and consulted TELE Neurologist Dr. Miki Odell, s/p tPA. Same day she also converted to atrial fib and required amioderone drip. Patient had CT head without contrast that did not show any acute changes. * pCXR Impression: Right hilar fullness and right basilar interstitial pneumonia. Recommend follow-up to resolution. * MRI brain: infract on left internal capsule Hospitalist Physical Gen: WDWN, NAD, Awake, Alert, Orientated HEENT: NCAT, EOMI, PERRL, OP Clear Neck: supple, no adenopathy, no thyromegaly, no JVD CVS/Heart: RRR, normal S1S2, pulses present bilaterally Chest/Lungs: tachypneic, right coarse BS, Symmetrical chest expansion, good air entry bilaterally GI/Abdomen: soft, NTND, good bowel sounds, no guarding or rebound /Bladder: no suprapubic tenderness, no CVA or paraspinal tenderness Extermity/Skin: no c/c/e, + bruises and ecchymosis on the UEs MSK: FROM x 4 Neuro: CN 2-12 grossly intact, right hand sensory deficit, right pronator drift Psych: calm Subjective Date of service: 10/22/19 Principal diagnosis: CVA; PNA; AFib Interval history: patient seen and examined no acute issue, BP running low today, BP meds on hold discussed with at bedside Objective - Constitutional Vitals: Vital Signs - 12hr 10/22/19 10/22/19 10/22/19 05:09 07:31 10:39 Temperature 98.4 F 97.8 F Pulse Rate 55 L 56 L Pulse Rate [ 57 L Anterior Bilateral Throughout] Respiratory 16 18 Rate Respiratory 16 Rate [Anterior Bilateral Throughout] Blood Pressure 138/44 129/76 O2 Sat by Pulse 92 92 96 Oximetry 10/22/19 12:11 Temperature Pulse Rate 56 L Pulse Rate [ Anterior Bilateral Throughout] Respiratory Rate Respiratory Rate [Anterior Bilateral Throughout] Blood Pressure 129/76 O2 Sat by Pulse Oximetry - Labs CBC & Chem 7: 10/17/19 05:05 10/17/19 05:10
[2019-10-23] MEDS: BENZONATATE 100 MG CAP PO SCH ×2 (08:00→14:50)
[2019-10-23] MEDS: BUDESONIDE 0.5 MG/2 ML NEBU IH SCH (08:33)
[2019-10-23] MEDS: ALBUTEROL 2.5 MG/3 ML NEBU IH PRN (08:34)
[2019-10-23] MEDS: LOSARTAN 50 MG TAB PO SCH (10:07)
[2019-10-23] MEDS: POTASSIUM CHLORIDE 20 MEQ PACKET PO SCH (10:07)
[2019-10-23] MEDS: POLYETHYLENE GLYCOL 3350 17 GM POWDER PO SCH (10:07)
[2019-10-23] MEDS: PANTOPRAZOLE 40 MG TAB PO SCH (10:08)
[2019-10-23] MEDS: guaiFENesin ER 600 MG TAB PO SCH (10:08)
[2019-10-23] MEDS: METOPROLOL TARTRATE 25 MG TAB PO SCH (10:08)
[2019-10-23] MEDS: ASPIRIN EC 325 MG TAB PO SCH (10:08)
--- NOTE | 2019-10-23 15:21 | Event Note ---
Date: 10/23/19 discussed with neurologist and recommended to start on eliquis - would start from today
--- NOTE | 2019-10-23 15:33 | Discharge Summary ---
Providers - Providers Date of Admission: 10/16/19 13:00 Date of discharge: 10/23/19 Attending physician: RHETT ARROYO 10/17/19 15:46 Consult to Physician [CONS] Routine Comment: called answClari ramey/ betty Consulting Provider: EDDIE GREENBERG Physician Instructions: Reason For Exam: CHF, elevated troponin, tachycardia 10/19/19 15:06 Consult to Case Management [CONS] Routine Services Needed at Discharge: Physical Therapy Notified:: Zoë Patel Phone number called:: in person Was contact made?: Yes If yes, spoke with:: Zoë Patel Occupational Therapy Evaluate and Treat [CONS] Routine Comment: Reason For Exam: Neuro deficits Physical Therapy Evaluation and Treat [CONS] Routine Comment: Reason For Exam: Neuro deficits 10/19/19 15:07 Speech Therapy Evaluation and Treat [CONS] Routine Reason For Exam: swallow eval 10/21/19 08:34 Consult to Physician [CONS] Routine Comment: Consulting Provider: EVE MATOS Physician Instructions: Reason For Exam: CVA Primary care physician: OSCAR DORADO MD Hospitalization Condition: Stable Hospital course: Patient is a 89 yo woman with a history of hypertension and GERD who presented to [facility] ED with sob and cough. She was seen by her director college (Dr. Davenport) on Sunday where she was diagnosed with pneumonia and started on antibiotics and not responding to outpatient treatment. After the stress test on Sunday10/18/2019, Patient c/o acute episode of loss of movement of right leg and arm with numbness and right eye blindness. Called [facility] and consulted TELE Neurologist Dr. Miki Odell, s/p tPA. Same day she also converted to atrial fib and required amioderone drip. Patient had CT head without contrast that did not show any acute changes. MRI brain showed infract on left internal capsule. Patient was evaluated by PT and recommened acute rehab. She was then placed on eliquis for AC - cleared by neuro to start on before discharge. She was discharged to acute rehab in stable condition. * pCXR Impression: Right hilar fullness and right basilar interstitial pneumonia. Recommend follow-up to resolution. * MRI brain: 1. Acute lacunar infarct in the posterior limb of the left internal capsule. No other acute infarct or other acute abnormality. 2. Advanced confluent cerebral white matter and pontine chronic small vessel ischemic change. * 2d echo : Ef 30-35% * Head/neck CTA * Carotid doppler Discharge diagnosis and Mx /Acute Cerebral Infarct (inhouse) s/p tPA: - Placed on aspirin and statin, MRI brain showed infract on left internal capsule, - PT recommended acute rehab - discussed with cardiology and neurology - placed on eliquis as with patient wuth CHF and atrial fib /Atrial fib, s/p amioderone drip. Now on metoprolol for rate control, started on eliquis for AC /Acute systolic CHF with reduced EF Echocardiogram on admission found an EF reduced to 30 to 35 percent from previously normal in December 2018. s/p stress test, cardiology following - need further outpt workup /Right Aspiration Pneumonia: treated abx /JOCELYN, vasomotor nephropathy cr 1.1, est GFR 47 (last Cr 0.7 in 2015): treated with IVF, plateaued /Accelerated hypertension: resolved, now normotensive with current meds /UTI: urine culture and treat with abx. No SIRS or sepsis found so far /Chest pains, believed to be from pneumonia, s/p stress test and Cardiology consulted /Hyponatremia, hypovolemia, dehydration: IVF, monitor bmp / Constipation: tried miralax, give Dulcolax pr, we did discuss colonoscopy and gave her appropriate recommendation /DVT ppx stopped due to tPA and + bruises and ecchymosis on the UEs, on SCD Disposition: acute rehab Hospitalist Physical Gen: WDWN, NAD, Awake, Alert, Orientated HEENT: NCAT, EOMI, PERRL, OP Clear Neck: supple, no adenopathy, no thyromegaly, no JVD CVS/Heart: RRR, normal S1S2, pulses present bilaterally Chest/Lungs: tachypneic, right coarse BS, Symmetrical chest expansion, good air entry bilaterally GI/Abdomen: soft, NTND, good bowel sounds, no guarding or rebound /Bladder: no suprapubic tenderness, no CVA or paraspinal tenderness Extermity/Skin: no c/c/e, + bruises and ecchymosis on the UEs - Improving MSK: FROM x 4 Neuro: CN 2-12 grossly intact, right hand sensory deficit, right pronator drift, right leg weakness Psych: calm Disposition: [id number]AC[facility] Time spent for discharge: 34 minutes Core Measure Documentation - Palliative Care Palliative Care/ Comfort Measures: Not Applicable - Core Measures Any of the following diagnoses?: heart failure, stroke - Heart Failure Discharge Requirements SANDY/ARB for LVSD if EF <40%: Yes Beta amando at discharge: Yes - Stroke Discharge Requirements Statin for LDL = or >70 mg/dl on DC: Yes Anticoag for atrial fib/atrial flutter: Yes Antithrombotic for ischemic stroke: Yes Exam - Constitutional Vitals: Temp Pulse Resp BP Pulse Ox 97.6 F 59 L 18 138/55 95 10/23/19 11:33 10/23/19 11:33 10/23/19 11:33 10/23/19 11:33 10/23/19 11:33 Plan Activity: up only with assistance, fall precautions Diet: low fat, low salt Special Instructions: no heavy lifting Follow up with: MILTON JACOBSON MD [Staff Physician] - 7 Days OSCAR DORADO MD [Primary Care Provider] - 3-5 Days EDDIE GREENBERG MD [Staff Physician] - 7 Days Prescriptions: Losartan [Cozaar] 50 mg PO QDAY #30 tablet Polyethylene Glycol 3350 [Miralax 3350] 17 gm PO QDAY #30 powd.pack guaiFENesin ER [Mucinex ER] 600 mg PO BID #10 tablet Pantoprazole [Protonix TAB] 40 mg PO DAILY #30 tablet Budesonide [Pulmicort Respules] 0.5 mg IH Q12HRT #30 nebu Ipratropium/Albuterol Sulfate [DUONEB *Not for PRN Use*] 1 ampul IH TIDRT PRN #30 ampul.neb PRN Reason: Shortness Of Breath
[2019-10-23 18:18] VITALS: BP 145/50
[2019-10-23] MEDS ORDERED: APIXABAN 5 MG TAB PO SCH (22:00)
== END 2019-10-23 19:05 | DRG 177 ==
LOC: ED 12:53 → 2B-ACE 14:57 → OBSVTOIN 10-16 13:00 → CC1 10-18 17:56 → 3A 10-20 15:58
PROVIDERS: ADMIT Internal Medicine; ATTEND Internal Medicine
DX: J69.0 Pneumonitis due to inhalation of food and vomit (principal); N17.0 Acute kidney failure with tubular necrosis; I63.9 Cerebral infarction, unspecified; I50.23 Acute on chronic systolic (congestive) heart failure; N39.0 Urinary tract infection, site not specified; E87.1 Hypo-osmolality and hyponatremia; I42.9 Cardiomyopathy, unspecified; E87.2 Acidosis; J44.0 Chronic obstructive pulmonary disease with (acute) lower respiratory infection; K21.9 Gastro-esophageal reflux disease without esophagitis; I11.0 Hypertensive heart disease with heart failure; I44.7 Left bundle-branch block, unspecified; I48.91 Unspecified atrial fibrillation; E86.0 Dehydration; I27.20 Pulmonary hypertension, unspecified; Z90.49 Acquired absence of other specified parts of digestive tract; Z90.710 Acquired absence of both cervix and uterus; Z82.49 Family history of ischemic heart disease and other diseases of the circulatory system; Z79.82 Long term (current) use of aspirin; Z79.899 Other long term (current) drug therapy; Z87.891 Personal history of nicotine dependence
CPT/HCPCS: 36415; 70450; 70496; 70498; 70551; 71045; 78452; 80053; 80061; 81001; 82140; 82962; 83735; 83880; 84484; 85025; 85610; 85730; 87040; 87086; 93005; 93010; 93017; 93306; 93880; 94640; 94644; 94760; G0378; A9270-GY; A9502; J0282; J0360; J0456; J0696; J1160; J1650; J1940; J2405; J2785; J2920; J2997; J7040; J7050; J7060; Q9967

== ENCOUNTER 2020-10-12 10:18 | Emergency (ER) | payer MEDICARE, OTHER ==
[2020-10-12] MEDS ORDERED: SODIUM CHLORIDE 0.9% 500 ML 500 ML IV ONE (11:01)
[2020-10-12] MEDS ORDERED: SODIUM CHLORIDE 0.9% 1000 ML 1,000 ML ONE (11:05)
--- NOTE | 2020-10-12 11:36 | Emergency Department Report ---
ED Shortness of Breath HPI - General Stated Complaint: EDGARDO Time Seen by Provider: 10/12/20 10:50 Source: patient, EMS - History of Present Illness Initial Comments: 89-year-old female, history of atrial fibrillation, COPD and CHF presents to ED with difficulty breathing since yesterday. Patient states she is "always short of breath "but states it became worse on yesterday. Caregiver reports she was given a breathing treatment without improvement of her status. EMS reports O2 sats on room air 92 to 93%. Patient reports she does not wear O2. She denies any chest pain, leg pain or swelling, fever, cough, vomiting, diarrhea, known exposure to anyone who has tested positive for COVID-19. Patient was not given any nebulizer treatment by EMS. Patient is currently tachycardic. MD Complaint: shortness of breath -: days(s) (2) Severity: moderate Consistency: constant Improves With: nothing Worsens With: nothing Known History Of: COPD, congestive heart failure - Related Data Home Medications Medication Instructions Recorded Confirmed Last Taken Esomeprazole Magnesium [NexIUM] 40 mg PO QDAY 08/15/20 10/12/20 Unknown Fluticasone Propionate 15.8 ml NS DAILY 08/15/20 10/12/20 Unknown Furosemide [Lasix TAB] 40 mg PO DAILY 08/15/20 10/12/20 Unknown Rivaroxaban [Xarelto] 10 mg PO QDAY 08/15/20 10/12/20 Unknown Tiotropium [place] [Spiriva 4 gm IH BID 08/15/20 10/12/20 Unknown Respimat] Gabapentin [Neurontin] 300 mg PO BID 10/12/20 10/12/20 Unknown Metoprolol Xl [Toprol Xl] 25 mg PO BID 10/12/20 10/12/20 Unknown Potassium Chloride 10 meq PO DAILY 10/12/20 10/12/20 Unknown Previous Rx's Medication Instructions Recorded Last Taken Type ALBUTEROL NEB's [Proventil 0.083% 2.5 mg IH Q4HRT PRN nebu 11/14/19 Unknown Rx NEBS] Acetaminophen [Acetaminophen TAB] 650 mg PO Q6H PRN tablet 11/14/19 Unknown Rx Allergies Allergy/AdvReac Type Severity Reaction Status Date / Time No Known Allergies Allergy Unverified 10/12/20 13:52 ED Review of Systems ROS: Stated complaint: EDGARDO Other details as noted in HPI Comment: All other systems reviewed and negative Constitutional: denies: chills, fever Respiratory: shortness of breath. denies: cough Cardiovascular: denies: chest pain Gastrointestinal: denies: vomiting, diarrhea ED Past Medical Hx - Past Medical History Hx Hypertension: Yes Hx CVA: No Hx Heart Attack/AMI: No (NORMAL KIRTI 2016; EF 5560) Hx Congestive Heart Failure: No Hx Diabetes: No Hx Deep Vein Thrombosis: No Hx Pulmonary Embolism: No Hx GERD: Yes Hx Liver Disease: No Hx Renal Disease: No Hx Sickle Cell Disease: No Hx Arthritis: No Hx Headaches / Migraines: No Hx Seizures: No Hx Kidney Stones: No Hx Psychiatric Treatment: No Hx Asthma: No Hx COPD: Yes (SMOKER/ BRONCHITIS) Hx Tuberculosis: No Hx Dementia: No Hx HIV: No Additional medical history: KNOWN LBBB - Surgical History Hx Appendectomy: Yes Hx Breast Surgery: Yes Additional Surgical History: Hysterectomy - Social History Smoking Status: Never Smoker - Medications Home Medications: Home Medications Medication Instructions Recorded Confirmed Last Taken Type ALBUTEROL NEB's [Proventil 0.083% 2.5 mg IH Q4HRT PRN nebu 11/14/19 10/12/20 Unknown Rx NEBS] Acetaminophen [Acetaminophen TAB] 650 mg PO Q6H PRN tablet 11/14/19 10/12/20 Unknown Rx Esomeprazole Magnesium [NexIUM] 40 mg PO QDAY 08/15/20 10/12/20 Unknown History Fluticasone Propionate 15.8 ml NS DAILY 08/15/20 10/12/20 Unknown History Furosemide [Lasix TAB] 40 mg PO DAILY 08/15/20 10/12/20 Unknown History Rivaroxaban [Xarelto] 10 mg PO QDAY 08/15/20 10/12/20 Unknown History Tiotropium [place] [Spiriva 4 gm IH BID 08/15/20 10/12/20 Unknown History Respimat] Gabapentin [Neurontin] 300 mg PO BID 10/12/20 10/12/20 Unknown History Metoprolol Xl [Toprol Xl] 25 mg PO BID 10/12/20 10/12/20 Unknown History Potassium Chloride 10 meq PO DAILY 10/12/20 10/12/20 Unknown History ED Physical Exam - General General appearance: alert - Head Head exam: Present: atraumatic, normocephalic - Eye Eye exam: Present: normal appearance - ENT ENT exam: Present: mucous membranes moist - Neck Neck exam: Present: normal inspection - Respiratory Respiratory exam: Present: normal lung sounds bilaterally, respiratory distress (Mild), other (Tachypnea present). Absent: wheezes, rales - Cardiovascular Cardiovascular Exam: Present: tachycardia, irregular rhythm - GI/Abdominal GI/Abdominal exam: Present: soft. Absent: distended, tenderness - Extremities Exam Extremities exam: Present: normal inspection. 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 Absent: rash ED Course Vital Signs 10/12/20 11:40 Pulse Rate 150 H O2 Sat by Pulse 95 Oximetry - Reevaluation(s) Reevaluation #1: 10/12/20 11:20 Called to room approx 3 minutes after leaving this patient who was awake and talking to me, asking for something to eat. Nurse reports she left the room briefly to get IV fluids. When she returned pt was bradycardic and pulseless. Chest compressions were immediately initiated. Pt was intubated by myself. She was given soidum bicarb and 2 rounds of Epi, and subsequently had return of pulses. 10/12/20 11:35 Called back to room because pt appeared to be in Vtach, with a pulse. Pt actually converted spontaneously. Amiodarone was given. 10/12/20 11:49 Pt coded again. PEA. One round of Epi given. ROSC achieved. 10/12/20 12:06 Had discussion with son, Sanjay Ornelas, over the phone ([phone]). Made him aware of patient status. He states he does not want patient to continue to code back and forth. He would like for her to go peacefully. Agrees with making patient DNR. 10/12/20 12:24 Time of called at 12:24 PM. - Intubation Time Out Performed: No Laryngoscope: fiberoptic video scope Size: 3 ET Tube Size: 7.5 Tube Secured Depth (cm): 22 Tube Secured Location: lips Tube Placement Confirmation: visualized tube passing t, equal breath sounds bilat, no breath sounds over epi, confirmation by capnometr Patient Tolerated Procedure: well Intubation Complications: none ED Medical Decision Making - EKG Data -: EKG Interpreted by Me EKG shows normal: ST-T waves Rate: tachycardia - EKG Data Interpretation: other (RBBB, Atrial fibrillation) - Medical Decision Making 89-year-old female presented to ED with difficulty breathing since yesterday. Upon my initial contact with patient, she was tachycardic into the 140s, with systolic blood pressure in the 90s. Patient was alert and oriented, asking for food. Shortly after leaving the room to enter orders for her, I was called back into the room because patient had become bradycardic and went into cardiac arrest. Approximately 1 hour was spent intermittently coding patient. Ultimately, I spoke with patient's son over the phone who decided that if patient were to lose her pulse again, he did not want resuscitation. He gave consent for patient to be DNR. Time of was then called at 12:24 PM. Son notified. - Differential Diagnosis ACS, PE, infection Critical Care Time: Yes Critical care time in (mins) excluding proc time.: 35 Critical care attestation.: If time is entered above; I have spent that time in minutes in the direct care of this critically ill patient, excluding procedure time. Critical Care Time: 35 min ED Disposition Clinical Impression: Cardiac arrest, Pneumonia Disposition: DC-20 Is pt being admited?: No Condition: Stable Instructions: Bacterial Pneumonia (ED) Referrals: PRIMARY CARE, [Primary Care Provider] - 3-5 Days Time of Disposition: 12:30
--- NOTE | 2020-10-12 11:54 | XRay Report ---
CHEST 1 VIEW INDICATION: sob. COMPARISON: 08/15/2020 FINDINGS: Support devices: Endotracheal tube is in satisfactory position. Heart: Stable. Lungs/Pleura: Somewhat patchy airspace disease is seen in the right mid to upper lung. No pleural abn ormality. IMPRESSION: 1. Right upper lobe pneumonia. 2. Endotracheal tube is in satisfactory position. Signer Name: Crow Rapp MD Signed: 10/12/2020 11:50 AM Workstation Name: [id number][id number]
[2020-10-12] MEDS ORDERED: AMIODARONE 150 MG in DEXTROSE 5% IN WATER 97 ML IV ONE (12:00)
[2020-10-12] MEDS ORDERED: AMIODARONE 900 MG in DEXTROSE 5% IN WATER 482 ML IV SCH (12:00)
[2020-10-12 15:37] VITALS: BP 94/51
== END 2020-10-12 17:09 ==
LOC: ED 10:18
DX: I46.9 Cardiac arrest, cause unspecified (principal); J18.9 Pneumonia, unspecified organism; I10 Essential (primary) hypertension; K21.9 Gastro-esophageal reflux disease without esophagitis; Z90.710 Acquired absence of both cervix and uterus; Z79.899 Other long term (current) drug therapy
CPT/HCPCS: 31500; 71045; 82962; 92950; 93005; 94002; 99291; J0282; J7030; J7060